=== PATIENT | male | born 1935 | race Caucasian/White ===

== ENCOUNTER → 2017-10-11 13:45 | Outpatient (CLI) | payer OTHER, SELFPAY ==
[2017-10-11 14:02] LABS: Add Manual Diff / Slide Review NO; Basophils Percent Auto 0.7 % (0-2); Eosinophils Percent Auto 0.8 % (2-4); Hematocrit 42.1 % (41-53); Hemoglobin 14.4 g/dL (13.5-17.5); Lymphocytes Percent Auto 29.6 % (25-40); Mean Corpuscular HGB Conc 34.3 % (30-36); Mean Corpuscular Hemoglobin 32.6 PG (26-34); Mean Corpuscular Volume 95.1 fL (80-100); Monocytes Percent Auto 9.2 % (3-14); Neutrophils Absolute Auto 4400 /uL (3000-5900); Neutrophils Percent Auto 59.7 % (50-75); Platelet Count 164 X10^3/uL (150-400); Red Blood Cell Count 4.42 X10^6/uL (4.5-5.9); White Blood Cell Count 7.3 X10^3/uL (4.5-11.0)
[2017-10-11 14:10] LABS: Alanine Aminotransferase 31 IU/L (21-72); Albumin 4.1 g/dL (3.5-5.0); Albumin Globulin Ratio 1.4 (1.0-2.8); Alkaline Phosphatase 78 U/L (38-126); Aspartate Aminotransferase 26 IU/L (17-59); BUN Creatinine Ratio 33.3 (6-22); Bilirubin Total 0.6 mg/dL (0.2-1.3); Blood Urea Nitrogen 40 mg/dL (9-20); Calcium 9.5 mg/dL (8.4-10.2); Carbon Dioxide 26 mmol/L (22-32); Chloride 101 mmol/L (98-107); Globulin 2.9 g/dL (1.7-4.1); Glucose 85 mg/dL (80-110); HEMOLYSIS 20 (0-50); Lactate Dehydrogenase 346 U/L (313-618); Potassium 4.9 mmol/L (3.4-5.1); Sodium 142 mmol/L (137-145)
== END ==
PROVIDERS: Family Provider Family Medicine; PCP Family Medicine; Visit Provider Nurse Practitioner Gerontology
DX: C83.30 Diffuse large B-cell lymphoma, unspecified site (principal)
CPT/HCPCS: 36415; 80053; 83615; 85025

== ENCOUNTER → 2018-02-07 10:18 | Outpatient (CLI) | payer OTHER, SELFPAY ==
[2018-02-07 10:50] LABS: Hemoglobin A1C% w Est Avg Glu 5.7 % (4.0-6.0)
[2018-02-07 11:12] LABS: Alanine Aminotransferase 48 IU/L (21-72); Albumin 4.1 g/dL (3.5-5.0); Albumin Globulin Ratio 1.6 (1.0-2.8); Alkaline Phosphatase 114 U/L (38-126); Aspartate Aminotransferase 31 IU/L (17-59); Bilirubin Total 0.9 mg/dL (0.2-1.3); Blood Urea Nitrogen 36 mg/dL (9-20); Calcium 9.7 mg/dL (8.4-10.2); Carbon Dioxide 31 mmol/L (22-32); Chloride 104 mmol/L (98-107); Cholesterol 88 mg/dL (140-199); Estimated Glomerular Filt Rate > 60.0 mL/min (>60); Globulin 2.6 g/dL (1.7-4.1); Glucose 80 mg/dL (80-110); HDL Cholesterol 39 mg/dL (40-60); HEMOLYSIS < 15 (0-50); LDL Cholesterol Calculated 31 mg/dL (<100); Sodium 144 mmol/L (137-145); Total Protein 6.7 g/dL (6.3-8.2); Triglycerides 90 mg/dL (35-150)
[2018-02-07 11:16] LABS: Potassium 5.4 mmol/L (3.4-5.1)
== END ==
PROVIDERS: PCP Family Medicine; Visit Provider Family Medicine
DX: E11.9 Type 2 diabetes mellitus without complications (principal); I10 Essential (primary) hypertension; Z51.81 Encounter for therapeutic drug level monitoring
CPT/HCPCS: 36415; 80053; 80061; 83036; 84443

== ENCOUNTER → 2018-05-02 14:21 | Outpatient (CLI) | payer OTHER, SELFPAY | PROVIDERS: Family Provider Family Medicine; PCP Family Medicine; Visit Provider Family Medicine | DX: I70.248 Atherosclerosis of native arteries of left leg with ulceration of other part of lower leg (principal); L97.822 Non-pressure chronic ulcer of other part of left lower leg with fat layer exposed; L03.116 Cellulitis of left lower limb; I83.10 Varicose veins of unspecified lower extremity with inflammation; E11.628 Type 2 diabetes mellitus with other skin complications; E11.40 Type 2 diabetes mellitus with diabetic neuropathy, unspecified | CPT/HCPCS: 87070; 87075; 87077; 87186; 87205; 99203; 99213 ==

== ENCOUNTER → 2018-05-09 15:21 | Outpatient (CLI) | payer OTHER, SELFPAY | PROVIDERS: Family Provider Family Medicine; PCP Family Medicine; Visit Provider Family Medicine | DX: I70.248 Atherosclerosis of native arteries of left leg with ulceration of other part of lower leg (principal); L97.822 Non-pressure chronic ulcer of other part of left lower leg with fat layer exposed; E11.622 Type 2 diabetes mellitus with other skin ulcer; E11.40 Type 2 diabetes mellitus with diabetic neuropathy, unspecified; L03.116 Cellulitis of left lower limb; R07.9 Chest pain, unspecified | CPT/HCPCS: 99213 ==

== ENCOUNTER 2018-05-12 13:24 | Emergency (ER) | payer OTHER, SELFPAY ==
[2018-05-12] VITALS (11 sets, daily range): BP systolic 101–176; BP diastolic 50–91; PULSE 70–85; RESP 14–26; TEMP 36.3–36.6; O2SAT 94–100
--- NOTE | 2018-05-12 13:36 | DI.RAD.S_ITS ---
PROCEDURE: XR CHEST 1V INDICATIONS: chest pain TECHNIQUE: One view of the chest was acquired. COMPARISON: Merged With [facility], , CHEST 1 VIEW, 02/03/2014, 16:30. FINDINGS: Surgical changes and devices: None. Lungs and pleura: No pleural effusions or pneumothorax. Ill-defined airspace opacity is again seen in right mid to lower lung field, likely representing previously noted calcified pleural plaque. No definite focal infiltrate. Mediastinum: Aortic arch calcifications are seen. Heart size is normal. Bones and chest wall: No suspicious bony lesions. Overlying soft tissues appear unremarkable. IMPRESSION: Calcified pleural plaques are seen in right lung field. No definite focal infiltrate. No pleural effusion or pneumothorax. Dictated by: Juarez Rascon M.D. on 05/12/2018 at 14:11 Approved by: Juarez Rascon M.D. on 05/12/2018 at 14:13
[2018-05-12 14:12] LABS: Add Manual Diff / Slide Review NO; Basophils Percent Auto 0.6 % (0-2); Eosinophils Percent Auto 1.9 % (2-4); Hematocrit 39.5 % (41-53); Hemoglobin 13.2 g/dL (13.5-17.5); Lymphocytes Percent Auto 31.8 % (25-40); Mean Corpuscular HGB Conc 33.4 % (30-36); Mean Corpuscular Hemoglobin 32.3 PG (26-34); Mean Corpuscular Volume 96.8 fL (80-100); Monocytes Percent Auto 11.9 % (3-14); Neutrophils Absolute Auto 3200 /uL (1500-7000); Neutrophils Percent Auto 53.8 % (50-75); Platelet Count 169 X10^3/uL (150-400); Red Blood Cell Count 4.08 X10^6/uL (4.5-5.9); Red Cell Distribution Width 12.7 % (11.6-14.8)
[2018-05-12 14:17] LABS: INR 1.3 (0.9-1.3)
[2018-05-12 14:20] LABS: PTT Partial Thromboplastin Tim 39 SECONDS (26.4-36.2)
[2018-05-12 14:22] LABS: Alanine Aminotransferase 32 IU/L (21-72); Albumin 3.8 g/dL (3.5-5.0); Albumin Globulin Ratio 1.4 (1.0-2.8); Alkaline Phosphatase 106 U/L (38-126); Aspartate Aminotransferase 24 IU/L (17-59); Bilirubin Total 0.5 mg/dL (0.2-1.3); Blood Urea Nitrogen 28 mg/dL (9-20); Calcium 9.2 mg/dL (8.4-10.2); Carbon Dioxide 25 mmol/L (22-32); Chloride 103 mmol/L (98-107); Creatine Kinase 40 U/L (55-170); Estimated Glomerular Filt Rate > 60.0 mL/min (>60); Globulin 2.7 g/dL (1.7-4.1); Glucose 117 mg/dL (80-110); HEMOLYSIS 22 (0-50); Lipase 34 U/L (23-300); Potassium 4.4 mmol/L (3.4-5.1); Sodium 139 mmol/L (137-145); Total Protein 6.5 g/dL (6.3-8.2)
--- NOTE | 2018-05-12 14:22 | ED.CHESTPAIN ---
HPI - Chest Pain General Chief Complaint: Chest Pain Stated Complaint: ANGINA, HEART PROBLEMS Time Seen by Provider: 05/12/18 13:44 Source: patient Mode of arrival: ambulatory Limitations: no limitations History of Present Illness HPI narrative: Patient is an 82-year-old male who presents with angina. He states he has been having angina attacks every night. He saw a nurse practitioner [employer] 5 days ago he was started on a new medication all long-acting nitroglycerin he is unsure what it is called. However last night he had worsening episodes. He has to stand up when he has the attacks to make it go away last night and this morning was much worse than it ever has been. He was not given fast acting nitroglycerin. He is instructed that if he have return of chest pain that he needs to go immediately to the emergency department. He currently has no chest pain or shortness of breath. He was instructed that he also needs an echocardiogram, stress test, heart monitor. MD complaint: chest pain Related Data Home Medications Medication Instructions Recorded Confirmed aspirin 81 mg PO DAILY #0 11/08/10 05/12/18 [id number]-lycopen-lutein 1 tab PO DAILY #0 11/09/10 05/12/18 [Centrum Silver] ascorbic acid (vitamin C) 500 mg PO DAILY #0 05/18/16 05/12/18 amlodipine [Norvasc] 5 mg PO DAILY 05/12/18 05/12/18 atorvastatin 40 mg PO DAILY 05/12/18 05/12/18 cephalexin 500 mg PO [id number] 05/12/18 05/12/18 hydrochlorothiazide 12.5 mg PO DAILY 05/12/18 05/12/18 isosorbide mononitrate 30 mg PO DAILY 05/12/18 05/12/18 levofloxacin 500 mg PO [id number] 05/12/18 05/12/18 lisinopril 20 mg PO DAILY 05/12/18 05/12/18 metoprolol tartrate 100 mg PO BID 05/12/18 05/12/18 oxycodone-acetaminophen 1 tab PO Q4-6H PRN 05/12/18 05/12/18 Previous Rx's Medication Instructions Recorded glipizide 5 mg tablet 2.5 mg PO BID #90 tab 11/25/17 metformin 500 mg tablet 500 mg PO BID #180 tab 01/31/18 Allergies Allergy/AdvReac Type Severity Reaction Status Date / Time codeine [CODEINE] Allergy Unknown EYES RED, Verified 05/12/18 13:33 PUFF UP Review of Systems Review of Systems GENERAL: Denies chills, fatigue, malaise, fever, sweats, travel HEENT: Denies sinus pain, ear pain, sore throat, difficulty swallowing, neck pain RESPIRATORY: Denies dyspnea, cough, wheezing, hemoptysis, sputum. CARDIOVASCULAR: See HPI GASTROINTESTINAL: Denies nausea, vomiting, abdominal pain, diarrhea, constipation, melena. : Denies dysuria, frequency, incontinence, hematuria, urinary retention, flank pain. MUSCULOSKELETAL: Denies weakness, joint pain, or bony pain SKIN: No rash, no erythema, no pruritus NEUROLOGIC: Denies weakness, dizziness, headache, numbness, change in speech, confusion PSYCHIATRIC: No concerning psychosocial issues. 12 point review of systems is negative except for those stated above and HPI [facility] Medical History Blind (Chronic Unknown) Coronary artery disease (Chronic Unknown) Diabetes (Chronic Unknown) Diabetic neuropathy (Chronic Unknown) Hearing loss (Chronic Unknown) Hyperlipemia (Chronic Unknown) Hypertension (Chronic Unknown) Hx of lymphoma (Resolved ~2014) Surgical History Status post eye surgery Social History Smoking Status: Former smoker Tobacco: How many years used: 35 alcohol intake: never Exam Initial Vital Signs Initial Vital Signs: Vital Signs Temperature 97.8 F 05/12/18 13:29 Pulse Rate 71 05/12/18 13:29 Respiratory Rate 14 05/12/18 13:29 Blood Pressure 176/91 H 05/12/18 13:29 Pulse Oximetry 99 05/12/18 13:29 GENERAL: Alert elderly male no acute distress HEENT: Head atraumatic,EOMI, pupils reactive CARDIOVASCULAR: Regular rate and rhythm without murmurs, rubs or gallops. RESPIRATORY: Breath sounds equal bilaterally, no wheezes rales or rhonchi. ABDOMEN: Soft, nontender. Normoactive bowel sounds all 4 quadrants. No guarding or rebound. EXTREMITIES: Normal range of motion, no clubbing or edema. Neurovascularly intact NEUROLOGICAL: Alert and oriented x4.Normal gait and speech. Cranial nerves II through XII grossly intact. SKIN: Warm, dry, no laceration, no petechiae, no rashes or lesions. Course Orders Ordered: ED Orders 05/12/18 13:36 XR chest 1V Stat EKG-12 Lead Stat 05/12/18 14:05 Complete Blood Count AUTO DIFF Stat Comprehensive Metabolic Panel Stat Lipase Stat Partial Thromboplastin Time Stat Prothrombin Time INR Stat Troponin & CK Cardiac Panel Stat 05/12/18 15:52 Troponin I Stat Vital Signs - 8 hr 05/12/18 13:29 05/12/18 14:03 05/12/18 15:04 Temperature 97.8 F Pulse Rate 71 76 72 Respiratory Rate 14 26 H 17 Blood Pressure 176/91 H Blood Pressure [Left Arm] 111/67 110/50 L Pulse Oximetry 99 94 98 05/12/18 15:30 05/12/18 16:00 05/12/18 16:29 Temperature Pulse Rate 73 76 76 Respiratory Rate 17 14 15 Blood Pressure Blood Pressure [Left Arm] 101/50 L 131/61 134/65 Pulse Oximetry 96 98 96 05/12/18 17:00 05/12/18 18:00 05/12/18 18:34 Temperature Pulse Rate 71 84 85 Respiratory Rate 19 17 14 Blood Pressure Blood Pressure [Left Arm] 124/58 L 144/72 H 144/72 H Pulse Oximetry 95 98 97 MDM - Chest Pain Medical Records Data Attestation: I reviewed the patient's medical records. Lab Data Attestation: I reviewed the patient's lab results. Result diagrams: 05/12/18 14:05 05/12/18 14:05 Lab Results 05/12/18 05/12/18 05/12/18 Range/Units 14:05 14:05 14:05 WBC 6.0 (4.5-11.0) X10^3/uL RBC 4.08 L (4.5-5.9) X10^6/uL Hgb 13.2 L (13.5-17.5) g/dL Hct 39.5 L (41-53) % MCV 96.8 (80-100) fL MCH 32.3 (26-34) PG MCHC 33.4 (30-36) % RDW 12.7 (11.6-14.8) % Plt Count 169 (150-400) X10^3/uL Neut % (Auto) 53.8 (50-75) % Lymph % (Auto) 31.8 (25-40) % [place] % (Auto) 11.9 (3-14) % Eos % (Auto) 1.9 L (2-4) % Baso % (Auto) 0.6 (0-2) % Neut # (Auto) 3200 (3592-6586) /uL PT 15.0 H (10.1-12.7) SECONDS INR 1.3 (0.9-1.3) APTT 39 H (26.4-36.2) SECONDS Sodium 139 (137-145) mmol/L Potassium 4.4 (3.4-5.1) mmol/L Chloride 103 (98-107) mmol/L Carbon Dioxide 25 (22-32) mmol/L BUN 28 H (9-20) mg/dL Creatinine 1.00 (0.66-1.25) mg/dL Estimated GFR > 60.0 (>60) mL/min BUN/Creatinine Ratio 28.0 H (6-22) Glucose 117 H (80-110) mg/dL Calcium 9.2 (8.4-10.2) mg/dL Total Bilirubin 0.5 (0.2-1.3) mg/dL AST 24 (17-59) IU/L ALT 32 (21-72) IU/L Alkaline Phosphatase 106 (38-126) U/L Total Creatine Kinase 40 L (55-170) U/L CK-MB (CK-2) TNP CK-MB (CK-2) Rel Index TNP Troponin I 0.035 H (0.01-0.034) ng/mL Total Protein 6.5 (6.3-8.2) g/dL Albumin 3.8 (3.5-5.0) g/dL Globulin 2.7 (1.7-4.1) g/dL Albumin/Globulin Ratio 1.4 (1.0-2.8) Lipase 34 (23-300) U/L 05/12/18 Range/Units 15:52 WBC (4.5-11.0) X10^3/uL RBC (4.5-5.9) X10^6/uL Hgb (13.5-17.5) g/dL Hct (41-53) % MCV (80-100) fL MCH (26-34) PG MCHC (30-36) % RDW (11.6-14.8) % Plt Count (150-400) X10^3/uL Neut % (Auto) (50-75) % Lymph % (Auto) (25-40) % [place] % (Auto) (3-14) % Eos % (Auto) (2-4) % Baso % (Auto) (0-2) % Neut # (Auto) (1355-6150) /uL PT (10.1-12.7) SECONDS INR (0.9-1.3) APTT (26.4-36.2) SECONDS Sodium (137-145) mmol/L Potassium (3.4-5.1) mmol/L Chloride (98-107) mmol/L Carbon Dioxide (22-32) mmol/L BUN (9-20) mg/dL Creatinine (0.66-1.25) mg/dL Estimated GFR (>60) mL/min BUN/Creatinine Ratio (6-22) Glucose (80-110) mg/dL Calcium (8.4-10.2) mg/dL Total Bilirubin (0.2-1.3) mg/dL AST (17-59) IU/L ALT (21-72) IU/L Alkaline Phosphatase (38-126) U/L Total Creatine Kinase (55-170) U/L CK-MB (CK-2) CK-MB (CK-2) Rel Index Troponin I 0.027 (0.01-0.034) ng/mL Total Protein (6.3-8.2) g/dL Albumin (3.5-5.0) g/dL Globulin (1.7-4.1) g/dL Albumin/Globulin Ratio (1.0-2.8) Lipase (23-300) U/L Imaging Data Chest x-ray: Radiologist's impression: PROCEDURE: XR CHEST 1V INDICATIONS: chest pain TECHNIQUE: One view of the chest was acquired. COMPARISON: [facility], , CHEST 1 VIEW, 02/03/2014, 16:30. FINDINGS: Surgical changes and devices: None. Lungs and pleura: No pleural effusions or pneumothorax. Ill-defined airspace opacity is again seen in right mid to lower lung field, likely representing previously noted calcified pleural plaque. No definite focal infiltrate. Mediastinum: Aortic arch calcifications are seen. Heart size is normal. Bones and chest wall: No suspicious bony lesions. Overlying soft tissues appear unremarkable. IMPRESSION: Calcified pleural plaques are seen in right lung field. No definite focal infiltrate. No pleural effusion or pneumothorax. Dictated by: Juarez Rascon M.D. on 05/12/2018 at 14:11 Approved by: Juarez Rascon M.D. on 05/12/2018 at 14:13 ECG Data Attestation: I personally reviewed and interpreted this ECG as follows: Prior ECG tracings: available for review Interpretation: Normal sinus rhythm with right bundle-branch block rate [address] changes similar to previous EKG MDM Narrative Medical decision making narrative: I have reviewed records from [facility]. 3:50 p.m. I spoke with Dr. Kaiser who was been updated patient's symptoms and test results. Recommend that patient at least have a stress test but thinks patient will likely need a cardiac catheterization. He would be happy to have patient transferred over to [facility] is closed The patient is a [facility] patient I have called and spoken with the [facility] physician. There will be a bed available at [facility] later this evening and patient will be placed into observation. Patient has remained chest pain-free while in the ED. Discharge Plan Departure Patient Disposition: [facility] Clinical Impression: Angina at rest Interventions: ED Discharge Assessment Last Done: 05/12/18 19:15 Prescriptions: No Action metformin [Glucophage] 500 mg tablet 500 mg PO BID Qty: 180 RF: 1 aspirin 81 mg Tablet,Delayed Release (Dr/Ec) 81 mg PO DAILY Qty: 0 RF: 0 [id number]-IH-lycopen-lutein [Centrum Silver] 0.4-300-250 mg-mcg-mcg Tablet 1 tab PO DAILY Qty: 0 RF: 0 ascorbic acid (vitamin C) 500 MG tablet 500 mg PO DAILY Qty: 0 RF: 0 glipizide 5 mg tablet 2.5 mg PO BID Qty: 90 RF: 3 atorvastatin 40 mg Tablet 40 mg PO DAILY RF: 0 metoprolol tartrate 100 mg Tablet 100 mg PO BID RF: 0 isosorbide mononitrate 30 mg Tablet Extended Release 24 Hr 30 mg PO DAILY RF: 0 oxycodone-acetaminophen 5-325 mg Tablet 1 tab PO Q4-6H PRN (Reason: pain) RF: 0 cephalexin 500 mg Capsule 500 mg PO [id number] RF: 0 levofloxacin 500 mg Tablet 500 mg PO [id number] RF: 0 lisinopril 20 mg tablet 20 mg PO DAILY RF: 0 amlodipine [Norvasc] 5 mg tablet 5 mg PO DAILY RF: 0 hydrochlorothiazide 12.5 mg capsule 12.5 mg PO DAILY RF: 0
--- NOTE | 2018-05-12 14:26 | ED_ITS ---
HPI - Chest Pain General Chief Complaint: Chest Pain Stated Complaint: ANGINA, HEART PROBLEMS Time Seen by Provider: 05/12/18 13:44 Source: patient Mode of arrival: ambulatory Limitations: no limitations History of Present Illness HPI narrative: Patient is an 82-year-old male who presents with angina. He states he has been having angina attacks every night. He saw a nurse practitioner cover creaser 5 days ago he was started on a new medication all long -acting nitroglycerin he is unsure what it is called. However last night he had worsening episodes. He has to stand up when he has the attacks to make it go away last night and this morning was much worse than it ever has been. He was not given fast acting nitroglycerin. He is instructed that if he have return of chest pain that he needs to go immediately to the emergency department. He currently has no chest pain or shortness of breath. He was instructed that he also needs an echocardiogram, stress test, heart monitor. MD complaint: chest pain Related Data Home Medications Medication Instructions Recorded Confirmed aspirin 81 mg PO DAILY #0 11/08/10 05/12/18 kfvuscka-nyk-HQ-lycopen-lutein 1 tab PO DAILY #0 11/09/10 05/12/18 [Centrum Silver] ascorbic acid (vitamin C) 500 mg PO DAILY #0 05/18/16 05/12/18 amlodipine [Norvasc] 5 mg PO DAILY 05/12/18 05/12/18 atorvastatin 40 mg PO DAILY 05/12/18 05/12/18 cephalexin 500 mg PO [id number] 05/12/18 05/12/18 hydrochlorothiazide 12.5 mg PO DAILY 05/12/18 05/12/18 isosorbide mononitrate 30 mg PO DAILY 05/12/18 05/12/18 levofloxacin 500 mg PO [id number] 05/12/18 05/12/18 lisinopril 20 mg PO DAILY 05/12/18 05/12/18 metoprolol tartrate 100 mg PO BID 05/12/18 05/12/18 oxycodone-acetaminophen 1 tab PO Q4-6H PRN 05/12/18 05/12/18 Previous Rx's Medication Instructions Recorded glipizide 5 mg tablet 2.5 mg PO BID #90 tab 11/25/17 metformin 500 mg tablet 500 mg PO BID #180 tab 01/31/18 Allergies Allergy/AdvReac Type Severity Reaction Status Date / Time codeine [CODEINE] Allergy Unknown EYES RED, Verified 05/12/18 13:33 PUFF UP Review of Systems Review of Systems GENERAL: Denies chills, fatigue, malaise, fever, sweats, travel HEENT: Denies sinus pain, ear pain, sore throat, difficulty swallowing, neck pain RESPIRATORY: Denies dyspnea, cough, wheezing, hemoptysis, sputum. CARDIOVASCULAR: See HPI GASTROINTESTINAL: Denies nausea, vomiting, abdominal pain, diarrhea, constipation, melena. : Denies dysuria, frequency, incontinence, hematuria, urinary retention, flank pain. MUSCULOSKELETAL: Denies weakness, joint pain, or bony pain SKIN: No rash, no erythema, no pruritus NEUROLOGIC: Denies weakness, dizziness, headache, numbness, change in speech, confusion PSYCHIATRIC: No concerning psychosocial issues. 12 point review of systems is negative except for those stated above and HPI [facility] Medical History Blind (Chronic Unknown) Coronary artery disease (Chronic Unknown) Diabetes (Chronic Unknown) Diabetic neuropathy (Chronic Unknown) Hearing loss (Chronic Unknown) Hyperlipemia (Chronic Unknown) Hypertension (Chronic Unknown) Hx of lymphoma (Resolved ~2014) Surgical History Status post eye surgery Social History Smoking Status: Former smoker Tobacco: How many years used: 35 alcohol intake: never Exam Initial Vital Signs Initial Vital Signs: Vital Signs Temperature 97.8 F 05/12/18 13:29 Pulse Rate 71 05/12/18 13:29 Respiratory Rate 14 05/12/18 13:29 Blood Pressure 176/91 H 05/12/18 13:29 Pulse Oximetry 99 05/12/18 13:29 GENERAL: Alert elderly male no acute distress HEENT: Head atraumatic,EOMI, pupils reactive CARDIOVASCULAR: Regular rate and rhythm without murmurs, rubs or gallops. RESPIRATORY: Breath sounds equal bilaterally, no wheezes rales or rhonchi. ABDOMEN: Soft, nontender. Normoactive bowel sounds all 4 quadrants. No guarding or rebound. EXTREMITIES: Normal range of motion, no clubbing or edema. Neurovascularly intact NEUROLOGICAL: Alert and oriented x4.Normal gait and speech. Cranial nerves II through XII grossly intact. SKIN: Warm, dry, no laceration, no petechiae, no rashes or lesions. Course Orders Ordered: ED Orders 05/12/18 13:36 XR chest 1V Stat EKG-12 Lead Stat 05/12/18 14:05 Complete Blood Count AUTO DIFF Stat Comprehensive Metabolic Panel Stat Lipase Stat Partial Thromboplastin Time Stat Prothrombin Time INR Stat Troponin & CK Cardiac Panel Stat 05/12/18 15:52 Troponin I Stat Vital Signs - 8 hr 05/12/18 13:29 05/12/18 14:03 05/12/18 15:04 Temperature 97.8 F Pulse Rate 71 76 72 Respiratory Rate 14 26 H 17 Blood Pressure 176/91 H Blood Pressure [Left Arm] 111/67 110/50 L Pulse Oximetry 99 94 98 05/12/18 15:30 05/12/18 16:00 05/12/18 16:29 Temperature Pulse Rate 73 76 76 Respiratory Rate 17 14 15 Blood Pressure Blood Pressure [Left Arm] 101/50 L 131/61 134/65 Pulse Oximetry 96 98 96 05/12/18 17:00 05/12/18 18:00 05/12/18 18:34 Temperature Pulse Rate 71 84 85 Respiratory Rate 19 17 14 Blood Pressure Blood Pressure [Left Arm] 124/58 L 144/72 H 144/72 H Pulse Oximetry 95 98 97 MDM - Chest Pain Medical Records Data Attestation: I reviewed the patient's medical records. Lab Data Attestation: I reviewed the patient's lab results. Result diagrams: 05/12/18 14:05 05/12/18 14:05 Lab Results 05/12/18 05/12/18 05/12/18 Range/Units 14:05 14:05 14:05 WBC 6.0 (4.5-11.0) X10^3/uL RBC 4.08 L (4.5-5.9) X10^6/uL Hgb 13.2 L (13.5-17.5) g/dL Hct 39.5 L (41-53) % MCV 96.8 (80-100) fL MCH 32.3 (26-34) PG MCHC 33.4 (30-36) % RDW 12.7 (11.6-14.8) % Plt Count 169 (150-400) X10^3/uL Neut % (Auto) 53.8 (50-75) % Lymph % (Auto) 31.8 (25-40) % [place] % (Auto) 11.9 (3-14) % Eos % (Auto) 1.9 L (2-4) % Baso % (Auto) 0.6 (0-2) % Neut # (Auto) 3200 (9535-6872) /uL PT 15.0 H (10.1-12.7) SECONDS INR 1.3 (0.9-1.3) APTT 39 H (26.4-36.2) SECONDS Sodium 139 (137-145) mmol/L Potassium 4.4 (3.4-5.1) mmol/L Chloride 103 (98-107) mmol/L Carbon Dioxide 25 (22-32) mmol/L BUN 28 H (9-20) mg/dL Creatinine 1.00 (0.66-1.25) mg/dL Estimated GFR > 60.0 (>60) mL/min BUN/Creatinine Ratio 28.0 H (6-22) Glucose 117 H (80-110) mg/dL Calcium 9.2 (8.4-10.2) mg/dL Total Bilirubin 0.5 (0.2-1.3) mg/dL AST 24 (17-59) IU/L ALT 32 (21-72) IU/L Alkaline Phosphatase 106 (38-126) U/L Total Creatine Kinase 40 L (55-170) U/L CK-MB (CK-2) TNP CK-MB (CK-2) Rel Index TNP Troponin I 0.035 H (0.01-0.034) ng/mL Total Protein 6.5 (6.3-8.2) g/dL Albumin 3.8 (3.5-5.0) g/dL Globulin 2.7 (1.7-4.1) g/dL Albumin/Globulin Ratio 1.4 (1.0-2.8) Lipase 34 (23-300) U/L 05/12/18 Range/Units 15:52 WBC (4.5-11.0) X10^3/uL RBC (4.5-5.9) X10^6/uL Hgb (13.5-17.5) g/dL Hct (41-53) % MCV (80-100) fL MCH (26-34) PG MCHC (30-36) % RDW (11.6-14.8) % Plt Count (150-400) X10^3/uL Neut % (Auto) (50-75) % Lymph % (Auto) (25-40) % [place] % (Auto) (3-14) % Eos % (Auto) (2-4) % Baso % (Auto) (0-2) % Neut # (Auto) (5861-1351) /uL PT (10.1-12.7) SECONDS INR (0.9-1.3) APTT (26.4-36.2) SECONDS Sodium (137-145) mmol/L Potassium (3.4-5.1) mmol/L Chloride (98-107) mmol/L Carbon Dioxide (22-32) mmol/L BUN (9-20) mg/dL Creatinine (0.66-1.25) mg/dL Estimated GFR (>60) mL/min BUN/Creatinine Ratio (6-22) Glucose (80-110) mg/dL Calcium (8.4-10.2) mg/dL Total Bilirubin (0.2-1.3) mg/dL AST (17-59) IU/L ALT (21-72) IU/L Alkaline Phosphatase (38-126) U/L Total Creatine Kinase (55-170) U/L CK-MB (CK-2) CK-MB (CK-2) Rel Index Troponin I 0.027 (0.01-0.034) ng/mL Total Protein (6.3-8.2) g/dL Albumin (3.5-5.0) g/dL Globulin (1.7-4.1) g/dL Albumin/Globulin Ratio (1.0-2.8) Lipase (23-300) U/L Imaging Data Chest x-ray: Radiologist's impression: PROCEDURE: XR CHEST 1V INDICATIONS: chest pain TECHNIQUE: One view of the chest was acquired. COMPARISON: [facility], , CHEST 1 VIEW, 02/03/2014, 16:30. FINDINGS: Surgical changes and devices: None. Lungs and pleura: No pleural effusions or pneumothorax. Ill-defined airspace opacity is again seen in right mid to lower lung field, likely representing previously noted calcified pleural plaque. No definite focal infiltrate. Mediastinum: Aortic arch calcifications are seen. Heart size is normal. Bones and chest wall: No suspicious bony lesions. Overlying soft tissues appear unremarkable. IMPRESSION: Calcified pleural plaques are seen in right lung field. No definite focal infiltrate. No pleural effusion or pneumothorax. Dictated by: Juarez Rascon M.D. on 05/12/2018 at 14:11 Approved by: Juarez Rascon M.D. on 05/12/2018 at 14:13 ECG Data Attestation: I personally reviewed and interpreted this ECG as follows: Prior ECG tracings: available for review Interpretation: Normal sinus rhythm with right bundle-branch block rate [address] changes similar to previous EKG MDM Narrative Medical decision making narrative: I have reviewed records from [facility]. 3:50 p.m. I spoke with Dr. Kaiser who was been updated patient's symptoms and test results. Recommend that patient at least have a stress test but thinks patient will likely need a cardiac catheterization. He would be happy to have patient transferred over to [facility] is closed The patient is a [place] patient I have called and spoken with the [place] physician. There will be a bed available at [place] later this evening and patient will be placed into observation. Patient has remained chest pain-free while in the ED. Discharge Plan Departure Patient Disposition: [facility] Clinical Impression: Angina at rest Interventions: ED Discharge Assessment Last Done: 05/12/18 19:15 Prescriptions: No Action metformin [Glucophage] 500 mg tablet 500 mg PO BID Qty: 180 RF: 1 aspirin 81 mg Tablet,Delayed Release (Dr/Ec) 81 mg PO DAILY Qty: 0 RF: 0 yimwnzsu-pny-SN-lycopen-lutein [Centrum Silver] 0.4-300-250 mg-mcg-mcg Tablet 1 tab PO DAILY Qty: 0 RF: 0 ascorbic acid (vitamin C) 500 MG tablet 500 mg PO DAILY Qty: 0 RF: 0 glipizide 5 mg tablet 2.5 mg PO BID Qty: 90 RF: 3 atorvastatin 40 mg Tablet 40 mg PO DAILY RF: 0 metoprolol tartrate 100 mg Tablet 100 mg PO BID RF: 0 isosorbide mononitrate 30 mg Tablet Extended Release 24 Hr 30 mg PO DAILY RF: 0 oxycodone-acetaminophen 5-325 mg Tablet 1 tab PO Q4-6H PRN (Reason: pain) RF: 0 cephalexin 500 mg Capsule 500 mg PO [id number] RF: 0 levofloxacin 500 mg Tablet 500 mg PO [id number] RF: 0 lisinopril 20 mg tablet 20 mg PO DAILY RF: 0 amlodipine [Norvasc] 5 mg tablet 5 mg PO DAILY RF: 0 hydrochlorothiazide 12.5 mg capsule 12.5 mg PO DAILY RF: 0
[2018-05-12 14:34] LABS: Troponin I 0.035 ng/mL (0.01-0.034)
--- NOTE | 2018-05-12 16:22 | PC.NURSE ---
Patient being seen by Wound Clinic for open wound on left ankle/heel area; Dressing dry and intact; Slight edema in ankle area;
[2018-05-12 16:23] LABS: Troponin I 0.027 ng/mL (0.01-0.034)
== END 2018-05-12 20:10 | disposition short-term general hospital (02) ==
PROVIDERS: Emergency Provider Emergency Medicine; PCP Family Medicine
DX: I20.8 Other forms of angina pectoris (principal)
CPT/HCPCS: 36415; 36591; 71045; 80053; 82550; 83690; 84484; 85025; 85610; 85730; 93005; 99285

== ENCOUNTER → 2018-05-23 16:26 | Outpatient (CLI) | payer OTHER, SELFPAY ==
[2018-05-23 17:55] LABS: Blood Urea Nitrogen 25 mg/dL (9-20); Calcium 9.6 mg/dL (8.4-10.2); Carbon Dioxide 22 mmol/L (22-32); Chloride 106 mmol/L (98-107); Estimated Glomerular Filt Rate > 60.0 mL/min (>60); Glucose 109 mg/dL (80-110); HEMOLYSIS < 15 (0-50); Sodium 140 mmol/L (137-145)
== END ==
PROVIDERS: PCP Family Medicine; Visit Provider Nurse Practitioner
DX: I73.9 Peripheral vascular disease, unspecified (principal); I10 Essential (primary) hypertension
CPT/HCPCS: 36415; 80048

== ENCOUNTER → 2018-06-26 11:45 | Outpatient (CLI) | payer OTHER, SELFPAY ==
--- NOTE | 2018-06-26 | DI.CT.S_ITS ---
PROCEDURE: CT ANGIO ABD AORTA RUNOFF INDICATIONS: PVD TECHNIQUE: After the administration of intravenous contrast, 2.5 mm sections acquired from T12 to the feet, with optional delayed image acquisition from the knees to the feet. 3-dimensional maximum intensity projection (MIP) coronal and sagittal reformats, and/or 3-dimensional volume rendering reformatting was then performed. For radiation dose reduction, the following was used: automated exposure control. COMPARISON: [place], [place], PET/CT WHOLE BODY EXTENDED, 01/08/2014, 10:37. FINDINGS: Image quality: Excellent. Extravascular tissues: Lung bases are clear. Heart size is normal. Liver is normal in size and enhancement. Gallbladder is partially visualized and is unremarkable. Biliary system is non dilated. Pancreas enhances normally. Spleen is normal in size and enhancement. There is a low density right 1.7 cm diameter adrenal gland nodule which likely represents an adrenal adenoma.No left-sided adrenal nodules. Kidneys are normal in size and enhancement, without hydronephrosis. Non opacified bowel loops demonstrate normal wall thickness and enhancement. The appendix is thin walled and gas filled. There are scattered sigmoid diverticula. No evidence for diverticulitis. No free fluid or air. No retroperitoneal or mesenteric adenopathy. No ventral hernias. Bladder wall thickness is normal. No inguinal hernias or adenopathy. No suspicious bony lesions. No vertebral body compression fractures. Abdominal aorta: Dense atheromatous calcifications are present throughout the abdominal aorta. A probable ulcerated plaque is present within the mid infrarenal abdominal aorta (series 11, image 137). There is fusiform ectasia of the abdominal aorta without kavita aneurysmal dilatation. The distal aspect of the aorta at the bifurcation is stenotic. A focal high-grade stenosis is present at the origin of the celiac axis. The SMA is patent. A high-grade stenosis is present at the origin of the left renal artery. A high-grade stenosis is present at the origin of the right renal artery. The NAY is patent. Right lower extremity: A severe stenosis or occlusion is present at the origin of the right common iliac artery. The more distal right common iliac artery appears less opacified than the left suggesting occlusion at the origin with reconstitution of the artery via collaterals. The right internal iliac artery is patent but heavily calcified. The right external iliac artery is patent and heavily calcified. The right common femoral artery is patent with dense atheromatous calcification and mural irregularity. The right profunda is patent. The right superficial femoral artery demonstrates diffuse mural irregularity throughout with multifocal moderate stenosis. The right popliteal artery demonstrates diffuse mural irregularity secondary to atheromatous calcification and is patent. The anterior tibial artery is patent to the level of the foot with diffuse atheromatous calcification. The peroneal artery i and the posterior tibial arteries are heavily calcified and are likely occluded at mid calf. Left lower extremity: A severe stenosis is present at the origin of the left common iliac artery. The iliac artery is heavily calcified. The left internal iliac artery is calcified and patent. The left external iliac artery is heavily calcified with a focal high-grade stenosis secondary to atheromatous calcification. Dense atheromatous calcification is present at the left common femoral artery with resultant severe stenosis. The left superficial femoral artery is calcified throughout but is patent with multifocal moderate to high-grade stenoses. The profunda is patent. The left popliteal artery is patent with diffuse mural irregularity secondary to atheromatous calcifications. The anterior tibial artery is patent to the level of the foot and is heavily calcified. The peroneal artery and the posterior tibial arteries are heavily calcified and likely occluded at mid calf. IMPRESSION: 1. Dense atheromatous calcification throughout the bilateral lower extremity arteries. 2. Probable occlusion of the origin of the right common iliac artery with reconstitution of the distal common femoral artery via collaterals. 3. Multifocal moderate to high-grade stenoses throughout the right superficial femoral artery. 4. Single vessel right lower extremity runoff. 5. Focal high-grade stenosis at the origin of the left common iliac artery. 6. Focal high-grade stenosis within the left external iliac artery. 7. Focal high-grade stenosis of the left common femoral artery. 8. Diffuse moderate to high-grade stenoses throughout the left superficial femoral artery. 9. Single vessel left lower extremity runoff. 10. Probable ulcerated plaque within the mid abdominal aorta as described above. Dictated by: Hannah Heredia M.D. on 06/26/2018 at 15:27 Approved by: Hannah Heredia M.D. on 06/26/2018 at 15:52
[2018-06-26 12:29] LABS: BUN Creatinine Ratio 32.2 (6-22); Blood Urea Nitrogen 29 mg/dL (9-20); Calcium 9.1 mg/dL (8.4-10.2); Carbon Dioxide 25 mmol/L (22-32); Chloride 104 mmol/L (98-107); Estimated Glomerular Filt Rate > 60.0 mL/min (>60); Glucose 105 mg/dL (80-110); HEMOLYSIS < 15 (0-50); Potassium 4.7 mmol/L (3.4-5.1); Sodium 139 mmol/L (137-145)
[2018-06-26 12:33] LABS: Hemoglobin A1C% w Est Avg Glu 5.9 % (4.0-6.0)
== END ==
PROVIDERS: Family Provider Registered Nurse; PCP Family Medicine; Visit Provider Internal Medicine Cardiovascular Disease
DX: I70.203 Unspecified atherosclerosis of native arteries of extremities, bilateral legs (principal); I70.0 Atherosclerosis of aorta; I25.10 Atherosclerotic heart disease of native coronary artery without angina pectoris; E11.9 Type 2 diabetes mellitus without complications; I10 Essential (primary) hypertension
CPT/HCPCS: 36415; 75635; 80048; 83036

== ENCOUNTER → 2018-08-07 10:29 | Outpatient (CLI) | payer OTHER, SELFPAY ==
[2018-08-07 12:00] LABS: BUN Creatinine Ratio 32.2 (6-22); Blood Urea Nitrogen 29 mg/dL (9-20); Calcium 9.3 mg/dL (8.4-10.2); Carbon Dioxide 27 mmol/L (22-32); Chloride 103 mmol/L (98-107); Estimated Glomerular Filt Rate > 60.0 mL/min (>60); Glucose 107 mg/dL (80-110); HEMOLYSIS < 15 (0-50); Magnesium 1.8 mg/dL (1.6-2.3); Potassium 4.5 mmol/L (3.4-5.1); Sodium 138 mmol/L (137-145)
== END ==
PROVIDERS: Family Provider Family Medicine; PCP Family Medicine; Visit Provider Registered Nurse
DX: I10 Essential (primary) hypertension (principal); I73.9 Peripheral vascular disease, unspecified; E11.9 Type 2 diabetes mellitus without complications; R07.9 Chest pain, unspecified
CPT/HCPCS: 36415; 80048; 83735

== ENCOUNTER 2018-11-11 22:09 | Emergency (ER) | payer OTHER, SELFPAY ==
[2018-11-11 22:10] VITALS: BP 116/52; PULSE 84; RESP 16; TEMP 36.7; O2SAT 95; BMI 21.4
--- NOTE | 2018-11-11 22:14 | DI.CT.S_ITS ---
PROCEDURE: CT HEAD/BRAIN WO CON INDICATIONS: Fall on blood thinners TECHNIQUE: Noncontrast 4.5 mm thick angled axial sections acquired from the foramen magnum to the vertex, with coronal and sagittal reformats. For radiation dose reduction, the following was used: automated exposure control, adjustment of mA and/or kV according to patient size. COMPARISON: None. FINDINGS: Image quality: Excellent. CSF spaces: Basal cisterns are patent. No extra-axial fluid collections. The ventricles are symmetric in size and shape. Brain: No intracranial bleeds or masses. There is cerebral volume loss for age, with resultant ventricular and sulcal prominence. There are periventricular and deep white matter chronic small vessel ischemic changes. There is intracranial internal carotid artery atherosclerosis. Skull and face: Calvarium and visualized facial bones appear intact, without suspicious lesions. Sinuses: Visualized sinuses and mastoids are clear. IMPRESSION: No acute intracranial abnormality. Concordant with preliminary interpretation. Dictated by: Kindra Zayas M.D. on 11/12/2018 at 8:06 Approved by: Kindra Zayas M.D. on 11/12/2018 at 8:09
--- NOTE | 2018-11-11 22:32 | ED_ITS ---
HPI - Fall General Chief Complaint: Fall Stated Complaint: GLF Time Seen by Provider: 11/11/18 22:14 Source: patient Mode of arrival: EMS Limitations: no limitations History of Present Illness HPI Narrative: Patient is an 83-year-old male. Is on anticoagulation. Stated that he was trying to sit down in his chair at home where he lost his balance and fell onto the floor. He stated he did hit his head. No loss of consciousness. No neck pain. Arrived by EMS for evaluation. He also describes right elbow pain however states that he can move without any problems. Modified trauma called Related Data Home Medications Medication Instructions Recorded Confirmed aspirin 81 mg PO DAILY #0 11/08/10 10/05/18 pzqunxvh-gha-IZ-lycopen-lutein 1 tab PO DAILY #0 11/09/10 10/05/18 [Centrum Silver] ascorbic acid (vitamin C) 500 mg PO DAILY #0 05/18/16 10/05/18 amlodipine [Norvasc] 5 mg PO DAILY 05/12/18 10/05/18 atorvastatin 40 mg PO DAILY 05/12/18 10/05/18 lisinopril 10 mg tablet 10 mg PO DAILY 05/23/18 10/05/18 metoprolol tartrate 75 mg tablet 75 mg PO BID 05/23/18 10/05/18 ticagrelor 90 mg tablet 90 mg PO BID 05/23/18 10/05/18 magnesium oxide 400 mg PO BID 09/03/18 10/05/18 Previous Rx's Medication Instructions Recorded metformin 500 mg tablet 500 mg PO BID #180 tab 08/12/18 gabapentin 300 mg capsule 300 mg PO BEDTIME #30 cap 09/26/18 isosorbide mononitrate ER 30 mg 30 mg PO DAILY #30 tab 09/26/18 tablet,extended release 24 hr glipizide 5 mg tablet 2.5 mg PO BID #90 tab 10/23/18 oxycodone-acetaminophen 1 tab PO Q4-6H PRN #40 tab 11/05/18 lidocaine 4 % topical gel 1 applictn TOP QD-BID PRN #30 gram 11/10/18 trazodone 50 mg tablet 50 mg PO BEDTIME #30 tab 11/10/18 Allergies Allergy/AdvReac Type Severity Reaction Status Date / Time codeine [CODEINE] Allergy Unknown EYES RED, Verified 11/11/18 22:19 PUFF UP Review of Systems Constitutional Denies frequent falls and Denies headache(s) ENT Ears, Nose, Mouth, and Throat: Denies headache(s) and Denies neck pain Cardiovascular Denies chest pain, Denies palpitations and Denies dyspnea Respiratory Denies dyspnea Gastrointestinal Gastrointestinal: Denies abdominal pain, Denies nausea and Denies vomiting Musculoskeletal Denies back pain, Denies myalgias and Denies neck pain Comments: Right elbow pain Integumentary/Breasts Denies new lesions and Denies rash Neurologic Denies behavioral changes, Denies frequent falls and Denies headache(s) Psychiatric Denies behavioral changes Endocrine Denies palpitations Hematologic/Lymphatic Comments: On anti-platelet agent Exam Initial Vital Signs Initial Vital Signs: Vital Signs Temperature 98.1 F 11/11/18 22:10 Pulse Rate 84 11/11/18 22:10 Respiratory Rate 16 11/11/18 22:10 Blood Pressure 116/52 L 11/11/18 22:10 Pulse Oximetry 95 11/11/18 22:10 Const General: cooperative, healthy appearing, comfortable, well developed and well groomed Orientation: alert, awake and oriented x3 HENMT Head: normal to inspection and normocephalic Resp Effort & Inspection: normal respiratory effort Auscultation: clear to auscultation bilaterally Back/Spine/Pelvis Cervical Spine: No collar present, No cervical spinal tenderness and No step off deformity Thoracic/Lumbar Spine: No thoracic spinal tenderness and No lumbar spinal tenderness Neuro General: alert, awake and oriented x3 Extrem General: normal to inspection and capillary refill normal [facility] Medical History Blind (Chronic Unknown) Coronary artery disease (Chronic Unknown) Diabetes (Chronic Unknown) Diabetic neuropathy (Chronic Unknown) Hearing loss (Chronic Unknown) Hyperlipemia (Chronic Unknown) Hypertension (Chronic Unknown) Hx of lymphoma (Resolved ~2014) Social History Smoking Status: Former smoker Tobacco: How many years used: 35 alcohol intake: never Scores GCS [place] coma scale eye opening: Spontaneous [place] coma scale verbal response: Orientated [place] coma scale motor response: Obey commands [place] coma scale total score: 15 Nexus Score for C-Spine Focal Neurologic deficit present: No Midline spinal tenderness present: No Altered level of conciousness present: No Intoxication present: No Distracting Injury Present: No Nexus Criteria for C-spine: 0 Course Orders Ordered: ED Orders 11/11/18 22:14 CT head/brain wo con Stat 11/11/18 22:38 Basic Metabolic Panel Stat Complete Blood Count AUTO DIFF Stat Partial Thromboplastin Time Stat Prothrombin Time INR Stat Vital Signs - 8 hr 11/11/18 22:10 11/12/18 00:04 Temperature 98.1 F Pulse Rate 84 69 Respiratory Rate 16 16 Blood Pressure 116/52 L 134/54 L Pulse Oximetry 95 98 MDM - Fall Lab Data Attestation: I reviewed the patient's lab results. Result diagrams: 11/11/18 22:38 11/11/18 22:38 Lab Results 11/11/18 11/11/18 11/11/18 Range/Units 22:38 22:38 22:38 WBC 5.8 (4.5-11.0) X10^3/uL RBC 3.35 L (4.5-5.9) X10^6/uL Hgb 11.0 L (13.5-17.5) g/dL Hct 31.7 L (41-53) % MCV 94.7 (80-100) fL MCH 32.7 (26-34) PG MCHC 34.6 (30-36) % RDW 14.6 (11.6-14.8) % Plt Count 150 (150-400) X10^3/uL Neut % (Auto) Not Reportable Lymph % (Auto) Not Reportable [place] % (Auto) Not Reportable Eos % (Auto) Not Reportable Baso % (Auto) Not Reportable Lymph # (Auto) Not Reportable [place] # (Auto) Not Reportable Baso # (Auto) Not Reportable Total Counted 100 Seg Neutrophils % 36.0 L (38-70) % Band Neutrophils % 6.0 (3-7) % Lymphocytes % (Manual) 37.0 (25-45) % Atypical Lymphs % 9.0 H ( - 0) % Monocytes % (Manual) 11.0 (2-11) % Basophils % (Manual) 1.0 (0-1) % Neutrophils # (Manual) 2436 L (7759-4927) /uL RBC Morphology See below Anisocytosis 1+ H PT 14.7 H (10.1-12.7) SECONDS INR 1.3 (0.9-1.3) APTT 38 H (26.4-36.2) SECONDS Sodium 137 (137-145) mmol/L Potassium 4.5 (3.4-5.1) mmol/L Chloride 105 (98-107) mmol/L Carbon Dioxide 24 (22-32) mmol/L BUN 25 H (9-20) mg/dL Creatinine 1.10 (0.66-1.25) mg/dL Estimated GFR > 60.0 (>60) mL/min BUN/Creatinine Ratio 22.7 H (6-22) Glucose 69 L (80-110) mg/dL Calcium 8.8 (8.4-10.2) mg/dL Imaging Data CT scan - head: Radiologist's impression: Read by real Radiology No acute intracranial injury or calvarial fracture. Specifically no evidence of intracranial hemorrhage MDM Narrative Medical decision making narrative: Patient is the neck pain. CT scan shows no signs of intracranial hemorrhage. Patient does have full range of motion of his elbow despite some tenderness to palpation. Will hold on x-rays for now. Patient is at baseline neurologic status. Hold on further workup for now. He was given return precautions and follow-up instructions. He expressed understanding and agreement with plan. Discharge Plan Departure Patient Disposition: Home Clinical Impression: Fall Qualifiers: Encounter type: initial encounter Qualified Code(s): W19.XXXA - Unspecified fall, initial encounter Discharge Date/Time: 11/12/18 00:04 Interventions: ED Discharge Assessment Last Done: 11/12/18 00:04 Instructions: How to Prevent Falls Activity Restrictions/Additional Instructions: No injuries were found on your examination today. Contact your primary provider for follow-up. Continue all of your medications as directed. Return to the emergency department for any new or worsening symptoms Prescriptions: No Action lisinopril 10 mg tablet 10 mg PO DAILY RF: 0 metoprolol tartrate 75 mg tablet 75 mg PO BID RF: 0 ticagrelor 90 mg tablet 90 mg PO BID RF: 0 aspirin 81 mg Tablet,Delayed Release (Dr/Ec) 81 mg PO DAILY Qty: 0 RF: 0 Centrum Silver 0.4-300-250 mg-mcg-mcg Tablet 1 tab PO DAILY Qty: 0 RF: 0 ascorbic acid (vitamin C) 500 MG tablet 500 mg PO DAILY Qty: 0 RF: 0 metformin [Glucophage] 500 mg tablet 500 mg PO BID Qty: 180 RF: 1 glipizide 5 mg tablet 2.5 mg PO BID Qty: 90 RF: 0 lidocaine 4 % gel 1 applictn TOP QD-BID PRN (Reason: pain) Qty: 30 RF: 0 trazodone 50 mg tablet 50 mg PO BEDTIME Qty: 30 RF: 2 isosorbide mononitrate 30 mg tablet extended release 24 hr 30 mg PO DAILY Qty: 30 RF: 2 gabapentin 300 mg capsule 300 mg PO BEDTIME Qty: 30 RF: 5 atorvastatin 40 mg Tablet 40 mg PO DAILY RF: 0 amlodipine [Norvasc] 5 mg tablet 5 mg PO DAILY RF: 0 magnesium oxide 400 mg Capsule 400 mg PO BID RF: 0 oxycodone-acetaminophen 5-325 mg Tablet 1 tab PO Q4-6H PRN (Reason: Pain (Scale Score 4-6)) Qty: 40 RF: 0 Referrals: Kristie Sage DO [Primary Care Provider] -
[2018-11-11 22:53] LABS: INR 1.3 (0.9-1.3); Prothrombin Time 14.7 SECONDS (10.1-12.7)
[2018-11-11 22:54] LABS: Hematocrit 31.7 % (41-53); Mean Corpuscular HGB Conc 34.6 % (30-36); Mean Corpuscular Hemoglobin 32.7 PG (26-34); Mean Corpuscular Volume 94.7 fL (80-100); Platelet Count 150 X10^3/uL (150-400); Red Blood Cell Count 3.35 X10^6/uL (4.5-5.9); Red Cell Distribution Width 14.6 % (11.6-14.8); White Blood Cell Count 5.8 X10^3/uL (4.5-11.0)
[2018-11-11 22:55] LABS: Add Manual Diff / Slide Review YES
[2018-11-11 22:56] LABS: PTT Partial Thromboplastin Tim 38 SECONDS (26.4-36.2)
[2018-11-11 22:57] LABS: BUN Creatinine Ratio 22.7 (6-22); Blood Urea Nitrogen 25 mg/dL (9-20); Calcium 8.8 mg/dL (8.4-10.2); Carbon Dioxide 24 mmol/L (22-32); Chloride 105 mmol/L (98-107); Estimated Glomerular Filt Rate > 60.0 mL/min (>60); Glucose 69 mg/dL (80-110); HEMOLYSIS < 15 (0-50); Potassium 4.5 mmol/L (3.4-5.1); Sodium 137 mmol/L (137-145)
[2018-11-11 23:32] LABS: Neutrophils Absolute Manual 2436 /uL (3000-5900); Total Cells Counted 100
[2018-11-11 23:33] LABS: Anisocytosis 1+
[2018-11-12 00:04] VITALS: BP 134/54; PULSE 69; RESP 16; O2SAT 98
== END 2018-11-12 00:04 | disposition home or self-care (01) ==
PROVIDERS: Emergency Provider Emergency Medicine; Family Provider Family Medicine; PCP Family Medicine
DX: S09.90XA Unspecified injury of head, initial encounter (principal); W19.XXXA Unspecified fall, initial encounter; Z79.01 Long term (current) use of anticoagulants
CPT/HCPCS: 36415; 70450; 80048; 85025; 85610; 85730; 99282; 99284

== ENCOUNTER 2018-12-15 15:44 | Observation (INO) | payer OTHER, SELFPAY ==
[2018-12-15] VITALS (12 sets, daily range): BP systolic 97–131; BP diastolic 51–90; PULSE 75–102; RESP 14–21; TEMP 36.4–36.7; O2SAT 92–100; BMI 19.9
--- NOTE | 2018-12-15 15:58 | DI.RAD.S_ITS ---
PROCEDURE: XR CHEST 1V INDICATIONS: suspected sepsis TECHNIQUE: One view of the chest was acquired. COMPARISON: [facility], [place], PET/CT WHOLE BODY EXTENDED, 01/08/2014, 10:37. [facility], CR, CHEST 2 VIEW, 05/02/2009, 14:42. [facility], CT, CT ANGIO ABD AORTA RUNOFF, 06/26/2018, 12:35. [facility], , XR CHEST 1V, 05/12/2018, 13:58. [facility], , CHEST 1 VIEW, 02/03/2014, 16:30. FINDINGS: Surgical changes and devices: Central line from right sided approach extends into the atrial caval junction area were slightly into the right atrium. Lungs and pleura: Lungs are difficult to accurately assess due to reduced inspiration and asymmetric pleural plaquing and calcification are on the right than the left. No pleural effusions or pneumothorax. Mediastinum: Mediastinal contours appear normal. Heart size is normal. Bones and chest wall: No suspicious bony lesions. Overlying soft tissues appear unremarkable. IMPRESSION: 1. 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 No definite pneumonia. 2. Port-A-Cath from right sided approach in the distal SVC or superior margin of the right atrium, no pneumothorax. Dictated by: Greg Orta M.D. on 12/15/2018 at 16:30 Approved by: Greg Orta M.D. on 12/15/2018 at 16:34
[2018-12-15 16:37] LABS: Add Manual Diff / Slide Review NO; Basophils Absolute Auto 0 /uL (0-100); Basophils Percent Auto 0.5 % (0-2); Eosinophils Absolute Auto 200 /uL (0-450); Eosinophils Percent Auto 3.1 % (2-4); Hematocrit 29.2 % (41-53); Hemoglobin 9.8 g/dL (13.5-17.5); Lymphocytes Absolute Auto 1800 /uL (1100-4500); Lymphocytes Percent Auto 27.2 % (25-40); Mean Corpuscular HGB Conc 33.5 % (30-36); Mean Corpuscular Hemoglobin 32.5 PG (26-34); Mean Corpuscular Volume 96.8 fL (80-100); Monocytes Absolute Auto 1000 /uL (0-900); Monocytes Percent Auto 14.8 % (3-14); Neutrophils Absolute Auto 3600 /uL (1500-7000); Neutrophils Percent Auto 54.4 % (50-75); Platelet Count 129 X10^3/uL (150-400); Red Blood Cell Count 3.02 X10^6/uL (4.5-5.9); White Blood Cell Count 6.5 X10^3/uL (4.5-11.0)
[2018-12-15] MEDS: LIDOCAINE 2% INJ MDV 20 ML (16:37)
[2018-12-15 16:40] LABS: INR 1.3 (0.9-1.3); Prothrombin Time 14.4 SECONDS (10.1-12.7)
[2018-12-15 16:42] LABS: PTT Partial Thromboplastin Tim 40 SECONDS (26.4-36.2)
[2018-12-15 16:50] LABS: B Type Natriuretic Peptide 757 (<100)
[2018-12-15 16:52] LABS: Alanine Aminotransferase 34 IU/L (21-72); Albumin 2.7 g/dL (3.5-5.0); Alkaline Phosphatase 200 U/L (38-126); Aspartate Aminotransferase 34 IU/L (17-59); BUN Creatinine Ratio 22.7 (6-22); Bilirubin Total 0.6 mg/dL (0.2-1.3); Blood Urea Nitrogen 25 mg/dL (9-20); Calcium 8.6 mg/dL (8.4-10.2); Carbon Dioxide 25 mmol/L (22-32); Chloride 105 mmol/L (98-107); Creatine Kinase 26 U/L (55-170); Estimated Glomerular Filt Rate > 60.0 mL/min (>60); Globulin 2.7 g/dL (1.7-4.1); Glucose 94 mg/dL (80-110); HEMOLYSIS < 15 (0-50); Lipase 42 U/L (23-300); Potassium 4.3 mmol/L (3.4-5.1); Sodium 138 mmol/L (137-145); Total Protein 5.4 g/dL (6.3-8.2)
[2018-12-15 17:03] LABS: Procalcitonin 0.21 ng/mL (<0.5); Troponin I 0.017 ng/mL (0.01-0.034)
[2018-12-15] MEDS: SODIUM CHLORIDE 0.9% 1,000 ML 1000 ML IV (17:43)
[2018-12-15] MEDS: HYDROMORPHONE 1 MG INJ IV (17:43)
--- NOTE | 2018-12-15 17:56 | ED_ITS ---
HPI - Weakness General Chief complaint: Weakness Stated complaint: low bp/ pain both feet can't stand Time Seen by Provider: 12/15/18 15:55 Source: patient and family Mode of arrival: ambulatory Limitations: no limitations History of Present Illness HPI Narrative: Patient comes emergency department complaining of generalized weakness and being unable to stand for the last couple of days. Patient states that he seems to been becoming progressively weaker for the last couple of weeks. Patient is currently being treated for B-cell lymphoma, and sees Dr. Levin. He has a chronic wound on his left lower leg, which is evaluated daily by a home health nurse. Patient states that he was sent in by the nurse because of possible infection in the leg. Patient denies any nausea or vomiting. No fevers or chills. No chest pain or shortness of breath. He states that he does not feel that he has been drinking enough water and may be dehydrated. No other complaints at this time. Related Data Home Medications Medication Instructions Recorded Confirmed aspirin 81 mg PO DAILY #0 11/08/10 10/05/18 [id number]-lutein 1 tab PO DAILY #0 11/09/10 10/05/18 [Centrum Silver] ascorbic acid (vitamin C) 500 mg PO DAILY #0 05/18/16 10/05/18 amlodipine [Norvasc] 5 mg PO DAILY 05/12/18 12/15/18 atorvastatin 40 mg PO DAILY 05/12/18 12/15/18 lisinopril 10 mg tablet 10 mg PO DAILY 05/23/18 12/15/18 magnesium oxide 400 mg PO BID 09/03/18 10/05/18 metoprolol tartrate 75 mg PO BID 12/15/18 12/15/18 ticagrelor [Brilinta] 90 mg PO BID 12/15/18 12/15/18 Previous Rx's Medication Instructions Recorded metformin 500 mg tablet 500 mg PO BID #180 tab 08/12/18 gabapentin 300 mg capsule 300 mg PO BEDTIME #30 cap 09/26/18 isosorbide mononitrate ER 30 mg 30 mg PO DAILY #30 tab 09/26/18 tablet,extended release 24 hr glipizide 5 mg tablet 2.5 mg PO BID #90 tab 10/23/18 lidocaine 4 % topical gel 1 applictn TOP QD-BID PRN #30 gram 11/10/18 trazodone 50 mg tablet 50 mg PO BEDTIME #30 tab 11/10/18 morphine [MS Contin] 15 mg PO Q12H 30 Days #60 tab 11/19/18 oxycodone-acetaminophen [Percocet] 2 tab PO Q4-6H PRN #80 tab 11/26/18 Allergies Allergy/AdvReac Type Severity Reaction Status Date / Time codeine [CODEINE] Allergy Unknown EYES RED, Verified 12/15/18 15:57 PUFF UP Review of Systems Constitutional Denies chills, Denies fever(s), Denies lethargy and Denies weakness Eyes Denies change in vision, Denies eye discharge, Denies irritation and Denies loss of vision ENT Ears, Nose, Mouth, and Throat: Denies change in voice, Denies neck pain and Den ies sore throat Cardiovascular Denies chest pain, Denies irregular heart rhythm, Denies lightheadedness, Denies palpitations, Denies dyspnea, Denies dyspnea on exertion and Denies orthopnea Respiratory Denies cough, Denies dyspnea, Denies dyspnea on exertion and Denies wheezing Gastrointestinal Gastrointestinal: Denies abdominal pain, Denies change in bowel habits, Denies diarrhea, Denies nausea and Denies vomiting Genitourinary Denies hematuria, Denies flank pain, Denies urinary incontinence and Denies urinary urgency Musculoskeletal Denies neck pain Integumentary/Breasts Denies pruritus, Denies erythema, Denies rash and Denies wounds Neurologic Denies confusion, Denies loss of vision and Denies weakness Psychiatric Denies anxiety, Denies confusion, Denies depression, Denies homicidal ideation and Denies suicidal ideation Endocrine Denies palpitations Hematologic/Lymphatic Denies easy bruising Allergic/Immunologic Denies wheezing PFSH Social History Smoking Status: Former smoker Tobacco: How many years used: 35 alcohol intake: never Exam Initial Vital Signs Initial Vital Signs: Vital Signs Temperature 98.1 F 12/15/18 15:45 Pulse Rate 97 H 12/15/18 15:45 Respiratory Rate 18 12/15/18 15:45 Blood Pressure 108/58 L 12/15/18 15:45 Pulse Oximetry 94 12/15/18 15:45 Const General: cooperative, well developed and frail appearing (Appears chronically ill) Nutritional Appearance: thin Orientation: alert, awake, oriented x3 and not confused [facility] Head: normocephalic and atraumatic Ears: external ears normal Nose: external nose normal and No nasal discharge Face and sinus: face symmetric and No dry mucous membranes Mouth: oral mucosae normal and moist mucous membranes Teeth and gingiva: dentition normal Eyes General: appearance normal, both eyes and all related structures Eyelids: eyelids normal Conjunctivae: conjunctivae normal Sclera: sclerae normal Pupils: PERRL EOM: EOM intact bilaterally Neck Neck: normal visual inspection, trachea midline, No lymphadenopathy, No midline deformity and No JVD Lymphatic: No lymphedema Chest Chest: normal inspection of the chest Resp Effort & Inspection: normal respiratory effort, able to speak in complete sentences, no respiratory distress and no use of accessory muscles Auscultation: clear to auscultation bilaterally, no rales, no rhonchi and no wheezes Cardio Rate: regular rate Rhythm: regular rhythm Heart Sounds: no click, no gallops, no murmurs and no rubs Pulses: normal peripheral pulses GI Inspection: non-distended Palpation: soft, no hepatosplenomegaly, No guarding, No pulsatile mass and No tender Auscultation: normal bowel sounds Back/Spine/Pelvis Back: No CVA tenderness Cervical Spine: cervical ROM normal and No pain with cervical ROM Thoracic/Lumbar Spine: thoracic and lumbar spine normal to inspection Skin General: No jaundice and No petechiae Other: Chronic appearing stage 2 ulcers noted on the posterior medial aspect of the patient's distal left lower leg. No drainage. No associated fluctuance, induration, or erythema. Neuro General: alert, oriented x3, gait normal and no focal motor deficits Speech: speech normal Extrem General: full ROM, no clubbing, cyanosis or edema, no pedal edema and no calf tenderness Psych Appearance: well kempt Mental Status: mental status grossly normal Attitude: cooperative Thought Content: normal and suicidality Judgment: judgment good Course Course Narrative: Patient was worked up with laboratory studies and given a L of 0.9 normal saline emergency department. The patient was hemodynamically stable, and remains so in the emergency department. Additionally, he was afebrile. His ulcer appeared chronic, and I did not find obvious evidence of c ellulitis or associated abscess. As such, antibiotics were not initiated in the emergency department. I did review the patient's labs, which demonstrated a steady decline in the patient's hemoglobin since September, at which time his hemoglobin was 12.7. Every subsequent level was significantly lower and today, his hemoglobin was 9.8. I did discuss the case with Dr. Levin, as the rest of the patient's labs were unremarkable. Given the patient's underlying, debilitating condition, as well as the generalized weakness, Dr. Levin agreed that the patient should be transfused. He requested 2 units, and as such, the patient was admitted to the hospital under Dr. Callahan for observation. I did discuss the plan with the patient family, who were agreeable. Orders Ordered: ED Orders 12/15/18 15:58 XR chest 1V Stat 12/15/18 16:00 EKG-12 Lead Stat 12/15/18 16:23 BNP [B Type Natriuretic Peptide] Stat Complete Blood Count AUTO DIFF Stat Comprehensive Metabolic Panel Stat Lactate (Lactic Acid) Stat Lipase Stat Partial Thromboplastin Time Stat Procalcitonin Stat Prothrombin Time INR Stat Troponin & CK Cardiac Panel Stat 12/15/18 16:46 Blood Culture Stat 12/15/18 17:24 Type and Screen Stat Discontinued Medications Hydromorphone HCl (Dilaudid) 1 mg IV NOW ONE Stop: 12/15/18 17:18 Last Admin: 12/15/18 17:43 Dose: 1 mg Sodium Chloride (Normal Saline 0.9%) 1,000 mls @ 1,000 mls/hr IV BOLUS ONE Stop: 12/15/18 18:13 Last Admin: 12/15/18 17:43 Dose: 1,000 mls/hr Vital Signs - 8 hr 12/15/18 15:45 12/15/18 16:35 12/15/18 17:00 Temperature 98.1 F Pulse Rate 97 H 75 81 Respiratory Rate 18 16 16 Blood Pressure 108/58 L Blood Pressure [Right Arm] 110/53 L 108/58 L Pulse Oximetry 94 98 100 12/15/18 17:43 Temperature Pulse Rate 85 Respiratory Rate 16 Blood Pressure Blood Pressure [Right Arm] 97/56 L Pulse Oximetry 96 MDM - Weakness Medical Records Attestation: I reviewed the patient's medical records. Lab Data Attestation: I reviewed the patient's lab results. Result diagrams: 12/15/18 16:23 12/15/18 16:23 Lab Results 12/15/18 12/15/18 12/15/18 Range/Units 16:23 16:23 16:23 WBC 6.5 (4.5-11.0) X10^3/uL RBC 3.02 L (4.5-5.9) X10^6/uL Hgb 9.8 L (13.5-17.5) g/dL Hct 29.2 L (41-53) % MCV 96.8 (80-100) fL MCH 32.5 (26-34) PG MCHC 33.5 (30-36) % RDW 16.0 H (11.6-14.8) % Plt Count 129 L (150-400) X10^3/uL Neut % (Auto) 54.4 (50-75) % Lymph % (Auto) 27.2 (25-40) % [place] % (Auto) 14.8 H (3-14) % Eos % (Auto) 3.1 (2-4) % Baso % (Auto) 0.5 (0-2) % Neut # (Auto) 3600 (0470-2156) /uL Lymph # (Auto) 1800 (5715-9280) /uL [place] # (Auto) 1000 H (0-900) /uL Eos # (Auto) 200 (0-450) /uL Baso # (Auto) 0 (0-100) /uL PT 14.4 H (10.1-12.7) SECONDS INR 1.3 (0.9-1.3) APTT 40 H D (26.4-36.2) SECONDS Sodium (137-145) mmol/L Potassium (3.4-5.1) mmol/L Chloride (98-107) mmol/L Carbon Dioxide (22-32) mmol/L BUN (9-20) mg/dL Creatinine (0.66-1.25) mg/dL Estimated GFR (>60) mL/min BUN/Creatinine Ratio (6-22) Glucose (80-110) mg/dL Lactate (0.7-2.1) mmol/L Calcium (8.4-10.2) mg/dL Total Bilirubin (0.2-1.3) mg/dL AST (17-59) IU/L ALT (21-72) IU/L Alkaline Phosphatase (38-126) U/L Total Creatine Kinase (55-170) U/L CK-MB (CK-2) CK-MB (CK-2) Rel Index Troponin I (0.01-0.034) ng/mL B-Natriuretic Peptide (<100) Total Protein (6.3-8.2) g/dL Albumin (3.5-5.0) g/dL Globulin (1.7-4.1) g/dL Albumin/Globulin Ratio (1.0-2.8) Lipase (23-300) U/L Procalcitonin 0.21 (<0.5) ng/mL Blood Type Antibody Screen 12/15/18 12/15/18 12/15/18 Range/Units 16:23 16:23 16:23 WBC (4.5-11.0) X10^3/uL RBC (4.5-5.9) X10^6/uL Hgb (13.5-17.5) g/dL Hct (41-53) % MCV (80-100) fL MCH (26-34) PG MCHC (30-36) % RDW (11.6-14.8) % Plt Count (150-400) X10^3/uL Neut % (Auto) (50-75) % Lymph % (Auto) (25-40) % [place] % (Auto) (3-14) % Eos % (Auto) (2-4) % Baso % (Auto) (0-2) % Neut # (Auto) (0811-0499) /uL Lymph # (Auto) (0987-7129) /uL [place] # (Auto) (0-900) /uL Eos # (Auto) (0-450) /uL Baso # (Auto) (0-100) /uL PT (10.1-12.7) SECONDS INR (0.9-1.3) APTT (26.4-36.2) SECONDS Sodium 138 (137-145) mmol/L Potassium 4.3 (3.4-5.1) mmol/L Chloride 105 (98-107) mmol/L Carbon Dioxide 25 (22-32) mmol/L BUN 25 H (9-20) mg/dL Creatinine 1.10 (0.66-1.25) mg/dL Estimated GFR > 60.0 (>60) mL/min BUN/Creatinine Ratio 22.7 H (6-22) Glucose 94 (80-110) mg/dL Lactate 2.0 (0.7-2.1) mmol/L Calcium 8.6 (8.4-10.2) mg/dL Total Bilirubin 0.6 (0.2-1.3) mg/dL AST 34 (17-59) IU/L ALT 34 (21-72) IU/L Alkaline Phosphatase 200 H (38-126) U/L Total Creatine Kinase 26 L (55-170) U/L CK-MB (CK-2) TNP CK-MB (CK-2) Rel Index TNP Troponin I 0.017 (0.01-0.034) ng/mL B-Natriuretic Peptide (<100) Total Protein 5.4 L (6.3-8.2) g/dL Albumin 2.7 L (3.5-5.0) g/dL Globulin 2.7 (1.7-4.1) g/dL Albumin/Globulin Ratio 1.0 (1.0-2.8) Lipase 42 (23-300) U/L Procalcitonin (<0.5) ng/mL Blood Type Antibody Screen 12/15/18 12/15/18 Range/Units 16:23 17:24 WBC (4.5-11.0) X10^3/uL RBC (4.5-5.9) X10^6/uL Hgb (13.5-17.5) g/dL Hct (41-53) % MCV (80-100) fL MCH (26-34) PG MCHC (30-36) % RDW (11.6-14.8) % Plt Count (150-400) X10^3/uL Neut % (Auto) (50-75) % Lymph % (Auto) (25-40) % [place] % (Auto) (3-14) % Eos % (Auto) (2-4) % Baso % (Auto) (0-2) % Neut # (Auto) (1720-2435) /uL Lymph # (Auto) (7764-6464) /uL [place] # (Auto) (0-900) /uL Eos # (Auto) (0-450) /uL Baso # (Auto) (0-100) /uL PT (10.1-12.7) SECONDS INR (0.9-1.3) APTT (26.4-36.2) SECONDS Sodium (137-145) mmol/L Potassium (3.4-5.1) mmol/L Chloride (98-107) mmol/L Carbon Dioxide (22-32) mmol/L BUN (9-20) mg/dL Creatinine (0.66-1.25) mg/dL Estimated GFR (>60) mL/min BUN/Creatinine Ratio (6-22) Glucose (80-110) mg/dL Lactate (0.7-2.1) mmol/L Calcium (8.4-10.2) mg/dL Total Bilirubin (0.2-1.3) mg/dL AST (17-59) IU/L ALT (21-72) IU/L Alkaline Phosphatase (38-126) U/L Total Creatine Kinase (55-170) U/L CK-MB (CK-2) CK-MB (CK-2) Rel Index Troponin I (0.01-0.034) ng/mL B-Natriuretic Peptide 757 H (<100) Total Protein (6.3-8.2) g/dL Albumin (3.5-5.0) g/dL Globulin (1.7-4.1) g/dL Albumin/Globulin Ratio (1.0-2.8) Lipase (23-300) U/L Procalcitonin (<0.5) ng/mL Blood Type O Positive Antibody Screen Negative Imaging Data Chest x-ray: Radiologist's impression: PROCEDURE: XR CHEST 1V INDICATIONS: suspected sepsis TECHNIQUE: One view of the chest was acquired. COMPARISON: [place], [place], PET/CT WHOLE BODY EXTENDED, 01/08/2014, 10:37. [facility], CHEST 2 VIEW, 05/02/2009, 14:42. [facility], CT, CT ANGIO ABD AORTA RUNOFF, 06/26/2018, 12:35. [facility], XR CHEST 1V, 05/12/2018, 13:58. [facility], CHEST 1 VIEW, 02/03/2014, 16:30. FINDINGS: Surgical changes and devices: Central line from right sided approach extends into the atrial caval junction area were slightly into the right atrium. Lungs and pleura: Lungs are difficult to accurately assess due to reduced inspiration and asymmetric pleural plaquing and calcification are on the right than the left. No pleural effusions or pneumothorax. Mediastinum: Mediastinal contours appear normal. Heart size is normal. Bones and chest wall: No suspicious bony lesions. Overlying soft tissues appear unremarkable. IMPRESSION: 1. 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 No definite pneumonia. 2. Port-A-Cath from right sided approach in the distal SVC or superior margin of the right atrium, no pneumothorax. Dictated by: Greg Orta M.D. on 12/15/2018 at 16:30 Approved by: Greg Orta M.D. on 12/15/2018 at 16:34 ECG Data Attestation: I personally reviewed and interpreted this ECG as follows: (See below) Interpretation: Twelve lead EKG performed December 15, 2018 at 4:00 p.m., as follows: Regular ventricular rhythm with a rate of 72 beats per minute UT interval 184 millisecond QRS duration 133 millisecond QTC interval 455 millisecond Normal axis No significant ST T wave changes Interpretation: Normal sinus rhythm; right bundle-branch block; no signs of acute ischemia; abnormal EKG as interpreted by ED MD. Discharge Plan Departure Patient Disposition: Admitted as Observation Clinical Impression: Symptomatic anemia, Acute dehydration, Generalized weakness Diffuse large B-cell lymphoma Qualifiers: Lymphoma site: lower extremity Qualified Code(s): C83.35 - Diffuse large B-cell lymphoma, lymph nodes of inguinal region and lower limb Admit Date/Time: 12/15/18 18:48 Admit Provider: Rebekah Callahan
[2018-12-15] MEDS: SODIUM CHLORIDE 0.9% 1,000 ML 150 ML IV (19:12)
--- NOTE | 2018-12-15 20:12 | PM.HP.1 ---
History of Present Illness Date Patient Seen: 12/15/18 Time Patient Seen: 19:30 Chief complaint: low bp/ pain both feet can't stand Narrative: Carlos Ortega is an 83 y.o. 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 He was found to have a gradual decline in his H and H and was recommended to receive a blood transfusion by his oncologist, Dr. Deluna. He states he has had increased pain in the lower leg where he is currently being treated for the lymphoma. He is due to see Dr. Deluna on SaturdayDecember 17 to review his recent PET scan results and to discuss further treatment. The large B-cell lymphoma is a reoccurance and he had been in remission for approximately 4 years. He has been receiving cycles of Treanda and Rituxan since September 2018. Patient states he has had sensations of being cold, is legally blind, is needing hearing aids as his hearing is worsening, he denies chest pain, but has had shortness of breath for the past 5-6 months. He had an [place] in May of this year and underwent angiocath and had several stents placed. He denies nausea or vomiting but states he gets on the edge of nausea, he endorses mild constipation which is chronic. He states he has urinary urgency, but when he finally goes, he does not feel he is emptying his bladder completely. He previously was diagnosed with BPH and took Flomax for a period, but has been discontinued. 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 (Acute) Hearing loss (Chronic Unknown) Hyperlipemia (Chronic Unknown) Diabetic neuropathy (Chronic Unknown) Coronary artery disease (Chronic Unknown) Hypertension (Chronic Unknown) Surgical History (Updated 12/15/18 @ 20:20 by ADELA Raymundo) Hx of percutaneous transluminal coronary angioplasty (Chronic) Status post eye surgery Family History (Updated 12/15/18 @ 20:21 by ADELA Raymundo) Father CVA (cerebral vascular accident) Mother CVA (cerebral vascular accident) Social History household members: spouse Smoking Status: Former smoker Tobacco: How many years used: 35 alcohol intake: never Family & Social History Safety & Behavioral: Feels Safe in Current Yes Environment Been Physically Hurt or No Threatened By a Person Tobacco & Substance use: Smoking Status Former smoker, 44 year PH, quit 35 years ago alcohol intake rare alcohol intake frequency 0-2 drinks per day Substance Use Type does not use Meds Home Medications Medication Instructions Recorded Confirmed Type aspirin 81 mg PO DAILY #0 11/08/10 10/05/18 History [id number]-[id number]-WU-lycopen-lutein 1 tab PO DAILY #0 11/09/10 10/05/18 History [Centrum Silver] ascorbic acid (vitamin C) 500 mg PO DAILY #0 05/18/16 10/05/18 History amlodipine [Norvasc] 5 mg PO DAILY 05/12/18 12/15/18 History atorvastatin 40 mg PO DAILY 05/12/18 12/15/18 History lisinopril 10 mg tablet 10 mg PO DAILY 05/23/18 12/15/18 History metformin 500 mg tablet 500 mg PO BID #180 tab 08/12/18 12/15/18 Rx magnesium oxide 400 mg PO BID 09/03/18 10/05/18 History gabapentin 300 mg capsule 300 mg PO BEDTIME #30 cap 09/26/18 12/15/18 Rx isosorbide mononitrate ER 30 mg 30 mg PO DAILY #30 tab 09/26/18 12/15/18 Rx tablet,extended release 24 hr glipizide 5 mg tablet 2.5 mg PO BID #90 tab 10/23/18 12/15/18 Rx lidocaine 4 % topical gel 1 applictn TOP QD-BID PRN #30 gram 11/10/18 Rx trazodone 50 mg tablet 50 mg PO BEDTIME #30 tab 11/10/18 12/15/18 Rx morphine [MS Contin] 15 mg PO Q12H 30 Days #60 tab 11/19/18 12/15/18 Rx oxycodone-acetaminophen [Percocet] 2 tab PO Q4-6H PRN #80 tab 11/26/18 12/15/18 Rx metoprolol tartrate 75 mg PO BID 12/15/18 12/15/18 History ticagrelor [Brilinta] 90 mg PO BID 12/15/18 12/15/18 History Allergies Allergy/AdvReac Type Severity Reaction Status Date / Time codeine [CODEINE] Allergy Unknown EYES RED, Verified 12/15/18 15:57 PUFF UP Review of Systems Review of Systems All systems reviewed & are unremarkable except as noted in HPI and below Exam Vital Signs (past 8 hours): - 12/15/18 15:45 12/15/18 16:35 12/15/18 17:00 Temperature 98.1 F Pulse Rate 97 H 75 81 Respiratory Rate 18 16 16 Blood Pressure 108/58 L Blood Pressure [Right Arm] 110/53 L 108/58 L Pulse Oximetry 94 98 100 12/15/18 17:43 12/15/18 19:10 12/15/18 19:34 Temperature 97.9 F Pulse Rate 85 93 H 102 H Respiratory Rate 16 16 17 Blood Pressure 130/90 Blood Pressure [Right Arm] 97/56 L 124/65 Pulse Oximetry 96 95 92 12/15/18 19:58 Temperature 97.7 F Pulse Rate 95 H Respiratory Rate 20 Blood Pressure 111/74 Blood Pressure [Right Arm] Pulse Oximetry Oxygen Delivery Method Room Air Oxygen Flow Rate 0 Narrative Exam Narrative: Gen: Alert, oriented very cachectic 83 y.o. male, appears chronically ill and mildly disheveled HEENT: normocephalic, atraumatic, conjunctiva clear, sclera non-icteric, oral mucosa are dry Neck: supple, full ROM Resp: Lungs CTA, non-labored breathing CV: RRR, no murmur or rubs Abd: soft, non-tender, normoactive BTs Skin: Has venous stasis pigmentation on both lower extremities, has a non-healing ulcer on the left lower leg, fluctuant with no surrounding erythema. Left leg has +3 pitting edema, right leg normal. Toenails are yellowed, thickened and in need of trimming. Neuro: Alert and oriented X 4 w/no focal deficits Extremities: moves all 4 extremities, is a one person assist Psyche: normal mood and affect. Objective Labs Result Diagrams: 12/15/18 16:23 12/15/18 16:23 Labs: Laboratory Results - last 24 hr 12/15/18 12/15/18 12/15/18 16:23 16:23 16:23 WBC 6.5 RBC 3.02 L Hgb 9.8 L Hct 29.2 L MCV 96.8 MCH 32.5 MCHC 33.5 RDW 16.0 H Plt Count 129 L Neut % (Auto) 54.4 Lymph % (Auto) 27.2 [place] % (Auto) 14.8 H Eos % (Auto) 3.1 Baso % (Auto) 0.5 Neut # (Auto) 3600 Lymph # (Auto) 1800 [place] # (Auto) 1000 H Eos # (Auto) 200 Baso # (Auto) 0 PT 14.4 H INR 1.3 APTT 40 H D Sodium Potassium Chloride Carbon Dioxide BUN Creatinine Estimated GFR BUN/Creatinine Ratio Glucose Lactate Calcium Total Bilirubin AST ALT Alkaline Phosphatase Total Creatine Kinase CK-MB (CK-2) CK-MB (CK-2) Rel Index Troponin I B-Natriuretic Peptide Total Protein Albumin Globulin Albumin/Globulin Ratio Lipase Procalcitonin 0.21 Blood Type Antibody Screen Crossmatch 12/15/18 12/15/18 12/15/18 16:23 16:23 16:23 WBC RBC Hgb Hct MCV MCH MCHC RDW Plt Count Neut % (Auto) Lymph % (Auto) [place] % (Auto) Eos % (Auto) Baso % (Auto) Neut # (Auto) Lymph # (Auto) [place] # (Auto) Eos # (Auto) Baso # (Auto) PT INR APTT Sodium 138 Potassium 4.3 Chloride 105 Carbon Dioxide 25 BUN 25 H Creatinine 1.10 Estimated GFR > 60.0 BUN/Creatinine Ratio 22.7 H Glucose 94 Lactate 2.0 Calcium 8.6 Total Bilirubin 0.6 AST 34 ALT 34 Alkaline Phosphatase 200 H Total Creatine Kinase 26 L CK-MB (CK-2) TNP CK-MB (CK-2) Rel Index TNP Troponin I 0.017 B-Natriuretic Peptide Total Protein 5.4 L Albumin 2.7 L Globulin 2.7 Albumin/Globulin Ratio 1.0 Lipase 42 Procalcitonin Blood Type Antibody Screen Crossmatch 12/15/18 12/15/18 16:23 17:24 WBC RBC Hgb Hct MCV MCH MCHC RDW Plt Count Neut % (Auto) Lymph % (Auto) [place] % (Auto) Eos % (Auto) Baso % (Auto) Neut # (Auto) Lymph # (Auto) [place] # (Auto) Eos # (Auto) Baso # (Auto) PT INR APTT Sodium Potassium Chloride Carbon Dioxide BUN Creatinine Estimated GFR BUN/Creatinine Ratio Glucose Lactate Calcium Total Bilirubin AST ALT Alkaline Phosphatase Total Creatine Kinase CK-MB (CK-2) CK-MB (CK-2) Rel Index Troponin I B-Natriuretic Peptide 757 H Total Protein Albumin Globulin Albumin/Globulin Ratio Lipase Procalcitonin Blood Type O Positive Antibody Screen Negative Crossmatch See Detail Assessment & Plan Assessment & Plan narrative: Carlos Ortega will be placed into observation to receive his blood transfusion. It is hoped he can be discharged tomorrow after receiving fluids in time to make his appointment with Dr. Deluna on SaturdayDecember 17. 1. Symptomatic anemia, acute, present on admission ED consulted w/Dr. Deluna who requested transfusion of 2 units PRBC. This has been ordered in the ED and will be administered on the medical/surgical floor. CBC in the am 2. Acute dehydration, new, present on admission Today's BNP is 757. Patient will receive NS at 50 ml/hour or saline locked if he develops symptoms of volume overload. 3. Left lower extremity ulcer, chronic, present on admission This has been being monitored by Dr. Deluna. I have requested a nursing wound care consult and assessment. Ulcer does not appear to be infectious, will repeat CBC and monitor for fevers or other signs of infection to consider before ordering antibiotics. 4. CAD s/p coronary stent placement in May 2018, present on admission Continue home dose of ticagrelor 90 mg po bid Continue home dose isosorbide mononitrate ER 30 mg po daily 5. Hypotension, acute, present on admission Patient normally takes metoprolol tartrate 75 mg po bid, this will be administered with parameters for hypotension. His home dose of amlodipine 5 mg is not due until the am, reassess administration based on blood pressure in the am. 6. Diabetes type 2 Patients oral anti-diabetics will be held He will receive Lantus 10 units starting bedtime and low dose correctional insulin achs. If blood glucose is less than 150, will hold Lantus until the am. 7. HLD Continue home dose of atorvastatin 40 mg po at bedtime. Patient is admitted to observation as his stay is anticipated not to exceed 2 midnights. FEN: NS at 50 ml/hour or saline lock, carb control diet, chemistries in the am. VTE Prophylaxis: Bilateral EMMA hose, holding pharmacological anticoagulation due to patient's gradual anemia Disposition: Unknown at this time Code status: Full code Admission time: 75 minutes Meds reconciled: Partial based on current med list Time Spent With Patient Time with patient: 25 - 35 minutes Scores CHADS-VASc Congestive heart failure: yes Hypertension: yes Age 75 years or older: yes Diabetes mellitus: yes Stroke, TIA, or TE: no Vascular disease: yes Age 65 to 74 years: no Sex category (female): Male CHADS-VASc Score: 6 Quality VTE Deep Vein Thrombosis/Pulmonary Embolism Present on Admission: No
[2018-12-15 20:14] LABS: Hemoglobin A1C% w Est Avg Glu 5.3 % (4.0-6.0)
--- NOTE | 2018-12-15 20:24 | P.HP_ITS ---
History of Present Illness Date Patient Seen: 12/15/18 Time Patient Seen: 19:30 Chief complaint: low bp/ pain both feet can't stand Narrative: Carlos Ortega is an 83 y.o. 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 He was found to have a gradual decline in his H and H and was recommended to receive a blood transfusion by his oncologist, Dr. Deluna. He states he has had increased pain in the lower leg where he is currently being treated for the lymphoma. He is due to see Dr. Deluna on SaturdayDecember 17 to review his recent PET scan results and to discuss further treatment. The large B-cell lymphoma is a reoccurance and he had been in remission for approximately 4 years. He has been receiving cycles of Treanda and Rituxan since September 2018. Patient states he has had sensations of being cold, is legally blind, is needing hearing aids as his hearing is worsening, he denies chest pain, but has had shortness of breath for the past 5-6 months. He had an [place] in May of this year and underwent angiocath and had several stents placed. He denies nausea or vomiting but states he gets on the edge of nausea, he endorses mild constipation which is chronic. He states he has urinary urgency, but when he finally goes, he does not feel he is emptying his bladder completely. He previously was diagnosed with BPH and took Flomax for a period, but has been discontinued. 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 (Acute) Hearing loss (Chronic Unknown) Hyperlipemia (Chronic Unknown) Diabetic neuropathy (Chronic Unknown) Coronary artery disease (Chronic Unknown) Hypertension (Chronic Unknown) Surgical History (Updated 12/15/18 @ 20:20 by ADELA Raymundo) Hx of percutaneous transluminal coronary angioplasty (Chronic) Status post eye surgery Family History (Updated 12/15/18 @ 20:21 by ADELA Raymundo) Father CVA (cerebral vascular accident) Mother CVA (cerebral vascular accident) Social History household members: spouse Smoking Status: Former smoker Tobacco: How many years used: 35 alcohol intake: never Family & Social History Safety & Behavioral: Feels Safe in Current Yes Environment Been Physically Hurt or No Threatened By a Person Tobacco & Substance use: Smoking Status Former smoker, 44 year PH, quit 35 years ago alcohol intake rare alcohol intake frequency 0-2 drinks per day Substance Use Type does not use Meds Home Medications Medication Instructions Recorded Confirmed Type aspirin 81 mg PO DAILY #0 11/08/10 10/05/18 History dghrkwek-wqg-MI-lycopen-lutein 1 tab PO DAILY #0 11/09/10 10/05/18 History [Centrum Silver] ascorbic acid (vitamin C) 500 mg PO DAILY #0 05/18/16 10/05/18 History amlodipine [Norvasc] 5 mg PO DAILY 05/12/18 12/15/18 History atorvastatin 40 mg PO DAILY 05/12/18 12/15/18 History lisinopril 10 mg tablet 10 mg PO DAILY 05/23/18 12/15/18 History metformin 500 mg tablet 500 mg PO BID #180 tab 08/12/18 12/15/18 Rx magnesium oxide 400 mg PO BID 09/03/18 10/05/18 History gabapentin 300 mg capsule 300 mg PO BEDTIME #30 cap 09/26/18 12/15/18 Rx isosorbide mononitrate ER 30 mg 30 mg PO DAILY #30 tab 09/26/18 12/15/18 Rx tablet,extended release 24 hr glipizide 5 mg tablet 2.5 mg PO BID #90 tab 10/23/18 12/15/18 Rx lidocaine 4 % topical gel 1 applictn TOP QD-BID PRN #30 gram 11/10/18 Rx trazodone 50 mg tablet 50 mg PO BEDTIME #30 tab 11/10/18 12/15/18 Rx morphine [MS Contin] 15 mg PO Q12H 30 Days #60 tab 11/19/18 12/15/18 Rx oxycodone-acetaminophen [Percocet] 2 tab PO Q4-6H PRN #80 tab 11/26/18 12/15/18 Rx metoprolol tartrate 75 mg PO BID 12/15/18 12/15/18 History ticagrelor [Brilinta] 90 mg PO BID 12/15/18 12/15/18 History Allergies Allergy/AdvReac Type Severity Reaction Status Date / Time codeine [CODEINE] Allergy Unknown EYES RED, Verified 12/15/18 15:57 PUFF UP Review of Systems Review of Systems All systems reviewed & are unremarkable except as noted in HPI and below Exam Vital Signs (past 8 hours): - 12/15/18 15:45 12/15/18 16:35 12/15/18 17:00 Temperature 98.1 F Pulse Rate 97 H 75 81 Respiratory Rate 18 16 16 Blood Pressure 108/58 L Blood Pressure [Right Arm] 110/53 L 108/58 L Pulse Oximetry 94 98 100 12/15/18 17:43 12/15/18 19:10 12/15/18 19:34 Temperature 97.9 F Pulse Rate 85 93 H 102 H Respiratory Rate 16 16 17 Blood Pressure 130/90 Blood Pressure [Right Arm] 97/56 L 124/65 Pulse Oximetry 96 95 92 12/15/18 19:58 Temperature 97.7 F Pulse Rate 95 H Respiratory Rate 20 Blood Pressure 111/74 Blood Pressure [Right Arm] Pulse Oximetry Oxygen Delivery Method Room Air Oxygen Flow Rate 0 Narrative Exam Narrative: Gen: Alert, oriented very cachectic 83 y.o. male, appears chronically ill and mildly disheveled HEENT: normocephalic, atraumatic, conjunctiva clear, sclera non-icteric, oral mucosa are dry Neck: supple, full ROM Resp: Lungs CTA, non-labored breathing CV: RRR, no murmur or rubs Abd: soft, non-tender, normoactive BTs Skin: Has venous stasis pigmentation on both lower extremities, has a non- healing ulcer on the left lower leg, fluctuant with no surrounding erythema. Left leg has +3 pitting edema, right leg normal. Toenails are yellowed, thickened and in need of trimming. Neuro: Alert and oriented X 4 w/no focal deficits Extremities: moves all 4 extremities, is a one person assist Psyche: normal mood and affect. Objective Labs Result Diagrams: 12/15/18 16:23 12/15/18 16:23 Labs: Laboratory Results - last 24 hr 12/15/18 12/15/18 12/15/18 16:23 16:23 16:23 WBC 6.5 RBC 3.02 L Hgb 9.8 L Hct 29.2 L MCV 96.8 MCH 32.5 MCHC 33.5 RDW 16.0 H Plt Count 129 L Neut % (Auto) 54.4 Lymph % (Auto) 27.2 [place] % (Auto) 14.8 H Eos % (Auto) 3.1 Baso % (Auto) 0.5 Neut # (Auto) 3600 Lymph # (Auto) 1800 [place] # (Auto) 1000 H Eos # (Auto) 200 Baso # (Auto) 0 PT 14.4 H INR 1.3 APTT 40 H D Sodium Potassium Chloride Carbon Dioxide BUN Creatinine Estimated GFR BUN/Creatinine Ratio Glucose Lactate Calcium Total Bilirubin AST ALT Alkaline Phosphatase Total Creatine Kinase CK-MB (CK-2) CK-MB (CK-2) Rel Index Troponin I B-Natriuretic Peptide Total Protein Albumin Globulin Albumin/Globulin Ratio Lipase Procalcitonin 0.21 Blood Type Antibody Screen Crossmatch 12/15/18 12/15/18 12/15/18 16:23 16:23 16:23 WBC RBC Hgb Hct MCV MCH MCHC RDW Plt Count Neut % (Auto) Lymph % (Auto) [place] % (Auto) Eos % (Auto) Baso % (Auto) Neut # (Auto) Lymph # (Auto) [place] # (Auto) Eos # (Auto) Baso # (Auto) PT INR APTT Sodium 138 Potassium 4.3 Chloride 105 Carbon Dioxide 25 BUN 25 H Creatinine 1.10 Estimated GFR > 60.0 BUN/Creatinine Ratio 22.7 H Glucose 94 Lactate 2.0 Calcium 8.6 Total Bilirubin 0.6 AST 34 ALT 34 Alkaline Phosphatase 200 H Total Creatine Kinase 26 L CK-MB (CK-2) TNP CK-MB (CK-2) Rel Index TNP Troponin I 0.017 B-Natriuretic Peptide Total Protein 5.4 L Albumin 2.7 L Globulin 2.7 Albumin/Globulin Ratio 1.0 Lipase 42 Procalcitonin Blood Type Antibody Screen Crossmatch 12/15/18 12/15/18 16:23 17:24 WBC RBC Hgb Hct MCV MCH MCHC RDW Plt Count Neut % (Auto) Lymph % (Auto) [place] % (Auto) Eos % (Auto) Baso % (Auto) Neut # (Auto) Lymph # (Auto) [place] # (Auto) Eos # (Auto) Baso # (Auto) PT INR APTT Sodium Potassium Chloride Carbon Dioxide BUN Creatinine Estimated GFR BUN/Creatinine Ratio Glucose Lactate Calcium Total Bilirubin AST ALT Alkaline Phosphatase Total Creatine Kinase CK-MB (CK-2) CK-MB (CK-2) Rel Index Troponin I B-Natriuretic Peptide 757 H Total Protein Albumin Globulin Albumin/Globulin Ratio Lipase Procalcitonin Blood Type O Positive Antibody Screen Negative Crossmatch See Detail Assessment & Plan Assessment & Plan narrative: Carlos Ortega will be placed into observation to receive his blood transfusion. It is hoped he can be discharged tomorrow after receiving fluids in time to make his appointment with Dr. Deluna on SaturdayDecember 17. 1. Symptomatic anemia, acute, present on admission * ED consulted w/Dr. Deluna who requested transfusion of 2 units PRBC. This has been ordered in the ED and will be administered on the medical/surgical floor. * CBC in the am 2. Acute dehydration, new, present on admission * Today's BNP is 757. Patient will receive NS at 50 ml/hour or saline locked if he develops symptoms of volume overload. 3. Left lower extremity ulcer, chronic, present on admission * This has been being monitored by Dr. Deluna. I have requested a nursing wound care consult and assessment. * Ulcer does not appear to be infectious, will repeat CBC and monitor for fevers or other signs of infection to consider before ordering antibiotics. 4. CAD s/p coronary stent placement in May 2018, present on admission * Continue home dose of ticagrelor 90 mg po bid * Continue home dose isosorbide mononitrate ER 30 mg po daily 5. Hypotension, acute, present on admission * Patient normally takes metoprolol tartrate 75 mg po bid, this will be administered with parameters for hypotension. * His home dose of amlodipine 5 mg is not due until the am, reassess administration based on blood pressure in the am. 6. Diabetes type 2 * Patients oral anti-diabetics will be held * He will receive Lantus 10 units starting bedtime and low dose correctional insulin achs. If blood glucose is less than 150, will hold Lantus until the am. 7. HLD * Continue home dose of atorvastatin 40 mg po at bedtime. Patient is admitted to observation as his stay is anticipated not to exceed 2 midnights. FEN: NS at 50 ml/hour or saline lock, carb control diet, chemistries in the am. VTE Prophylaxis: Bilateral EMMA hose, holding pharmacological anticoagulation due to patient's gradual anemia Disposition: Unknown at this time Code status: Full code Admission time: 75 minutes Meds reconciled: Partial based on current med list Time Spent With Patient Time with patient: 25 - 35 minutes Scores CHADS-VASc Congestive heart failure: yes Hypertension: yes Age 75 years or older: yes Diabetes mellitus: yes Stroke, TIA, or TE: no Vascular disease: yes Age 65 to 74 years: no Sex category (female): Male CHADS-VASc Score: 6 Quality VTE Deep Vein Thrombosis/Pulmonary Embolism Present on Admission: No
[2018-12-15] MEDS: ATORVASTATIN 20 MG TABLET 40 MG PO (21:25)
[2018-12-15] MEDS: GABAPENTIN 300 MG CAPSULE PO (21:25)
[2018-12-15] MEDS: MORPHINE ER 15 MG TABLET PO (21:25)
[2018-12-15] MEDS: METOPROLOL IR 25 MG TABLET 75 MG PO (21:26)
[2018-12-15] MEDS: TRAZODONE 50 MG TABLET PO (21:26)
[2018-12-15] MEDS: OXYCODONE/ACETAMINOPHEN 5/325 TABLET 1 TAB PO (21:37)
[2018-12-15] MEDS: Ticagrelor [Brilinta] 90 MG 90 EACH PO (21:38)
--- NOTE | 2018-12-15 22:38 | PC.ADMIT ---
[address] [place] [address] Admission Note: The patient,Carlos Ortega,83 y/o, was given written information regarding hospital policies, unit procedures and contact persons. Patient's smoking status: Former smoker. Vital Signs - 8 hr 12/15/18 15:45 12/15/18 16:35 12/15/18 17:00 Temperature 98.1 F Pulse Rate 97 H 75 81 Respiratory Rate 18 16 16 Blood Pressure 108/58 L Blood Pressure [Right Arm] 110/53 L 108/58 L Pulse Oximetry 94 98 100 12/15/18 17:43 12/15/18 19:10 12/15/18 19:30 Temperature 97.9 F Pulse Rate 85 93 H 102 H Respiratory Rate 16 16 17 Blood Pressure 130/90 Blood Pressure [Right Arm] 97/56 L 124/65 Pulse Oximetry 96 95 92 12/15/18 19:34 12/15/18 19:58 12/15/18 20:19 Temperature 97.9 F 97.7 F 97.5 F L Pulse Rate 102 H 95 H 100 H Respiratory Rate 17 20 20 Blood Pressure 130/90 111/74 131/51 L Blood Pressure [Right Arm] Pulse Oximetry 92 12/15/18 22:14 Temperature Pulse Rate Respiratory Rate Blood Pressure Blood Pressure [Right Arm] Pulse Oximetry 92 Patient admitted to room 212 from ED via gurney, transferred with slider board. Appears weak and fatigued. LLE edematous, tender, discolored and warm. Son (POA) at bedside providing supportive care and additional medical information. Patient is very [place] and partially blind. Consent obtained for blood transfusion. Required guidance with ADLs. Oriented to room, environment, and plan of care.
[2018-12-16] VITALS (9 sets, daily range): BP systolic 109–121; BP diastolic 44–64; PULSE 77–92; RESP 16–18; TEMP 36.6–36.8; O2SAT 92–96
[2018-12-16] MEDS: OXYCODONE/ACETAMINOPHEN 5/325 TABLET 1 TAB PO ×3 (01:47→05:41)
[2018-12-16 02:49] LABS: Bacteria Urine None Seen
[2018-12-16 02:54] LABS: Appearance Urine UA CLEAR; Bilirubin Urine UA NEGATIVE (NEGATIVE); Color Urine UA YELLOW; Glucose Urine UA NEGATIVE (Negative); Ketones Urine UA NEGATIVE (NEGATIVE); Leukocyte Esterase Urine UA NEGATIVE (NEGATIVE); Nitrite Urine UA NEGATIVE (Negative); Occult Blood Urine UA NEGATIVE (Negative); Protein Urine UA NEGATIVE (Negative); Urobilinogen Urine UA 0.2 E.U./dL (0.2)
[2018-12-16 02:55] LABS: RBC Urine 0-1/HPF (0-5/HPF); WBC Urine 0-1/HPF (0-5/HPF)
[2018-12-16 02:56] LABS: Granular Casts Urine 0-1/LPF; Hyaline Casts Urine 1-5/LPF; Mucus Urine 1+ (Negative)
[2018-12-16 02:59] LABS: Culture Indicated Urine Cult Not Indicated
[2018-12-16] MEDS: SODIUM CHLORIDE 0.45% 1,000 ML 50 ML IV (04:18)
[2018-12-16 06:10] LABS: BUN Creatinine Ratio 27.1 (6-22); Blood Urea Nitrogen 19 mg/dL (9-20); Calcium 8.1 mg/dL (8.4-10.2); Carbon Dioxide 27 mmol/L (22-32); Chloride 106 mmol/L (98-107); Estimated Glomerular Filt Rate > 60.0 mL/min (>60); Glucose 104 mg/dL (80-110); HEMOLYSIS < 15 (0-50); Sodium 138 mmol/L (137-145)
[2018-12-16 06:37] LABS: B Type Natriuretic Peptide 888 (<100)
[2018-12-16 06:49] LABS: Hematocrit 34.1 % (41-53); Hemoglobin 11.7 g/dL (13.5-17.5); Mean Corpuscular HGB Conc 34.3 % (30-36); Mean Corpuscular Hemoglobin 31.8 PG (26-34); Mean Corpuscular Volume 92.6 fL (80-100); Platelet Count 116 X10^3/uL (150-400); Red Blood Cell Count 3.69 X10^6/uL (4.5-5.9); Red Cell Distribution Width 16.7 % (11.6-14.8); White Blood Cell Count 5.3 X10^3/uL (4.5-11.0)
[2018-12-16 06:51] LABS: Add Manual Diff / Slide Review YES
[2018-12-16 06:54] LABS: Neutrophils Absolute Manual 2650 /uL (3000-5900); Total Cells Counted 100
[2018-12-16 06:55] LABS: Anisocytosis 1+; RBC Morphology S
--- NOTE | 2018-12-16 08:43 | P.DS_ITS ---
History of Present Illness Date Patient Seen: 12/15/18 Chief complaint: low bp/ pain both feet can't stand Narrative: Written by Alivia CHAPMAN: Carlos Ortega is an 83 y.o. 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 He was found to have a gradual decline in his H and H and was recommended to receive a blood transfusion by his oncologist, Dr. Deluna. He states he has had increased pain in the lower leg where he is currently being treated for the lymphoma. He is due to see Dr. Deluna on SaturdayDecember 17 to review his recent PET scan results and to discuss further treatment. The large B-cell lymphoma is a reoccurance and he had been in remission for approximately 4 years. He has been receiving cycles of Treanda and Rituxan since September 2018. Patient states he has had sensations of being cold, is legally blind, is needing hearing aids as his hearing is worsening, he denies chest pain, but has had shortness of breath for the past 5-6 months. He had an NV in May of this year and underwent angiocath and had several stents placed. He denies nausea or vomiting but states he gets on the edge of nausea, he endorses mild constipation which is chronic. He states he has urinary urgency, but when he finally goes, he does not feel he is emptying his bladder completely. He previously was diagnosed with BPH and took Flomax for a period, but has been discontinued. Discharge Providers Date of admission: 12/15/18 18:48 Discharge Date: 12/16/18 Primary care physician: Kristie Sage DO Consults: 12/15/18 19:55 Consult to Timekeeper Supervisor Routine Comment: Increase inhome care hours, currently has VNA 12/15/18 20:08 Consult to Wound Care Routine Comment: Consulting Provider: [facility] Discharge provider: Rebekah Callahan DO Summary Discharge Diagnosis: 1. Acute on chronic normocytic anemia, present on admission. Acute portion resolved. 2. Acute dehydration with mild hypotension, present on admission. Resolved. 3. 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 Stable. 4. Chronic left lower extremity ulcer, present on admission. Stable. 5. Peripheral arterial disease with claudication and hyperlipidemia, chronic, present on admission. Presumed stable. 6. CAD status post NV with coronary stent x3, present on admission. Stable. Coronary stent placement in May 2018, present on admission 7. Hypertension, chronic, present on admission. Stable. 8. History of diabetes mellitus type II. Now in remission. Hospital Course: Carlos Ortega is an 83-year-old male with a past medical history significant for CAD status post NV and coronary stenting x3, hypertension, hyperlipidemia, peripheral arterial disease with need for revascularization, and diffuse large B-cell lymphoma undergoing chemotherapy on Treanda and Rituxan who presented for generalized weakness and worsening pain in lower extremities. 1. Acute on chronic normocytic anemia, present on admission. Acute portion resolved. -Secondary to chemotherapy and possibly component of anemia of chronic disease. -The ED physician consulted the patient's oncologist Dr. Levin who requested transfusion of 2 units PRBC and IVF. -Initial hemoglobin 9.8 and hematocrit 29.2. Received 2 units PRBC with appropriate compensation with hemoglobin 11.7 and hematocrit 34.1. 2. Acute dehydration with mild hypotension, present on admission. Resolved. -Patient presented dry with low normal blood pressure. Of note, the patient is on several antihypertensives. -Received 1 L of NS in the ED. Continued gentle IV fluid hydration with normal saline at 75 mL/hr and received approximately 300 mL. Blood pressure stable. 3. 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 Stable. -Patient is followed and managed by Dr. Levin of Oncology. -Patient is previously went through four cycles of R-CHOP and involved field radiation finishing in June 2014. The patient then had relapse in September of 2018 and is undergoing chemotherapy with Treanda and Rituxan with 3 cycles thus far. Recent repeat PET scan is promising. -Received 2 units PRBC as above. -Patient will follow up with Dr. Levin tomorrow at his scheduled appointment to discuss PET scan and further treatment. 4. Chronic left lower extremity ulcer, present on admission. Stable. -Patient previously followed by wound care and was lost to follow-up due to multiple medical issues including: NV with stent placement, recurrence of large B-cell lymphoma, and need for revascularization of lower extremities which has not yet been pursued. -Chronic ulcer on left posterior leg does not appear infected. -Consulted wound care and we appreciate their time and recommendations. Plan to have patient follow up at [facility] for continued advanced wound care management with debridement and improved pain control. 5. Peripheral arterial disease with claudication and hyperlipidemia, chronic, present on admission. Presumed stable. -Continued aspirin 81 mg daily, atorvastatin 40 mg daily at bedtime, Brilinta 90 mg twice daily, and Imdur 30 mg daily. -Continued pain management due to claudication with gabapentin 300 mg daily at bedtime, MS Contin 15 mg every 12 hours, and oxycodone 2 tabs every 4-6 hours as needed for breakthrough pain. -The patient reports he needs revascularization of lower extremities which has been deferred during his cancer treatment. His lower extremity PAD will need to be addressed in the near future as his claudication is worsening bilaterally and likely due to diminished circulation and not the diffuse large B-cell lymphoma of only the left leg. 6. CAD status post NV with coronary stent x3, present on admission. Stable. Coronary stent placement in May 2018, present on admission -Continue aspirin 81 mg daily, atorvastatin 40 mg daily, and Brilinta 90 mg daily. 7. Hypertension, chronic, present on admission. Stable. -Patient initially presented dehydrated with low normal blood pressures. Continue to monitor blood pressures closely. -Continued metoprolol tartrate 75 mg twice daily and Imdur 30 mg daily. -Discontinued amlodipine as this medication causes lower extremity edema and his blood pressures have been low normal. Decreased lisinopril from 10 mg to 5 mg daily due to low normal blood pressures. 8. History of diabetes mellitus type II. Now in remission. -Hemoglobin A1c normal at 5.3%. -Discontinued glipizide and metformin due to risks of hypoglycemia as patient's blood glucose levels were low 80-100's. -Continue diet control and outpatient monitoring per PCP. Status at Discharge Functional status at discharge: uses cane/walker Overall status at discharge: patient is back to baseline Exam Vital Signs (past 8 hours): - 12/16/18 04:10 12/16/18 04:11 12/16/18 08:00 Temperature 98.0 F 98.0 F 98.1 F Pulse Rate 90 90 92 H Respiratory Rate 17 17 18 Blood Pressure 114/64 114/64 109/44 L Pulse Oximetry 92 92 Oxygen Delivery Method Room Air Oxygen Flow Rate 0 Narrative Exam Narrative: General: Elderly gentleman sitting in bedside chair in no acute distress, well- developed, well-nourished, appropriately interactive. HEENT: Normocephalic, atraumatic. External ears without defect. Pupils equal, round, and reactive to light. Legally blind. Anicteric sclerae, moist conjunctivae, and no lid lag. Oropharynx free of erythema and cobble stoning with moist mucosa. Neck: Supple with full range of motion. No jugular venous distension. No lymphadenopathy or thyromegaly. Cardiovascular: Regular rhythm, mild tachycardia without murmurs, rubs, or gallops appreciated. Port on right side of anterior chest without surrounding erythema or edema. Pulmonary: Clear to auscultation bilaterally without crackles, wheezes, or rhonchi. Normal respiratory effort with no use of accessory muscles. Abdomen: Soft, bowel sounds present, nontender, nondistended. No hepatosplenomegaly or masses appreciated. Extremities: No clubbing. Mild bilateral lower extremity edema L>R with poor circulation and dependent erythema but without cyanosis or signs of infarction. Unable to palpate distal left lower extremity pulses. Delayed capillary refill o f bilateral lower extremities L>R. 2 small left lower extremity ulcers which are chronic and do not appear to be infected. Bilateral lower extremity stasis dermatitis. Skin: Normal temperature, turgor, and texture; no subcutaneous nodules appreciated. Neurological: Cranial nerves grossly intact. Psychiatric: Normal mood and affect. Alert and oriented to person, place, and time. Objective Labs Result Diagrams: 12/16/18 05:45 12/16/18 05:45 Labs: Laboratory Results - last 24 hr 12/15/18 12/15/18 12/15/18 16:23 16:23 16:23 WBC 6.5 RBC 3.02 L Hgb 9.8 L Hct 29.2 L MCV 96.8 MCH 32.5 MCHC 33.5 RDW 16.0 H Plt Count 129 L Neut % (Auto) 54.4 Lymph % (Auto) 27.2 [place] % (Auto) 14.8 H Eos % (Auto) 3.1 Baso % (Auto) 0.5 Neut # (Auto) 3600 Lymph # (Auto) 1800 [place] # (Auto) 1000 H Eos # (Auto) 200 Baso # (Auto) 0 Total Counted Seg Neutrophils % Band Neutrophils % Lymphocytes % (Manual) Atypical Lymphs % Monocytes % (Manual) Eosinophils % (Manual) Basophils % (Manual) Neutrophils # (Manual) RBC Morphology Anisocytosis PT 14.4 H INR 1.3 APTT 40 H D Sodium Potassium Chloride Carbon Dioxide BUN Creatinine Estimated GFR BUN/Creatinine Ratio Glucose Hemoglobin A1c Lactate Calcium Total Bilirubin AST ALT Alkaline Phosphatase Total Creatine Kinase CK-MB (CK-2) CK-MB (CK-2) Rel Index Troponin I B-Natriuretic Peptide Total Protein Albumin Globulin Albumin/Globulin Ratio Lipase Procalcitonin 0.21 Urine Color Urine Appearance Urine pH Ur Specific [place] Urine Protein Urine Glucose (UA) Urine Ketones Urine Occult Blood Urine Nitrate Urine Bilirubin Urine Urobilinogen Ur Leukocyte Esterase Urine RBC Urine WBC Urine Bacteria Hyaline Casts Granular Casts Urine Mucus Ur Culture Indicated? Blood Type Antibody Screen Crossmatch 12/15/18 12/15/18 12/15/18 16:23 16:23 16:23 WBC RBC Hgb Hct MCV MCH MCHC RDW Plt Count Neut % (Auto) Lymph % (Auto) [place] % (Auto) Eos % (Auto) Baso % (Auto) Neut # (Auto) Lymph # (Auto) [place] # (Auto) Eos # (Auto) Baso # (Auto) Total Counted Seg Neutrophils % Band Neutrophils % Lymphocytes % (Manual) Atypical Lymphs % Monocytes % (Manual) Eosinophils % (Manual) Basophils % (Manual) Neutrophils # (Manual) RBC Morphology Anisocytosis PT INR APTT Sodium 138 Potassium 4.3 Chloride 105 Carbon Dioxide 25 BUN 25 H Creatinine 1.10 Estimated GFR > 60.0 BUN/Creatinine Ratio 22.7 H Glucose 94 Hemoglobin A1c Lactate 2.0 Calcium 8.6 Total Bilirubin 0.6 AST 34 ALT 34 Alkaline Phosphatase 200 H Total Creatine Kinase 26 L CK-MB (CK-2) TNP CK-MB (CK-2) Rel Index TNP Troponin I 0.017 B-Natriuretic Peptide Total Protein 5.4 L Albumin 2.7 L Globulin 2.7 Albumin/Globulin Ratio 1.0 Lipase 42 Procalcitonin Urine Color Urine Appearance Urine pH Ur Specific [place] Urine Protein Urine Glucose (UA) Urine Ketones Urine Occult Blood Urine Nitrate Urine Bilirubin Urine Urobilinogen Ur Leukocyte Esterase Urine RBC Urine WBC Urine Bacteria Hyaline Casts Granular Casts Urine Mucus Ur Culture Indicated? Blood Type Antibody Screen Crossmatch 12/15/18 12/15/18 12/15/18 16:23 16:23 17:24 WBC RBC Hgb Hct MCV MCH MCHC RDW Plt Count Neut % (Auto) Lymph % (Auto) [place] % (Auto) Eos % (Auto) Baso % (Auto) Neut # (Auto) Lymph # (Auto) [place] # (Auto) Eos # (Auto) Baso # (Auto) Total Counted Seg Neutrophils % Band Neutrophils % Lymphocytes % (Manual) Atypical Lymphs % Monocytes % (Manual) Eosinophils % (Manual) Basophils % (Manual) Neutrophils # (Manual) RBC Morphology Anisocytosis PT INR APTT Sodium Potassium Chloride Carbon Dioxide BUN Creatinine Estimated GFR BUN/Creatinine Ratio Glucose Hemoglobin A1c 5.3 Lactate Calcium Total Bilirubin AST ALT Alkaline Phosphatase Total Creatine Kinase CK-MB (CK-2) CK-MB (CK-2) Rel Index Troponin I B-Natriuretic Peptide 757 H Total Protein Albumin Globulin Albumin/Globulin Ratio Lipase Procalcitonin Urine Color Urine Appearance Urine pH Ur Specific [place] Urine Protein Urine Glucose (UA) Urine Ketones Urine Occult Blood Urine Nitrate Urine Bilirubin Urine Urobilinogen Ur Leukocyte Esterase Urine RBC Urine WBC Urine Bacteria Hyaline Casts Granular Casts Urine Mucus Ur Culture Indicated? Blood Type O Positive Antibody Screen Negative Crossmatch See Detail 12/16/18 12/16/18 12/16/18 02:15 05:45 05:45 WBC RBC Hgb Hct MCV MCH MCHC RDW Plt Count Neut % (Auto) Lymph % (Auto) [place] % (Auto) Eos % (Auto) Baso % (Auto) Neut # (Auto) Lymph # (Auto) [place] # (Auto) Eos # (Auto) Baso # (Auto) Total Counted Seg Neutrophils % Band Neutrophils % Lymphocytes % (Manual) Atypical Lymphs % Monocytes % (Manual) Eosinophils % (Manual) Basophils % (Manual) Neutrophils # (Manual) RBC Morphology Anisocytosis PT INR APTT Sodium 138 Potassium 4.0 Chloride 106 Carbon Dioxide 27 BUN 19 Creatinine 0.70 Estimated GFR > 60.0 BUN/Creatinine Ratio 27.1 H Glucose 104 Hemoglobin A1c Lactate Calcium 8.1 L Total Bilirubin AST ALT Alkaline Phosphatase Total Creatine Kinase CK-MB (CK-2) CK-MB (CK-2) Rel Index Troponin I B-Natriuretic Peptide 888 H Total Protein Albumin Globulin Albumin/Globulin Ratio Lipase Procalcitonin Urine Color Yellow Urine Appearance Clear Urine pH 6.0 Ur Specific [place] 1.010 Urine Protein Negative Urine Glucose (UA) Negative Urine Ketones Negative Urine Occult Blood Negative Urine Nitrate Negative Urine Bilirubin Negative Urine Urobilinogen 0.2 Ur Leukocyte Esterase Negative Urine RBC 0-1/hpf Urine WBC 0-1/hpf Urine Bacteria None seen Hyaline Casts 1-5/lpf Granular Casts 0-1/lpf Urine Mucus 1+ H Ur Culture Indicated? Cult not indicated Blood Type Antibody Screen Crossmatch 12/16/18 05:45 WBC 5.3 RBC 3.69 L Hgb 11.7 L Hct 34.1 L MCV 92.6 D MCH 31.8 MCHC 34.3 RDW 16.7 H Plt Count 116 L Neut % (Auto) Not Reportable Lymph % (Auto) Not Reportable [place] % (Auto) Not Reportable Eos % (Auto) Not Reportable Baso % (Auto) Not Reportable Neut # (Auto) Lymph # (Auto) Not Reportable [place] # (Auto) Not Reportable Eos # (Auto) Baso # (Auto) Not Reportable Total Counted 100 Seg Neutrophils % 49.0 Band Neutrophils % 1.0 L Lymphocytes % (Manual) 31.0 Atypical Lymphs % 2.0 H Monocytes % (Manual) 14.0 H Eosinophils % (Manual) 2.0 Basophils % (Manual) 1.0 Neutrophils # (Manual) 2650 L RBC Morphology S Anisocytosis 1+ H PT INR APTT Sodium Potassium Chloride Carbon Dioxide BUN Creatinine Estimated GFR BUN/Creatinine Ratio Glucose Hemoglobin A1c Lactate Calcium Total Bilirubin AST ALT Alkaline Phosphatase Total Creatine Kinase CK-MB (CK-2) CK-MB (CK-2) Rel Index Troponin I B-Natriuretic Peptide Total Protein Albumin Globulin Albumin/Globulin Ratio Lipase Procalcitonin Urine Color Urine Appearance Urine pH Ur Specific [place] Urine Protein Urine Glucose (UA) Urine Ketones Urine Occult Blood Urine Nitrate Urine Bilirubin Urine Urobilinogen Ur Leukocyte Esterase Urine RBC Urine WBC Urine Bacteria Hyaline Casts Granular Casts Urine Mucus Ur Culture Indicated? Blood Type Antibody Screen Crossmatch Discharge Plan Discharge Plan Patient Disposition: Home Health Service Other facility: [facility] Discharge comment: You're being discharged home and are to continue home health for physical therapy/occupational therapy/nursing for BP monitoring and medic ations/medical office coordinator. You were mildly dehydrated and anemic and received IV fluids and 2 units of blood at the recommendation of your oncologist, Dr. Levin. Please keep your scheduled appointment with Dr. Levin tomorrow morning at 9:20 AM (check in 9 AM). We have also scheduled a hospital follow-up with your PCP, Dr. Sage, on 12/24 at 9:15 AM to discuss your diabetes mellitus type 2 which is now in remission and continued monitoring of blood pressure (please have your home health nurse keep a blood pressure log and take this log to your appointment with Dr. Sage). Your diabetic medications including glipizide and metformin have been stopped and discontinued since you are in remission and these medications can cause low blood sugar which is a medical emergency and can be life-threatening. You may continue to keep your diabetes in remission with diet alone and a handout on Mediterranean diet has been provided. Please have your PCP monitor your BP closely going forward. Your amlodipine has been stopped and discontinued and your lisinopril dose has been lowered to 5 mg daily due to your low normal blood pressures. You may discuss the timing of your needed vascular operation with your PCP and/or your vascular surgeon at [facility]. Discharge Med Rec/Prescriptions Prescriptions: New lisinopril 5 mg tablet 5 mg PO DAILY Qty: 30 RF: 0 Continued aspirin 81 mg Tablet,Delayed Release (Dr/Ec) 81 mg PO DAILY Qty: 0 RF: 0 Centrum Silver 0.4-300-250 mg-mcg-mcg Tablet 1 tab PO DAILY Qty: 0 RF: 0 trazodone 50 mg tablet 50 mg PO BEDTIME Qty: 30 RF: 2 isosorbide mononitrate 30 mg tablet extended release 24 hr 30 mg PO DAILY Qty: 30 RF: 2 gabapentin 300 mg capsule 300 mg PO BEDTIME Qty: 30 RF: 5 atorvastatin 40 mg Tablet 40 mg PO DAILY RF: 0 metoprolol tartrate 50 mg Tablet 75 mg PO BID RF: 0 Brilinta 90 mg Tablet 90 mg PO BID RF: 0 magnesium oxide 400 mg Capsule 400 mg PO BID RF: 0 morphine [MS Contin] 15 mg Tablet Extended Release 15 mg PO Q12H 30 Days Qty: 60 RF: 0 oxycodone-acetaminophen [Percocet] 5-325 mg Tablet 2 tab PO Q4-6H PRN (Reason: Pain (Scale Score 4-6)) Qty: 80 RF: 0 Discontinued lisinopril 10 mg tablet 10 mg PO DAILY RF: 0 metformin [Glucophage] 500 mg tablet 500 mg PO BID Qty: 180 RF: 1 glipizide 5 mg tablet 2.5 mg PO BID Qty: 90 RF: 0 amlodipine [Norvasc] 5 mg tablet 5 mg PO DAILY RF: 0 Follow up/Referrals: Franco Levin MD [Physician] - 12/17/18 9:20 am Kristie Sage DO [Primary Care Provider] - 12/24/18 9:15 am (appt: 12/24 @ 9:[address] landeros @ [address] [place] [address] (dr sage not available) please arrive 15minutes prior to your appointment) Provider Discharge Instructions Diet: Carb-consistent/Diabetic, Low-fat, Low-sodium and Low-cholesterol Activity: Activity as tolerated with forward wheel walker and physical and occupational therapy Visit Report/Discharge Packet Instructions: The Mediterranean Diet and Good Health Discharge Data Primary Care Provider: Kristie Sage Attending Provider: Rebekah Callahan Admit Date/Time: 12/15/18 18:48 Quality VTE Deep Vein Thrombosis/Pulmonary Embolism Present on Admission: No
[2018-12-16] MEDS: ISOSORBIDE MONONITRATE ER 30 MG TABLET PO (08:49)
[2018-12-16] MEDS: LISINOPRIL 10 MG TABLET PO (08:49)
[2018-12-16] MEDS: METOPROLOL IR 25 MG TABLET 75 MG PO (08:49)
[2018-12-16] MEDS: ASPIRIN EC 81 MG TABLET PO (08:49)
[2018-12-16] MEDS: MORPHINE ER 15 MG TABLET PO (08:49)
[2018-12-16] MEDS: Ticagrelor [Brilinta] 90 MG 90 EACH PO (08:50)
[2018-12-16] MEDS: AMLODIPINE 5 MG TABLET PO (08:51)
[2018-12-16] MEDS: SODIUM CHLORIDE 0.9% 300 ML 75 ML IV (09:07)
--- NOTE | 2018-12-16 09:14 | CM.DANOTE ---
Addendum entered by Oksana Vang R.N. 12/16/18 10:56: Faxed over wound consult note by Ayaka Spear, to [facility] Addendum entered by Oksana Vang R.N. 12/16/18 10:53: Faxed over med list, DC summary noting medications as well, and orders to add BEAD FILLER, in conjunction with current disciplines, which include nursing, O.T, and P.T. Addendum entered by Oksana Vang R.N. 12/16/18 10:04: Discussed patient at team rounds, will add BEAD FILLER. Dr. Venegas wants to ensure that medications and BP is being monitored, for patient is legally blind. Original Note: DCP: Case received, EMR reviewed and met with patient. Introduced self and role. Was able to get some baseline information regarding living situation from patient. DCP assessment completed with information currently available. Patient is an 83 year old male who admitted yesterday afternoon to the care of the hospitalist team. PCP: Dr. Sage. Payer: confirmed: [employer]. Patient came to the hospital via family vehicle secondary to weakness. He is currently under the care of Dr. Levin. Patient has history of B-Cell Lymphoma, and has been going through Chemo. He was given 2 units of blood yesterday, and is under observation. He resides at home with his , Ping, who he stated, she is pretty incapacated. He stated that she uses a walker like he does for mobility. Confirmed that patient is currently under [facility] for nursing, dressing to lower extremity wound twice a week. He will also be getting P.T. and O.T. Confirmed this with Sasha at [facility]. Asked her is BEAD FILLER was on board, and is not. May see about adding this to home health. Will discuss at team rounds. A wound clinic consult has also been put in. Patient is discharging today, and will send [facility] discharge summary and order for BEAD FILLER to add regarding caregiving resources. Patient stated that he has two sons in the area. One lives in [facility], who patient stated is his POA. P: DCP to fax over DC summary to [facility], and orders. Patient is to be discharged home today. Oksana Vang RN/Gravity Prospecting Operator Helper
--- NOTE | 2018-12-16 10:17 | PC.NURSE ---
Wound Nurse Consult Note Mr Ortega is know to me as we have seen him twice at the [facility] late April 2018 and early May 2018. At that time Dr. Goodwin spoke with Dr. Rice, vascular surgeon and Dr. Restrepo, vice president supply chain. Mr. Ortega was admitted to [place] for cardiac stents and was not able to follow up here at the [facility]. Today I am consulted to assess his B-cell lymphoma wounds. He has two, one located on the left posterior ankle measuring 2.2 x 3.0 x 0.4 cm. The wound is covered in slough. The wound edges are unattached and have epiboly. The second wound is located on the left ankle, medial measuring 1.5x 1.4x 0.3 and covered in slough. This wound also has unattached edges with epioboly. His left foot and leg are edematous. He has dependant rubor. I am unable to palpate a pulse in his left foot due to edema. His leg measures: Left Foot: up by 10 =26 Left Ankle: up by 10 = 23 Left Calf: up by 30 =35 Right Foot: 22.5 Right Ankle: 19 Right Calf: 30 He is wearing full length EMMA hose bi-lat. I removed the coversite from the wounds, which had a moderate amount of serous drainage. I cleaned the wounds with Normal Saline, pat dry and placed an [place] Border Foam. He has been followed by home health for wound care. He is willing to return to the wound care center for advanced wound care, as I feel we will be able to help with wound debridement, and exudate management and possible wound pain management.
--- NOTE | 2018-12-16 13:08 | PC.NURSE ---
Pt now visiting with Son Shahid at the bedside. Pt will finish his lunch, get dressed, and his port will be heplocked. Spoke with Oncology Dr. Levin's office and they said to leave Pt's Portacath accessed since he has an appointment-labs and tx tomorrow morning. Reviewed d/c info with Pt and Son-discussed d/c meds, med dose changes and discontinued meds, time of last dose, reviewed stroke education, and follow up appointments. Pt and Son deny further questions and Pt is ready to be taken out to POV with Son and all belongings via W/C when dressed.
--- NOTE | 2018-12-16 13:10 | CM.DPC ---
DCP Cont: Met with patient, who stated, his son Shahid will be picking him up. Son just showed up in room, confirmed with him that he is DPOA. Gave him a copy of his med list, and he is aware of some changes. He helps set up his medisets at home. ILIR Maloney will also be going over meds as well. Let son know that [facility] was updated, and information was sent to them. Confirmed that patient will see Dr. Levin tomorrow. P: Patient is being discharged home today. Oksana Vang RN/Snow Technician
--- NOTE | 2018-12-16 13:57 | PC.NURSE ---
Pt out via w/c by CAP PARTS CUTTER to POV with son and all belongings
== END 2018-12-16 13:58 | disposition home health service (06) ==
LOC: ED 18:45 → AC 18:48
PROVIDERS: Nurse Practitioner Family; Admitting Provider Internal Medicine; Emergency Provider Emergency Medicine; Family Provider Family Medicine; PCP Family Medicine; Visit Provider Internal Medicine
DX: D64.81 Anemia due to antineoplastic chemotherapy (principal); T45.1X5A Adverse effect of antineoplastic and immunosuppressive drugs, initial encounter; E86.0 Dehydration; C85.15 Unspecified B-cell lymphoma, lymph nodes of inguinal region and lower limb; L98.499 Non-pressure chronic ulcer of skin of other sites with unspecified severity; E11.51 Type 2 diabetes mellitus with diabetic peripheral angiopathy without gangrene; Z79.84 Long term (current) use of oral hypoglycemic drugs; I10 Essential (primary) hypertension
CPT/HCPCS: 36415; 36430; 36591; 71045; 80048; 80053; 81001; 82550; 82962; 83036; 83605; 83690; 83880; 84145; 84484; 85025; 85610; 85730; 86850; 86900; 86901; 87040; 93005; 93010; 96361; 96374; 99283; 99285; G0378; P9016; P9040; J1170; J7050

== ENCOUNTER → 2018-12-24 13:45 | Oncology outpatient (ONC) | payer OTHER, SELFPAY ==
[2018-04-02 14:45] LABS: Add Manual Diff / Slide Review NO; Basophils Percent Auto 0.7 % (0-2); Eosinophils Percent Auto 2.2 % (2-4); Hematocrit 40.8 % (41-53); Hemoglobin 13.9 g/dL (13.5-17.5); Lymphocytes Percent Auto 33.3 % (25-40); Mean Corpuscular HGB Conc 34.1 % (30-36); Mean Corpuscular Hemoglobin 33.4 PG (26-34); Mean Corpuscular Volume 97.7 fL (80-100); Monocytes Percent Auto 10.1 % (3-14); Neutrophils Absolute Auto 3200 /uL (3000-5900); Neutrophils Percent Auto 53.7 % (50-75); Platelet Count 163 X10^3/uL (150-400); Red Blood Cell Count 4.18 X10^6/uL (4.5-5.9); Red Cell Distribution Width 12.8 % (11.6-14.8)
[2018-04-02 14:57] LABS: Alanine Aminotransferase 38 IU/L (21-72); Albumin 4.2 g/dL (3.5-5.0); Albumin Globulin Ratio 1.4 (1.0-2.8); Alkaline Phosphatase 107 U/L (38-126); Aspartate Aminotransferase 39 IU/L (17-59); Bilirubin Total 0.6 mg/dL (0.2-1.3); Blood Urea Nitrogen 27 mg/dL (9-20); Calcium 9.1 mg/dL (8.4-10.2); Carbon Dioxide 27 mmol/L (22-32); Chloride 103 mmol/L (98-107); Estimated Glomerular Filt Rate > 60.0 mL/min (>60); Globulin 2.9 g/dL (1.7-4.1); Glucose 90 mg/dL (80-110); Lactate Dehydrogenase 541 U/L (313-618); Sodium 141 mmol/L (137-145); Total Protein 7.1 g/dL (6.3-8.2)
[2018-04-02 15:00] LABS: HEMOLYSIS 68 (0-50)
--- NOTE | 2018-04-02 15:08 | ONC.PN ---
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 Four cycles of R-CHOP. 2. Involved field radiation finishing in June 2014. Interval history: The patient is an 82-year-old man with a history of diffuse large B-cell lymphoma involving his left leg. He completed his therapy nearly 4 years ago. Today he complains of an open ulcer on the back of his left heel. It has been present for about 1 week. He does not recall any prior tumor or mass. There was no trauma. He has not noted any other open areas in the leg. The area is somewhat tender if the bumps against something but it is otherwise not painful. His has been using Neosporin on the area. There been no new masses. He does have ongoing discoloration of the skin of the leg and edema that has been present for many years. He has not noted any adenopathy. His appetite has been good. He has not been losing any weight. No fevers or chills. He does have occasional night sweats. These are not new. He denies any other changes in his health. His medications include amlodipine vitamin C aspirin a glipizide hydrochlorothiazide lisinopril metformin metoprolol and simvastatin. His past medical history is notable for coronary artery disease. He has had a prior stent placement. He does have a history of diabetes hypertension and hyperlipidemia. Home Medications and Allergies Home Medications Medication Instructions Recorded Confirmed Type ASPIRIN (Aspir-Low) 81 mg PO #0 11/08/10 01/31/18 History MULTIVITAMIN (One Daily 1 tab PO #0 11/09/10 01/31/18 History Multivitamin) melatonin 5 mg PO HS #0 02/17/16 01/31/18 History ascorbic acid (vitamin C) 500 mg PO QDAY #0 05/18/16 01/31/18 History cetirizine 10 mg PO QDAY #30 tab 05/18/16 01/31/18 Rx simvastatin 20 mg tablet 20 mg PO HS #90 tab 11/13/17 01/31/18 Rx metoprolol tartrate 50 mg tablet 50 mg PO BID #180 tab 11/22/17 01/31/18 Rx glipizide 5 mg tablet 2.5 mg PO BID #90 tab 11/25/17 01/31/18 Rx lisinopril 20 mg tablet 20 mg PO QDAY #90 tab 12/23/17 01/31/18 Rx amlodipine 5 mg tablet 5 mg PO QDAY #90 tab 01/15/18 01/31/18 Rx hydrocodone 5 mg-acetaminophen 325 1 tab PO Q4-6H PRN #15 tab 01/31/18 Rx mg tablet hydroxyzine HCl 25 mg tablet 25 mg PO BID PRN #60 tab 01/31/18 Rx metformin 500 mg tablet 500 mg PO BID #180 tab 01/31/18 Rx hydrochlorothiazide 12.5 mg capsule 12.5 mg PO QDAY #90 cap 03/04/18 Rx Allergies Allergy/AdvReac Type Severity Reaction Status Date / Time codeine [CODEINE] Allergy Unknown EYES RED, Verified 01/31/18 13:42 PUFF UP Exam - Constitutional positive no acute distress, positive average body habitus - Routine HEENT Exam Head: Present: normocephalic, atraumatic Eye: Present: EOMI, PERRL. Absent: conjunctival icterus, scleral injection ENT: Present: mucous membranes moist, oropharynx clear - Routine Neck Exam Present: supple. Absent: lymphadenopathy, thyromegaly - Routine Chest/Breast/Axilla Exam Axillae: Absent: lymphadenopathy - Routine Respiratory Exam Present: Clear to auscultation bilaterally. Absent: rales, wheezes - Routine Cardiovascular Exam Present: RRR, S1, S2. Absent: murmur - Routine Abdominal Exam Present: soft, normoactive bowel sounds. Absent: tenderness, organomegaly - Routine Extremities Exam Present: edema Comments: He has 1+ lower extremity edema. On the left foot there is darkening of the skin up to just proximal to the ankle. On the posterior heel, there is an area that is about 1 to 1-1/2 cm in diameter that is ulcerated. There is no purulence. I do not feel any mass. He does have some thickening of the toenails. - Routine Skin Exam Present: wounds. Absent: petechiae - Routine Neurological Exam Present: alert, oriented X3 - Routine Psychiatric Exam Present: normal affect, normal thought process Results - Labs Laboratory Last Values WBC 6.0 X10^3/uL (4.5-11.0) 04/02/18 14:32 RBC 4.18 X10^6/uL (4.5-5.9) L 04/02/18 14:32 Hgb 13.9 g/dL (13.5-17.5) 04/02/18 14:32 Hct 40.8 % (41-53) L 04/02/18 14:32 MCV 97.7 fL (80-100) 04/02/18 14:32 MCH 33.4 PG (26-34) 04/02/18 14:32 MCHC 34.1 % (30-36) 04/02/18 14:32 RDW 12.8 % (11.6-14.8) 04/02/18 14:32 Plt Count 163 X10^3/uL (150-400) 04/02/18 14:32 Neut % (Auto) 53.7 % (50-75) 04/02/18 14:32 Lymph % (Auto) 33.3 % (25-40) 04/02/18 14:32 [place] % (Auto) 10.1 % (3-14) 04/02/18 14:32 Eos % (Auto) 2.2 % (2-4) 04/02/18 14:32 Baso % (Auto) 0.7 % (0-2) 04/02/18 14:32 Neut # (Auto) 3200 /uL (6618-9943) 04/02/18 14:32 Sodium 141 mmol/L (137-145) 04/02/18 14:32 Potassium 5.0 mmol/L (3.4-5.1) 04/02/18 14:32 Chloride 103 mmol/L (98-107) 04/02/18 14:32 Carbon Dioxide 27 mmol/L (22-32) 04/02/18 14:32 BUN 27 mg/dL (9-20) H 04/02/18 14:32 Creatinine 0.90 mg/dL (0.66-1.25) 04/02/18 14:32 Estimated GFR > 60.0 mL/min (>60) 04/02/18 14:32 BUN/Creatinine Ratio 30.0 (6-22) H 04/02/18 14:32 Glucose 90 mg/dL (80-110) 04/02/18 14:32 Calcium 9.1 mg/dL (8.4-10.2) 04/02/18 14:32 Total Bilirubin 0.6 mg/dL (0.2-1.3) 04/02/18 14:32 AST 39 IU/L (17-59) 04/02/18 14:32 ALT 38 IU/L (21-72) 04/02/18 14:32 Alkaline Phosphatase 107 U/L (38-126) 04/02/18 14:32 Lactate Dehydrogenase 541 U/L (313-618) 04/02/18 14:32 Total Protein 7.1 g/dL (6.3-8.2) 04/02/18 14:32 Albumin 4.2 g/dL (3.5-5.0) 04/02/18 14:32 Globulin 2.9 g/dL (1.7-4.1) 04/02/18 14:32 Albumin/Globulin Ratio 1.4 (1.0-2.8) 04/02/18 14:32 - Imaging Additional studies: Procedures Incision with removal of foreign body or device from skin and subcutaneous tissue (12/02/14) Insertion of totally implantable vascular access device [VAD] (02/03/14) Assessment and Plan (1) Diffuse large B-cell lymphoma Current visit: No Status: Acute This is an 82-year-old man with a history of diffuse large B-cell lymphoma involving the leg. He is nearly 4 years out from the end of his therapy. He has a new ulcerated area on the left heel. His believes that it is getting better and there is no masslike area. My suspicion that it represents recurrent disease is relatively low. However, if it does not heal or if it enlarges over time, a biopsy may be required to rule out recurrence. He will return to clinic in about 2-3 weeks for follow-up but sooner should his lesion progress.
[2018-04-03 14:24] VITALS: BP 141/73; PULSE 67; RESP 18; TEMP 36.6; O2SAT 97
[2018-04-23 15:18] VITALS: BP 133/62; PULSE 73; RESP 18; TEMP 36.5; O2SAT 98
--- NOTE | 2018-04-23 15:37 | ONC.PN ---
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 Four cycles of R-CHOP. 2. Involved field radiation finishing in June 2014. Interval history: The patient is an 82-year-old man with a history of diffuse large B-cell lymphoma involving his left leg. He completed his therapy nearly 4 years ago. He was seen here last about 3 weeks ago with a open ulcer on the back of his left ankle. I did been there for about a week. He thought that perhaps it was getting better. However, in the ensuing 3 weeks the lesion has actually enlarged. He is getting serous drainage from it. He notes some increasing tenderness. It sometimes radiates up into the calf. He has not noted any nodularity or masslike areas. No fevers chills or sweats. He denies any worsening shortness of breath or cough. No adenopathy. His appetite has been stable. He denies any other changes in his health. His medications include amlodipine vitamin C aspirin a glipizide hydrochlorothiazide lisinopril metformin metoprolol and simvastatin. His past medical history is notable for coronary artery disease. He has had a prior stent placement. He does have a history of diabetes hypertension and hyperlipidemia. - Patient Self-Reported Symptoms SR eye issues: Vision changes SR Musculoskeletal issues: Difficulty walking SR Neuro issues: Numbness or tingling, Difficulty balancing Home Medications and Allergies Home Medications Medication Instructions Recorded Confirmed Type ASPIRIN (Aspir-Low) 81 mg PO DAILY #0 11/08/10 04/02/18 History MULTIVITAMIN (One Daily 1 tab PO DAILY #0 11/09/10 04/02/18 History Multivitamin) melatonin 5 mg PO HS #0 02/17/16 04/02/18 History ascorbic acid (vitamin C) 500 mg PO QDAY #0 05/18/16 04/02/18 History simvastatin 20 mg tablet 20 mg PO HS #90 tab 11/13/17 04/02/18 Rx metoprolol tartrate 50 mg tablet 50 mg PO BID #180 tab 11/22/17 04/02/18 Rx glipizide 5 mg tablet 2.5 mg PO BID #90 tab 11/25/17 04/02/18 Rx lisinopril 20 mg tablet 20 mg PO QDAY #90 tab 12/23/17 04/02/18 Rx amlodipine 5 mg tablet 5 mg PO QDAY #90 tab 01/15/18 04/02/18 Rx hydrocodone 5 mg-acetaminophen 325 1 tab PO Q4-6H PRN #15 tab 01/31/18 04/02/18 Rx mg tablet hydroxyzine HCl 25 mg tablet 25 mg PO BID PRN #60 tab 01/31/18 04/02/18 Rx metformin 500 mg tablet 500 mg PO BID #180 tab 01/31/18 04/02/18 Rx hydrochlorothiazide 12.5 mg capsule 12.5 mg PO QDAY #90 cap 03/04/18 04/02/18 Rx Allergies Allergy/AdvReac Type Severity Reaction Status Date / Time codeine [CODEINE] Allergy Unknown EYES RED, Verified 01/31/18 13:42 PUFF UP Exam - Constitutional positive no acute distress, positive average body habitus - Routine HEENT Exam Head: Present: normocephalic, atraumatic Eye: Present: EOMI, PERRL. Absent: conjunctival icterus, scleral injection ENT: Present: mucous membranes moist, oropharynx clear - Routine Neck Exam Present: supple. Absent: lymphadenopathy, thyromegaly - Routine Respiratory Exam Present: Clear to auscultation bilaterally. Absent: rales, wheezes - Routine Cardiovascular Exam Present: RRR, S1, S2. Absent: murmur - Routine Abdominal Exam Present: soft, normoactive bowel sounds. Absent: tenderness - Routine Extremities Exam Absent: cyanosis, clubbing Comments: He does have 1 to 2+ lower extremity edema on the left. There is some darkening of the skin over the foot and lower calf. He has an ulcerated area in the posterior left ankle that is about 2-3 cm in diameter. The skin is dry with some peeling. - Routine Neurological Exam Present: alert, oriented X3 - Routine Psychiatric Exam Present: normal affect, normal thought process Results - Labs Laboratory Last Values WBC 6.0 X10^3/uL (4.5-11.0) 04/02/18 14:32 RBC 4.18 X10^6/uL (4.5-5.9) L 04/02/18 14:32 Hgb 13.9 g/dL (13.5-17.5) 04/02/18 14:32 Hct 40.8 % (41-53) L 04/02/18 14:32 MCV 97.7 fL (80-100) 04/02/18 14:32 MCH 33.4 PG (26-34) 04/02/18 14:32 MCHC 34.1 % (30-36) 04/02/18 14:32 RDW 12.8 % (11.6-14.8) 04/02/18 14:32 Plt Count 163 X10^3/uL (150-400) 04/02/18 14:32 Neut % (Auto) 53.7 % (50-75) 04/02/18 14:32 Lymph % (Auto) 33.3 % (25-40) 04/02/18 14:32 [place] % (Auto) 10.1 % (3-14) 04/02/18 14:32 Eos % (Auto) 2.2 % (2-4) 04/02/18 14:32 Baso % (Auto) 0.7 % (0-2) 04/02/18 14:32 Neut # (Auto) 3200 /uL (1150-1721) 04/02/18 14:32 Sodium 141 mmol/L (137-145) 04/02/18 14:32 Potassium 5.0 mmol/L (3.4-5.1) 04/02/18 14:32 Chloride 103 mmol/L (98-107) 04/02/18 14:32 Carbon Dioxide 27 mmol/L (22-32) 04/02/18 14:32 BUN 27 mg/dL (9-20) H 04/02/18 14:32 Creatinine 0.90 mg/dL (0.66-1.25) 04/02/18 14:32 Estimated GFR > 60.0 mL/min (>60) 04/02/18 14:32 BUN/Creatinine Ratio 30.0 (6-22) H 04/02/18 14:32 Glucose 90 mg/dL (80-110) 04/02/18 14:32 Calcium 9.1 mg/dL (8.4-10.2) 04/02/18 14:32 Total Bilirubin 0.6 mg/dL (0.2-1.3) 04/02/18 14:32 AST 39 IU/L (17-59) 04/02/18 14:32 ALT 38 IU/L (21-72) 11/28/18 14:32 Alkaline Phosphatase 107 U/L (38-126) 04/02/18 14:32 Lactate Dehydrogenase 541 U/L (313-618) 04/02/18 14:32 Total Protein 7.1 g/dL (6.3-8.2) 04/02/18 14:32 Albumin 4.2 g/dL (3.5-5.0) 04/02/18 14:32 Globulin 2.9 g/dL (1.7-4.1) 04/02/18 14:32 Albumin/Globulin Ratio 1.4 (1.0-2.8) 04/02/18 14:32 - Imaging Additional studies: Procedures Incision with removal of foreign body or device from skin and subcutaneous tissue (12/02/14) Insertion of totally implantable vascular access device [VAD] (02/03/14) Assessment and Plan (1) Diffuse large B-cell lymphoma Current visit: No Status: Acute This is an 82-year-old man with a history of diffuse large B-cell lymphoma involving the leg. He is nearly 4 years out from the end of his therapy. He has no obvious recurrence. He does have a worsening ulcerated area on his left ankle. There is no obvious infection or purulence. It seems to be getting worse. Will make referral to the wound clinic. If it does not heal or if there any masslike areas, he may need a biopsy. He will return to clinic in about 2 months or so for follow-up but sooner should the need arise.
[2018-09-03 10:10] VITALS: BP 141/72; PULSE 75; RESP 18; TEMP 36.4; O2SAT 98
--- NOTE | 2018-09-03 15:26 | ONC.PN ---
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 Four cycles of R-CHOP. 2. Involved field radiation finishing in June 2014. Interval history: The patient is an 82-year-old man with a history of diffuse large B-cell lymphoma involving his left leg. At his last visit here, he had a ulcerated area on his right ankle it was not getting better. We made a referral to the wound clinic. He was treated there with dressing changes for awhile but was not making any progress. He then underwent an evaluation for peripheral vascular disease and was found to have it. He then developed an episode of chest pain was found have had a heart attack. He had several stents placed. He has not had any further episodes of chest pain. he was evaluated by a surgeon for possible revascularization procedure in his leg. He then had a biopsy of the ulcerated area. Unfortunately, that did show recurrent diffuse large B-cell lymphoma. The patient notes ongoing pain in the ankle and calf that has been getting worse. He has not noted any other new aches or pains. No fevers chills or sweats. He has not noted any adenopathy. He has not had any further chest pain or pressure. He does have occasional dyspnea. No GI complaints. His medications include amlodipine vitamin C aspirin a glipizide hydrochlorothiazide lisinopril metformin metoprolol and simvastatin. His past medical history is notable for coronary artery disease. He has had a prior stent placement. He does have a history of diabetes hypertension and hyperlipidemia. - Patient Self-Reported Symptoms SR Constitution: Fatigue/Malaise SR eye issues: Vision changes SR respiratory issues: Shortness of breath SR Skin issues: Skin rash or itching SR Musculoskeletal issues: Joint pain or swelling SR Neuro issues: Numbness or tingling, Difficulty balancing Home Medications and Allergies Home Medications Medication Instructions Recorded Confirmed Type aspirin 81 mg PO DAILY #0 11/08/10 09/03/18 History frqisxtd-emv-WE-lycopen-lutein 1 tab PO DAILY #0 11/09/10 09/03/18 History [Centrum Silver] ascorbic acid (vitamin C) 500 mg PO DAILY #0 05/18/16 09/03/18 History amlodipine [Norvasc] 5 mg PO DAILY 05/12/18 09/03/18 History atorvastatin 40 mg PO DAILY 05/12/18 09/03/18 History isosorbide mononitrate 30 mg PO DAILY 05/12/18 09/03/18 History glipizide 5 mg tablet 5 mg PO BID tab 05/23/18 09/03/18 History lisinopril 10 mg tablet 10 mg PO DAILY 05/23/18 09/03/18 History metoprolol tartrate 75 mg tablet 75 mg PO BID 05/23/18 09/03/18 History ticagrelor 90 mg tablet 90 mg PO BID 05/23/18 09/03/18 History metformin 500 mg tablet 500 mg PO BID #180 tab 08/12/18 09/03/18 Rx acyclovir 400 mg PO BID #60 tab 09/03/18 Rx magnesium oxide 400 mg PO BID 09/03/18 09/03/18 History ondansetron HCl 8 mg PO Q8H PRN #30 tab 09/03/18 Rx Allergies Allergy/AdvReac Type Severity Reaction Status Date / Time codeine [CODEINE] Allergy Unknown EYES RED, Verified 06/20/18 16:38 PUFF UP Exam Vital signs: Vital Signs Temp Pulse Resp BP Pulse Ox 09/03/18 10:10 97.6 F 75 18 141/72 H 98 Intake and Output 09/02/18 09/03/18 09/03/18 23:59 07:59 15:59 Other: Weight 69.7 kg Patient Weight 09/03/18 23:59 Weight 69.7 kg - Constitutional positive no acute distress, positive average body habitus - Routine HEENT Exam Head: Present: normocephalic, atraumatic Eye: Present: EOMI, PERRL. Absent: conjunctival icterus, scleral injection ENT: Present: mucous membranes moist, oropharynx clear - Routine Neck Exam Present: supple. Absent: lymphadenopathy, thyromegaly - Routine Chest/Breast/Axilla Exam Axillae: Absent: lymphadenopathy - Routine Respiratory Exam Present: Clear to auscultation bilaterally. Absent: rales, wheezes - Routine Cardiovascular Exam Present: RRR, S1, S2. Absent: murmur - Routine Abdominal Exam Present: soft, normoactive bowel sounds. Absent: tenderness, organomegaly, mass - Routine Extremities Exam Present: edema Comments: He has 1 to 2+ bilateral lower extremity edema. He has a dressing on his left ankle that is clean dry and intact. I do not clearly feel any pulses. Skin is dry. - Routine Neurological Exam Present: alert, oriented X3 - Routine Psychiatric Exam Present: normal affect, normal thought process Results - Labs Laboratory Last Values WBC 6.0 X10^3/uL (4.5-11.0) 04/02/18 14:32 RBC 4.18 X10^6/uL (4.5-5.9) L 04/02/18 14:32 Hgb 13.9 g/dL (13.5-17.5) 04/02/18 14:32 Hct 40.8 % (41-53) L 04/02/18 14:32 MCV 97.7 fL (80-100) 04/02/18 14:32 MCH 33.4 PG (26-34) 04/02/18 14:32 MCHC 34.1 % (30-36) 04/02/18 14:32 RDW 12.8 % (11.6-14.8) 04/02/18 14:32 Plt Count 163 X10^3/uL (150-400) 04/02/18 14:32 Neut % (Auto) 53.7 % (50-75) 04/02/18 14:32 Lymph % (Auto) 33.3 % (25-40) 04/02/18 14:32 [place] % (Auto) 10.1 % (3-14) 04/02/18 14:32 Eos % (Auto) 2.2 % (2-4) 04/02/18 14:32 Baso % (Auto) 0.7 % (0-2) 04/02/18 14:32 Neut # (Auto) 3200 /uL (8490-9055) 04/02/18 14:32 Sodium 141 mmol/L (137-145) 04/02/18 14:32 Potassium 5.0 mmol/L (3.4-5.1) 04/02/18 14:32 Chloride 103 mmol/L (98-107) 04/02/18 14:32 Carbon Dioxide 27 mmol/L (22-32) 04/02/18 14:32 BUN 27 mg/dL (9-20) H 04/02/18 14:32 Creatinine 0.90 mg/dL (0.66-1.25) 04/02/18 14:32 Estimated GFR > 60.0 mL/min (>60) 04/02/18 14:32 BUN/Creatinine Ratio 30.0 (6-22) H 04/02/18 14:32 Glucose 90 mg/dL (80-110) 04/02/18 14:32 Calcium 9.1 mg/dL (8.4-10.2) 04/02/18 14:32 Total Bilirubin 0.6 mg/dL (0.2-1.3) 04/02/18 14:32 AST 39 IU/L (17-59) 04/02/18 14:32 ALT 38 IU/L (21-72) 04/02/18 14:32 Alkaline Phosphatase 107 U/L (38-126) 04/02/18 14:32 Lactate Dehydrogenase 541 U/L (313-618) 04/02/18 14:32 Total Protein 7.1 g/dL (6.3-8.2) 04/02/18 14:32 Albumin 4.2 g/dL (3.5-5.0) 04/02/18 14:32 Globulin 2.9 g/dL (1.7-4.1) 04/02/18 14:32 Albumin/Globulin Ratio 1.4 (1.0-2.8) 04/02/18 14:32 - Imaging Additional studies: Procedures Incision with removal of foreign body or device from skin and subcutaneous tissue (12/02/14) Insertion of totally implantable vascular access device [VAD] (02/03/14) Assessment and Plan (1) Diffuse large B-cell lymphoma Current visit: No Status: Acute This is an 82-year-old man with a history of diffuse large B-cell lymphoma involving the leg. He is about 4 years out from the end of his therapy. He now has biopsy-proven recurrence in the left ankle. Will get him scheduled for a PET-CT to evaluate if there is any other evidence of disease. I think given his recent cardiac history, further answer psych leads would be contraindicated in his case. I think he would potentially tolerate Treanda and Rituxan better. This has a reasonably good response rate in relapse diffuse large B-cell lymphoma but is unlikely to be curative. Side effects including alopecia nausea vomiting myelosuppression risk for infection fatigue reviewed with the patient and he is willing to proceed. We will plan on having a Port-A-Cath placed. If he has extensive disease, we will plan on treating for 6 cycles. If on the other hand, he has localized disease, we could potentially treat for shorter course of chemotherapy and then can consider radiation. Given the extent of his vascular disease and prior radiation however this may not be an option. 40 minutes was spent with the patient and his , the majority in counseling.
--- NOTE | 2018-09-15 16:12 | PC.NURSE ---
Addendum entered by Sandra Odell R.N. 09/24/18 09:13: Spoke with CASING BLOWER, [place] at cloth baler office. Per NO pt was referred to [facility] for a consultation for a CFEA left to right or fem-fem procedure. Notified pt of procedure name and verbalized this technical publications writer's unfamiliarity with vascular procedure's but encouraged pt to speak to Dr. Levin about it at next appointment. Pr verbalized understanding states , thank you, I will. Will also place note in Dr. Levin's box. Addendum entered by Sandra Odell R.N. 09/22/18 15:39: This technical publications writer again contacted [facility] office and left message for CASING BLOWER to contact this clinic, awaiting response. Called pt and left message to return call to [facility]. Addendum entered by Sandra Odell R.N. 09/18/18 16:53: Per Dr. Levin anything to improve blood flow is good. Attempted to contact Dr. Restrepo's office again to gain a more clear idea of pt's recommended procedure at [facility], was given cell number to contact Dr. Restrepo directly; message left . Spoke with pt to update them on status, encouraged pt to call cloth baler office and request to speak with provider and get a clear understanding of [facility]'s recommendation, pt verbalized understanding and states Okay, thank you, I will. Pt's called this clinic again after contacting cloth baler's office and left message with front clerk for this technical publications writer to contact [facility] [facility]OWER on Saturday and she will know the plan. Original Note: Pt explained that he recently had appt with his cloth baler. Per pt, his cloth baler wants me to have a procedure in my left leg, down at [facility]. Pt expresses concern that's where my cancer is. Pt would like direction from Dr. Levin to clarify if the procedure would be okay or if he should begin his scheduled chemo first. This technical publications writer called Dr. Restrepo's office (pt's cloth baler) attempting to gather more information on specific procedure that was being ordered, pt unable to remember Oh I don't know what it was called, they just told me I needed it. Spoke with Dr. Restrepo's office and staff was unable to provided exact procedure name, only able to identify that a referral to [facility] has been placed. Obtained Dr. Restrepo's pager number in order to facilitate a provider to provider conversation. Will place note in Dr. Levin's box.
[2018-09-24 08:49] LABS: Add Manual Diff / Slide Review NO; Basophils Absolute Auto 0 /uL (0-100); Basophils Percent Auto 0.7 % (0-2); Eosinophils Absolute Auto 200 /uL (0-450); Eosinophils Percent Auto 4.1 % (2-4); Hematocrit 38.3 % (41-53); Hemoglobin 12.7 g/dL (13.5-17.5); Lymphocytes Absolute Auto 1700 /uL (1100-4500); Lymphocytes Percent Auto 31.7 % (25-40); Mean Corpuscular HGB Conc 33.2 % (30-36); Mean Corpuscular Hemoglobin 32.7 PG (26-34); Mean Corpuscular Volume 98.3 fL (80-100); Monocytes Absolute Auto 500 /uL (0-900); Monocytes Percent Auto 9.4 % (3-14); Neutrophils Absolute Auto 2800 /uL (1500-7000); Neutrophils Percent Auto 54.1 % (50-75); Platelet Count 194 X10^3/uL (150-400); Red Cell Distribution Width 13.5 % (11.6-14.8); White Blood Cell Count 5.2 X10^3/uL (4.5-11.0)
[2018-09-24 08:59] LABS: Alanine Aminotransferase 38 IU/L (21-72); Albumin 3.8 g/dL (3.5-5.0); Albumin Globulin Ratio 1.3 (1.0-2.8); Alkaline Phosphatase 109 U/L (38-126); Aspartate Aminotransferase 29 IU/L (17-59); Bilirubin Total 0.5 mg/dL (0.2-1.3); Blood Urea Nitrogen 23 mg/dL (9-20); Calcium 9.3 mg/dL (8.4-10.2); Carbon Dioxide 25 mmol/L (22-32); Chloride 104 mmol/L (98-107); Estimated Glomerular Filt Rate > 60.0 mL/min (>60); Globulin 2.9 g/dL (1.7-4.1); Glucose 115 mg/dL (80-110); HEMOLYSIS < 15 (0-50); Potassium 4.3 mmol/L (3.4-5.1); Sodium 138 mmol/L (137-145); Total Protein 6.7 g/dL (6.3-8.2)
[2018-09-24 09:11] VITALS: BP 128/66; PULSE 66; RESP 18; TEMP 37; O2SAT 96
--- NOTE | 2018-09-24 09:34 | P.PNONC_ITS ---
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 Four cycles of R-CHOP. 2. Involved field radiation finishing in June 2014. Interval history: The patient is an 82-year-old man with a history of diffuse large B-cell lymphoma involving his left leg. He now has recurrence in the ankle. Since his last visit, he has noted worsening pain in the left ankle and calf. He has been using Tylenol and 1 Percocet a day. He finds that the Percocet is helpful but has been causing constipation. He denies any fevers chills or sweats. He has not noted any other aches or pains. He has not noted any adenopathy. He has been having home health put dressings on his legs. He has had some increasing edema. He also has had a recent cardiac monitoring with some abnormalities found. He has a follow-up appointment pending with a stamping operator. He also is being evaluated for possible revascularization with a endarterectomy on the left leg although there has not been any specific timing yet. His appetite has been fair. No nausea or vomiting. He has had some constipation but denies any other GI complaints. He is ready to begin his chemotherapy today. His medications include amlodipine vitamin C aspirin a glipizide hydrochlorothiazide lisinopril metformin metoprolol and simvastatin. His past medical history is notable for coronary artery disease. He has had a prior stent placement. He also has peripheral vascular disease. He does have a history of diabetes hypertension and hyperlipidemia. - Patient Self-Reported Symptoms SR Constitution: Fatigue/Malaise SR eye issues: Vision changes SR respiratory issues: Shortness of breath SR Skin issues: Skin rash or itching SR Musculoskeletal issues: Joint pain or swelling SR Neuro issues: Numbness or tingling, Difficulty balancing Home Medications and Allergies Home Medications Medication Instructions Recorded Confirmed Type aspirin 81 mg PO DAILY #0 11/08/10 09/24/18 History ioxumuwz-ecd-NH-lycopen-lutein 1 tab PO DAILY #0 11/09/10 09/24/18 History [Centrum Silver] ascorbic acid (vitamin C) 500 mg PO DAILY #0 05/18/16 09/24/18 History amlodipine [Norvasc] 5 mg PO DAILY 05/12/18 09/24/18 History atorvastatin 40 mg PO DAILY 05/12/18 09/24/18 History isosorbide mononitrate 30 mg PO DAILY 05/12/18 09/24/18 History glipizide 5 mg tablet 2.5 mg PO BID tab 05/23/18 09/24/18 History lisinopril 10 mg tablet 10 mg PO DAILY 05/23/18 09/24/18 History metoprolol tartrate 75 mg tablet 75 mg PO BID 05/23/18 09/24/18 History ticagrelor 90 mg tablet 90 mg PO BID 05/23/18 09/03/18 History metformin 500 mg tablet 500 mg PO BID #180 tab 08/12/18 09/24/18 Rx acyclovir 400 mg PO BID #60 tab 09/03/18 09/24/18 Rx magnesium oxide 400 mg PO BID 09/03/18 09/24/18 History ondansetron HCl 8 mg PO Q8H PRN #30 tab 09/03/18 Rx Allergies Allergy/AdvReac Type Severity Reaction Status Date / Time codeine [CODEINE] Allergy Unknown EYES RED, Verified 06/20/18 16:38 PUFF UP Exam Vital signs: Vital Signs Temp Pulse Resp BP Pulse Ox 09/24/18 09:11 98.6 F 66 18 128/66 96 Intake and Output 09/23/18 09/24/18 09/24/18 23:59 07:59 15:59 Other: Weight 70.8 kg Patient Weight 09/24/18 23:59 Weight 70.8 kg - Constitutional positive no acute distress, positive average body habitus Comments: He is in a wheelchair. - Routine HEENT Exam Head: Present: normocephalic, atraumatic Eye: Present: EOMI, PERRL. Absent: conjunctival icterus ENT: Present: mucous membranes moist, oropharynx clear - Routine Neck Exam Present: supple. Absent: lymphadenopathy - Routine Respiratory Exam Present: Clear to auscultation bilaterally. Absent: rales, wheezes - Routine Cardiovascular Exam Present: RRR, S1, S2 - Routine Abdominal Exam Present: soft, normoactive bowel sounds. Absent: tenderness - Routine Extremities Exam Present: edema Comments: He has 2+ lower extremity edema on the left and trace edema on the right. He has an ulcer on the medial left ankle with some nodular areas superior. It is somewhat tender to palpation. - Routine Neurological Exam Present: alert, oriented X3 - Routine Psychiatric Exam Present: normal affect, normal thought process Results - Labs Laboratory Last Values WBC 5.2 X10^3/uL (4.5-11.0) 09/24/18 08:35 RBC 3.90 X10^6/uL (4.5-5.9) L 09/24/18 08:35 Hgb 12.7 g/dL (13.5-17.5) L 09/24/18 08:35 Hct 38.3 % (41-53) L 09/24/18 08:35 MCV 98.3 fL (80-100) 09/24/18 08:35 MCH 32.7 PG (26-34) 09/24/18 08:35 MCHC 33.2 % (30-36) 09/24/18 08:35 RDW 13.5 % (11.6-14.8) 09/24/18 08:35 Plt Count 194 X10^3/uL (150-400) 09/24/18 08:35 Neut % (Auto) 54.1 % (50-75) 09/24/18 08:35 Lymph % (Auto) 31.7 % (25-40) 09/24/18 08:35 [place] % (Auto) 9.4 % (3-14) 09/24/18 08:35 Eos % (Auto) 4.1 % (2-4) H 09/24/18 08:35 Baso % (Auto) 0.7 % (0-2) 09/24/18 08:35 Neut # (Auto) 2800 /uL (3180-8999) 09/24/18 08:35 Lymph # (Auto) 1700 /uL (0203-5820) 09/24/18 08:35 [place] # (Auto) 500 /uL (0-900) 09/24/18 08:35 Eos # (Auto) 200 /uL (0-450) 09/24/18 08:35 Baso # (Auto) 0 /uL (0-100) 09/24/18 08:35 Sodium 138 mmol/L (137-145) 09/24/18 08:35 Potassium 4.3 mmol/L (3.4-5.1) 09/24/18 08:35 Chloride 104 mmol/L (98-107) 09/24/18 08:35 Carbon Dioxide 25 mmol/L (22-32) 09/24/18 08:35 BUN 23 mg/dL (9-20) H 09/24/18 08:35 Creatinine 1.00 mg/dL (0.66-1.25) 09/24/18 08:35 Estimated GFR > 60.0 mL/min (>60) 09/24/18 08:35 BUN/Creatinine Ratio 23.0 (6-22) H 09/24/18 08:35 Glucose 115 mg/dL (80-110) H 09/24/18 08:35 Calcium 9.3 mg/dL (8.4-10.2) 09/24/18 08:35 Total Bilirubin 0.5 mg/dL (0.2-1.3) 09/24/18 08:35 AST 29 IU/L (17-59) 09/24/18 08:35 ALT 38 IU/L (21-72) 09/24/18 08:35 Alkaline Phosphatase 109 U/L (38-126) 09/24/18 08:35 Lactate Dehydrogenase 541 U/L (313-618) 04/02/18 14:32 Total Protein 6.7 g/dL (6.3-8.2) 09/24/18 08:35 Albumin 3.8 g/dL (3.5-5.0) 09/24/18 08:35 Globulin 2.9 g/dL (1.7-4.1) 09/24/18 08:35 Albumin/Globulin Ratio 1.3 (1.0-2.8) 09/24/18 08:35 - Imaging Additional studies: Procedures Incision with removal of foreign body or device from skin and subcutaneous tissue (12/02/14) Insertion of totally implantable vascular access device [VAD] (02/03/14) Assessment and Plan (1) Diffuse large B-cell lymphoma Current visit: No Status: Acute This is an 82-year-old man with a history of diffuse large B-cell lymphoma involving the leg. He is about 4 years out from the end of his therapy. He now has biopsy-proven recurrence in the left ankle. His PET scan does not show any disease elsewhere. He will start on chemotherapy with Treanda and Rituxan today. Return to clinic in about 4 weeks for follow-up. Hopefully, he will have a good response to treatment. Given his prior history of radiation and vascular insufficiency I think additional radiation would be quite risky. He will continue with the Percocet as needed for pain. I did advise him to take some laxatives along with the to prevent constipation.
[2018-09-24] MEDS: SODIUM CHLORIDE 0.9% 100 ML 21 ML IV (10:11)
[2018-09-24] MEDS: ACETAMINOPHEN 325 MG TABLET 650 MG PO (10:11)
[2018-09-24] MEDS: HYDROCORTISONE 100 MG/2 ML VIAL IV (10:11)
[2018-09-24] MEDS: diphenhydrAMINE 25 MG TABLET PO (10:11)
[2018-09-24] MEDS: DEXAMETHASONE 12 MG in SODIUM CHLORIDE 0.9% 50 ML 212 ML IV (10:26)
[2018-09-24] MEDS: ONDANSETRON 16 MG in SODIUM CHLORIDE 0.9% 50 ML 232 ML IV (10:46)
[2018-09-24] MEDS: RITUXIMAB IV (11:12)
[2018-09-24] MEDS: NORMAL SALINE IV ×2 (11:12→15:32)
[2018-09-24] MEDS: LORazepam 0.5 MG TABLET PO (13:05)
--- NOTE | 2018-09-24 14:09 | PC.NURSE ---
Tolerating Rituxan well so far. Only c/o is itchiness at tumor site on his left lower leg. Will continue to monitor. Vitals remain stable. No distress observed.
[2018-09-24] MEDS: BENDAMUSTINE IV (15:32)
[2018-09-25 10:36] VITALS: BP 119/58; PULSE 91; RESP 18; TEMP 36.8; O2SAT 100
[2018-09-25] MEDS: LORazepam 0.5 MG TABLET PO (10:39)
[2018-09-25] MEDS: DEXAMETHASONE 12 MG in SODIUM CHLORIDE 0.9% 50 ML 212 ML IV (10:39)
[2018-09-25] MEDS: ONDANSETRON 16 MG in SODIUM CHLORIDE 0.9% 50 ML 232 ML IV (11:25)
[2018-09-25] MEDS: BENDAMUSTINE IV (12:16)
[2018-09-25] MEDS: NORMAL SALINE IV (12:16)
[2018-09-25] MEDS: SODIUM CHLORIDE 0.9% 100 ML 21 ML IV (12:32)
--- NOTE | 2018-10-16 17:10 | PC.NURSE ---
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 stated the her son gisella is deaf but can read lips will come by to picked edge sewing machine operator.
[2018-10-22 10:15] LABS: Add Manual Diff / Slide Review NO; Basophils Absolute Auto 0 /uL (0-100); Basophils Percent Auto 0.7 % (0-2); Eosinophils Absolute Auto 100 /uL (0-450); Eosinophils Percent Auto 2.2 % (2-4); Hematocrit 37.9 % (41-53); Hemoglobin 12.4 g/dL (13.5-17.5); Lymphocytes Absolute Auto 300 /uL (1100-4500); Lymphocytes Percent Auto 5.3 % (25-40); Mean Corpuscular HGB Conc 32.8 % (30-36); Mean Corpuscular Hemoglobin 31.8 PG (26-34); Mean Corpuscular Volume 97.2 fL (80-100); Monocytes Absolute Auto 700 /uL (0-900); Monocytes Percent Auto 12.3 % (3-14); Neutrophils Absolute Auto 4800 /uL (1500-7000); Neutrophils Percent Auto 79.5 % (50-75); Platelet Count 150 X10^3/uL (150-400)
[2018-10-22 10:16] VITALS: BP 103/60; PULSE 70; RESP 18; TEMP 36.6; O2SAT 99
[2018-10-22 10:21] LABS: Alanine Aminotransferase 34 IU/L (21-72); Albumin 3.6 g/dL (3.5-5.0); Albumin Globulin Ratio 1.3 (1.0-2.8); Alkaline Phosphatase 120 U/L (38-126); Aspartate Aminotransferase 23 IU/L (17-59); BUN Creatinine Ratio 27.8 (6-22); Bilirubin Total 0.6 mg/dL (0.2-1.3); Blood Urea Nitrogen 25 mg/dL (9-20); Calcium 8.9 mg/dL (8.4-10.2); Carbon Dioxide 24 mmol/L (22-32); Chloride 105 mmol/L (98-107); Estimated Glomerular Filt Rate > 60.0 mL/min (>60); Globulin 2.8 g/dL (1.7-4.1); Glucose 261 mg/dL (80-110); HEMOLYSIS < 15 (0-50); Potassium 4.4 mmol/L (3.4-5.1); Sodium 138 mmol/L (137-145); Total Protein 6.4 g/dL (6.3-8.2)
--- NOTE | 2018-10-22 10:36 | ONC.PN ---
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 Four cycles of R-CHOP. 2. Involved field radiation finishing in June 2014. 3. Relapse disease treated with 1 cycle of Treanda and Rituxan thus far, beginning September 2018 Interval history: The patient is an 82-year-old man with a history of diffuse large B-cell lymphoma involving his left leg. He now has recurrence in the ankle. Since his last visit, he started on his chemotherapy 4 weeks ago. He tolerated the 1st cycle without any significant difficulty. He did not have any infusion reaction. No fevers or chills. His appetite has been fair. Over the last few days, he has noted some increased fatigue. He notes that the pain in his left leg has diminished as has the edema. He still has some pain with walking any significant difficulty in both legs. No fevers chills or sweats. He has not noted any new adenopathy. No GI complaints. He denies any other changes in his health. He has been seen by vascular surgeons. He anticipate a follow-up at [facility] after his 2nd cycle of therapy to see what additional procedures may be available for his peripheral vascular disease. His medications include amlodipine vitamin C aspirin a glipizide hydrochlorothiazide lisinopril metformin metoprolol and simvastatin. His past medical history is notable for coronary artery disease. He has had a prior stent placement. He also has peripheral vascular disease. He does have a history of diabetes hypertension and hyperlipidemia. - Patient Self-Reported Symptoms SR Constitution: Weight loss/gain, Fatigue/Malaise SR eye issues: Vision changes SR respiratory issues: Shortness of breath SR Skin issues: Skin rash or itching SR Musculoskeletal issues: Muscle weakness, Difficulty walking SR Neuro issues: Numbness or tingling, Difficulty balancing Home Medications and Allergies Home Medications Medication Instructions Recorded Confirmed Type aspirin 81 mg PO DAILY #0 11/08/10 10/05/18 History rsyrtaxj-zss-JH-lycopen-lutein 1 tab PO DAILY #0 11/09/10 10/05/18 History [Centrum Silver] ascorbic acid (vitamin C) 500 mg PO DAILY #0 05/18/16 10/05/18 History amlodipine [Norvasc] 5 mg PO DAILY 05/12/18 10/05/18 History atorvastatin 40 mg PO DAILY 05/12/18 10/05/18 History glipizide 5 mg tablet 2.5 mg PO BID tab 05/23/18 10/05/18 History lisinopril 10 mg tablet 10 mg PO DAILY 05/23/18 10/05/18 History metoprolol tartrate 75 mg tablet 75 mg PO BID 05/23/18 10/05/18 History ticagrelor 90 mg tablet 90 mg PO BID 05/23/18 10/05/18 History metformin 500 mg tablet 500 mg PO BID #180 tab 08/12/18 10/05/18 Rx magnesium oxide 400 mg PO BID 09/03/18 10/05/18 History gabapentin 300 mg capsule 300 mg PO BEDTIME #30 cap 09/26/18 10/05/18 Rx isosorbide mononitrate ER 30 mg 30 mg PO DAILY #30 tab 09/26/18 10/05/18 Rx tablet,extended release 24 hr oxycodone-acetaminophen 1 tab PO Q4-6H PRN #40 tab 10/16/18 Rx Allergies Allergy/AdvReac Type Severity Reaction Status Date / Time codeine [CODEINE] Allergy Unknown EYES RED, Verified 10/05/18 12:47 PUFF UP Exam Vital signs: Vital Signs Temp Pulse Resp BP Pulse Ox 10/22/18 10:16 97.8 F 70 18 103/60 99 Intake and Output 10/21/18 10/22/18 10/22/18 23:59 07:59 15:59 Other: Weight 66 kg Patient Weight 10/22/18 23:59 Weight 66 kg - Constitutional positive no acute distress, positive average body habitus Comments: He is in a wheelchair. - Routine HEENT Exam Head: Present: normocephalic, atraumatic Eye: Present: EOMI, PERRL. Absent: conjunctival icterus, scleral injection ENT: Present: mucous membranes moist, oropharynx clear - Routine Neck Exam Present: supple. Absent: lymphadenopathy, thyromegaly - Routine Respiratory Exam Present: Clear to auscultation bilaterally. Absent: rales, wheezes - Routine Cardiovascular Exam Present: RRR, S1, S2. Absent: murmur - Routine Abdominal Exam Present: soft, normoactive bowel sounds. Absent: tenderness, organomegaly, mass - Routine Extremities Exam Comments: He has 1 to 2+ lower extremity edema. It has diminished compared to what he would was before. He still has not ulcerated area on the left medial ankle. The nodularity seems to have diminished somewhat. - Routine Neurological Exam Present: alert, oriented X3 - Routine Psychiatric Exam Present: normal affect, normal thought process Results - Labs Laboratory Last Values WBC 6.0 X10^3/uL (4.5-11.0) 10/22/18 10:00 RBC 3.90 X10^6/uL (4.5-5.9) L 10/22/18 10:00 Hgb 12.4 g/dL (13.5-17.5) L 10/22/18 10:00 Hct 37.9 % (41-53) L 10/22/18 10:00 MCV 97.2 fL (80-100) 10/22/18 10:00 MCH 31.8 PG (26-34) 10/22/18 10:00 MCHC 32.8 % (30-36) 10/22/18 10:00 RDW 13.0 % (11.6-14.8) 10/22/18 10:00 Plt Count 150 X10^3/uL (150-400) 10/22/18 10:00 Neut % (Auto) 79.5 % (50-75) H 10/22/18 10:00 Lymph % (Auto) 5.3 % (25-40) L 10/22/18 10:00 [place] % (Auto) 12.3 % (3-14) 10/22/18 10:00 Eos % (Auto) 2.2 % (2-4) 10/22/18 10:00 Baso % (Auto) 0.7 % (0-2) 10/22/18 10:00 Neut # (Auto) 4800 /uL (6194-0272) 10/22/18 10:00 Lymph # (Auto) 300 /uL (6680-1752) L 10/22/18 10:00 [place] # (Auto) 700 /uL (0-900) 10/22/18 10:00 Eos # (Auto) 100 /uL (0-450) 10/22/18 10:00 Baso # (Auto) 0 /uL (0-100) 10/22/18 10:00 Sodium 138 mmol/L (137-145) 10/22/18 10:00 Potassium 4.4 mmol/L (3.4-5.1) 10/22/18 10:00 Chloride 105 mmol/L (98-107) 10/22/18 10:00 Carbon Dioxide 24 mmol/L (22-32) 10/22/18 10:00 BUN 25 mg/dL (9-20) H 10/22/18 10:00 Creatinine 0.90 mg/dL (0.66-1.25) 10/22/18 10:00 Estimated GFR > 60.0 mL/min (>60) 10/22/18 10:00 BUN/Creatinine Ratio 27.8 (6-22) H 10/22/18 10:00 Glucose 261 mg/dL (80-110) H 10/22/18 10:00 Calcium 8.9 mg/dL (8.4-10.2) 10/22/18 10:00 Total Bilirubin 0.6 mg/dL (0.2-1.3) 10/22/18 10:00 AST 23 IU/L (17-59) 10/22/18 10:00 ALT 34 IU/L (21-72) 10/22/18 10:00 Alkaline Phosphatase 120 U/L (38-126) 10/22/18 10:00 Lactate Dehydrogenase 541 U/L (313-618) 04/02/18 14:32 Total Protein 6.4 g/dL (6.3-8.2) 10/22/18 10:00 Albumin 3.6 g/dL (3.5-5.0) 10/22/18 10:00 Globulin 2.8 g/dL (1.7-4.1) 10/22/18 10:00 Albumin/Globulin Ratio 1.3 (1.0-2.8) 10/22/18 10:00 - Imaging Additional studies: Procedures Incision with removal of foreign body or device from skin and subcutaneous tissue (12/02/14) Insertion of totally implantable vascular access device [VAD] (02/03/14) Assessment and Plan (1) Diffuse large B-cell lymphoma Current visit: No Status: Acute This is an 82-year-old man with a history of diffuse large B-cell lymphoma involving the leg. He has a localized recurrence at the ankle. He has completed his 1st cycle of chemotherapy reasonably well. His blood counts are adequate. We will go ahead with his 2nd cycle today. He will return to clinic in about 4 weeks for follow-up. He will be due for a PET-CT around that time to assess response.
[2018-10-22] MEDS: SODIUM CHLORIDE 0.9% 100 ML 21 ML IV (11:03)
[2018-10-22] MEDS: ACETAMINOPHEN 325 MG TABLET 650 MG PO (11:04)
[2018-10-22] MEDS: HYDROCORTISONE 100 MG/2 ML VIAL IV (11:04)
[2018-10-22] MEDS: diphenhydrAMINE 25 MG TABLET PO (11:05)
[2018-10-22] MEDS: LORazepam 0.5 MG TABLET PO (11:18)
[2018-10-22] MEDS: ONDANSETRON 16 MG in SODIUM CHLORIDE 0.9% 50 ML 232 ML IV (11:30)
[2018-10-22] MEDS: RITUXIMAB IV (12:31)
[2018-10-22] MEDS: NORMAL SALINE IV ×2 (12:31→15:47)
[2018-10-22] MEDS: BENDAMUSTINE IV (15:47)
[2018-10-23] MEDS: SODIUM CHLORIDE 0.9% 100 ML 21 ML IV (10:46)
[2018-10-23 10:48] VITALS: BP 117/53; PULSE 81; RESP 14; TEMP 36.7; O2SAT 96
[2018-10-23] MEDS: ONDANSETRON 16 MG in SODIUM CHLORIDE 0.9% 50 ML 232 ML IV (11:25)
--- NOTE | 2018-10-23 11:31 | PC.NURSE ---
Patient very sleepy. Arouses to light touch and voice. Ativan PO held at this time.
[2018-10-23] MEDS: BENDAMUSTINE IV (11:59)
[2018-10-23] MEDS: NORMAL SALINE IV (11:59)
[2018-10-29 14:51] VITALS: BP 97/51; PULSE 74; RESP 16; TEMP 36.4; O2SAT 97
[2018-10-29 15:09] LABS: Add Manual Diff / Slide Review NO; Basophils Absolute Auto 0 /uL (0-100); Basophils Percent Auto 0.2 % (0-2); Eosinophils Absolute Auto 100 /uL (0-450); Hematocrit 34.1 % (41-53); Hemoglobin 11.8 g/dL (13.5-17.5); Lymphocytes Absolute Auto 300 /uL (1100-4500); Lymphocytes Percent Auto 9.1 % (25-40); Mean Corpuscular HGB Conc 34.6 % (30-36); Mean Corpuscular Hemoglobin 32.9 PG (26-34); Monocytes Absolute Auto 500 /uL (0-900); Neutrophils Absolute Auto 2900 /uL (1500-7000); Neutrophils Percent Auto 75.7 % (50-75); Platelet Count 136 X10^3/uL (150-400); Red Blood Cell Count 3.58 X10^6/uL (4.5-5.9); Red Cell Distribution Width 13.3 % (11.6-14.8); White Blood Cell Count 3.8 X10^3/uL (4.5-11.0)
[2018-10-29 15:10] LABS: Alanine Aminotransferase 29 IU/L (21-72); Albumin 3.2 g/dL (3.5-5.0); Albumin Globulin Ratio 1.2 (1.0-2.8); Alkaline Phosphatase 109 U/L (38-126); Aspartate Aminotransferase 26 IU/L (17-59); BUN Creatinine Ratio 28.9 (6-22); Bilirubin Total 0.7 mg/dL (0.2-1.3); Blood Urea Nitrogen 26 mg/dL (9-20); Calcium 8.5 mg/dL (8.4-10.2); Carbon Dioxide 23 mmol/L (22-32); Chloride 106 mmol/L (98-107); Estimated Glomerular Filt Rate > 60.0 mL/min (>60); Globulin 2.6 g/dL (1.7-4.1); Glucose 131 mg/dL (80-110); HEMOLYSIS < 15 (0-50); Potassium 3.8 mmol/L (3.4-5.1); Sodium 140 mmol/L (137-145); Total Protein 5.8 g/dL (6.3-8.2)
[2018-10-29] MEDS: SODIUM CHLORIDE 0.9% 1,000 ML 1000 ML IV (15:27)
--- NOTE | 2018-10-29 15:28 | PC.NURSE ---
Pt came in for lab draw, c/o fatigue, intermittent diarrhea, pt also had low BP of 97/51. Triage nurse notified, physician ordered 1L fluids.
[2018-10-29 16:23] VITALS: BP 132/53; PULSE 80; RESP 16; TEMP 36.4; O2SAT 98
[2018-11-19 08:49] LABS: Add Manual Diff / Slide Review NO; Basophils Absolute Auto 0 /uL (0-100); Basophils Percent Auto 0.7 % (0-2); Eosinophils Absolute Auto 100 /uL (0-450); Eosinophils Percent Auto 2.1 % (2-4); Hematocrit 31.2 % (41-53); Hemoglobin 10.5 g/dL (13.5-17.5); Lymphocytes Absolute Auto 2900 /uL (1100-4500); Mean Corpuscular HGB Conc 33.7 % (30-36); Mean Corpuscular Hemoglobin 32.5 PG (26-34); Mean Corpuscular Volume 96.6 fL (80-100); Monocytes Absolute Auto 1100 /uL (0-900); Monocytes Percent Auto 16.4 % (3-14); Neutrophils Absolute Auto 2400 /uL (1500-7000); Neutrophils Percent Auto 36.8 % (50-75); Platelet Count 170 X10^3/uL (150-400); Red Blood Cell Count 3.23 X10^6/uL (4.5-5.9); Red Cell Distribution Width 14.9 % (11.6-14.8); White Blood Cell Count 6.6 X10^3/uL (4.5-11.0)
[2018-11-19 08:56] VITALS: BP 113/60; PULSE 75; RESP 20; TEMP 36.4; O2SAT 95
[2018-11-19 09:00] LABS: Alanine Aminotransferase 31 IU/L (21-72); Albumin 3.2 g/dL (3.5-5.0); Albumin Globulin Ratio 1.1 (1.0-2.8); Alkaline Phosphatase 143 U/L (38-126); Aspartate Aminotransferase 25 IU/L (17-59); Bilirubin Total 0.7 mg/dL (0.2-1.3); Blood Urea Nitrogen 21 mg/dL (9-20); Calcium 8.8 mg/dL (8.4-10.2); Carbon Dioxide 25 mmol/L (22-32); Chloride 104 mmol/L (98-107); Estimated Glomerular Filt Rate > 60.0 mL/min (>60); Globulin 2.9 g/dL (1.7-4.1); Glucose 135 mg/dL (80-110); HEMOLYSIS < 15 (0-50); Potassium 4.5 mmol/L (3.4-5.1); Sodium 137 mmol/L (137-145); Total Protein 6.1 g/dL (6.3-8.2)
--- NOTE | 2018-11-19 09:17 | P.PNONC_ITS ---
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 Four cycles of R-CHOP. 2. Involved field radiation finishing in June 2014. 3. Relapse disease treated with 2 cycles of Treanda and Rituxan thus far, beginning September 2018 Interval history: The patient is an 82-year-old man with a history of diffuse large B-cell lymphoma involving his left leg. He now has recurrence in the ankle. Since his last visit, he has had his 2nd cycle of chemotherapy. He has tolerated it f airly well. He has noted some fatigue and decreased appetite. He has not had any nausea or vomiting. No fevers or chills. No shortness of breath or cough. He has not noticed much middle ulcer. He says that the visiting nurse thinks it might be a little bit smaller. The swelling has increased though and it has been weeping. The pain has been getting worse as well. He has been using Percocet. He has been taking 1 pill about every 4 hours and is not getting adequate pain relief. The pain is keeping him up at night. He denies any new aches or pains. He denies any other changes in his health. His medications include amlodipine vitamin C aspirin a glipizide hydrochlorothiazide lisinopril metformin metoprolol and simvastatin. His past medical history is notable for coronary artery disease. He has had a prior stent placement. He also has peripheral vascular disease. He does have a history of diabetes hypertension and hyperlipidemia. - Patient Self-Reported Symptoms SR Constitution: Weight loss/gain, Fatigue/Malaise SR eye issues: Vision changes SR respiratory issues: Shortness of breath SR Skin issues: Skin rash or itching SR Musculoskeletal issues: Muscle weakness, Difficulty walking SR Neuro issues: Numbness or tingling, Difficulty balancing Home Medications and Allergies Home Medications Medication Instructions Recorded Confirmed Type aspirin 81 mg PO DAILY #0 11/08/10 10/05/18 History iqvwdsts-rkn-LO-lycopen-lutein 1 tab PO DAILY #0 11/09/10 10/05/18 History [Centrum Silver] ascorbic acid (vitamin C) 500 mg PO DAILY #0 05/18/16 10/05/18 History amlodipine [Norvasc] 5 mg PO DAILY 05/12/18 10/05/18 History atorvastatin 40 mg PO DAILY 05/12/18 10/05/18 History lisinopril 10 mg tablet 10 mg PO DAILY 05/23/18 10/05/18 History metoprolol tartrate 75 mg tablet 75 mg PO BID 05/23/18 10/05/18 History ticagrelor 90 mg tablet 90 mg PO BID 05/23/18 10/05/18 History metformin 500 mg tablet 500 mg PO BID #180 tab 08/12/18 10/05/18 Rx magnesium oxide 400 mg PO BID 09/03/18 10/05/18 History gabapentin 300 mg capsule 300 mg PO BEDTIME #30 cap 09/26/18 10/05/18 Rx isosorbide mononitrate ER 30 mg 30 mg PO DAILY #30 tab 09/26/18 10/05/18 Rx tablet,extended release 24 hr glipizide 5 mg tablet 2.5 mg PO BID #90 tab 10/23/18 Rx lidocaine 4 % topical gel 1 applictn TOP QD-BID PRN #30 gram 11/10/18 Rx trazodone 50 mg tablet 50 mg PO BEDTIME #30 tab 11/10/18 Rx oxycodone-acetaminophen 1 tab PO Q4-6H PRN #40 tab 11/17/18 Rx morphine [MS Contin] 15 mg PO Q12H 30 Days #60 tab 11/19/18 Rx Allergies Allergy/AdvReac Type Severity Reaction Status Date / Time codeine [CODEINE] Allergy Unknown EYES RED, Verified 11/11/18 22:19 PUFF UP Exam Vital signs: Vital Signs Temp Pulse Resp BP Pulse Ox 11/19/18 08:56 97.6 F 75 20 113/60 95 Intake and Output 11/18/18 11/19/18 11/19/18 23:59 07:59 15:59 Other: Weight 66.7 kg Patient Weight 11/19/18 23:59 Weight 66.7 kg - Constitutional positive no acute distress, positive average body habitus Comments: He is in a wheelchair and chronically ill-appearing but in no acute distress. - Routine HEENT Exam Head: Present: normocephalic, atraumatic - Routine Neck Exam Present: supple. Absent: lymphadenopathy, thyromegaly - Routine Respiratory Exam Present: Clear to auscultation bilaterally. Absent: rales, wheezes - Routine Cardiovascular Exam Present: RRR, S1, S2. Absent: murmur - Routine Abdominal Exam Present: soft, normoactive bowel sounds. Absent: tenderness - Routine Extremities Exam Present: edema. Absent: cyanosis, clubbing Comments: He has 2+ lower extremity edema on the left. There is ongoing ulcerated area on the ankle. The nodular areas appear somewhat better. There is lot of weeping. - Routine Skin Exam Present: wounds. Absent: petechiae - Routine Neurological Exam Present: alert, oriented X3 - Routine Psychiatric Exam Present: normal affect, normal thought process Results - Labs Laboratory Last Values WBC 6.6 X10^3/uL (4.5-11.0) 11/19/18 08:35 RBC 3.23 X10^6/uL (4.5-5.9) L 11/19/18 08:35 Hgb 10.5 g/dL (13.5-17.5) L 11/19/18 08:35 Hct 31.2 % (41-53) L 11/19/18 08:35 MCV 96.6 fL (80-100) 11/19/18 08:35 MCH 32.5 PG (26-34) 11/19/18 08:35 MCHC 33.7 % (30-36) 11/19/18 08:35 RDW 14.9 % (11.6-14.8) H 11/19/18 08:35 Plt Count 170 X10^3/uL (150-400) 11/19/18 08:35 Neut % (Auto) 36.8 % (50-75) L 11/19/18 08:35 Lymph % (Auto) 44.0 % (25-40) H 11/19/18 08:35 [place] % (Auto) 16.4 % (3-14) H 11/19/18 08:35 Eos % (Auto) 2.1 % (2-4) 11/19/18 08:35 Baso % (Auto) 0.7 % (0-2) 11/19/18 08:35 Neut # (Auto) 2400 /uL (7694-0136) 11/19/18 08:35 Lymph # (Auto) 2900 /uL (8950-5211) 11/19/18 08:35 [place] # (Auto) 1100 /uL (0-900) H 11/19/18 08:35 Eos # (Auto) 100 /uL (0-450) 11/19/18 08:35 Baso # (Auto) 0 /uL (0-100) 11/19/18 08:35 Sodium 137 mmol/L (137-145) 11/19/18 08:35 Potassium 4.5 mmol/L (3.4-5.1) 11/19/18 08:35 Chloride 104 mmol/L (98-107) 11/19/18 08:35 Carbon Dioxide 25 mmol/L (22-32) 11/19/18 08:35 BUN 21 mg/dL (9-20) H 11/19/18 08:35 Creatinine 1.00 mg/dL (0.66-1.25) 11/19/18 08:35 Estimated GFR > 60.0 mL/min (>60) 11/19/18 08:35 BUN/Creatinine Ratio 21.0 (6-22) 11/19/18 08:35 Glucose 135 mg/dL (80-110) H 11/19/18 08:35 Calcium 8.8 mg/dL (8.4-10.2) 11/19/18 08:35 Total Bilirubin 0.7 mg/dL (0.2-1.3) 11/19/18 08:35 AST 25 IU/L (17-59) 11/19/18 08:35 ALT 31 IU/L (21-72) 11/19/18 08:35 Alkaline Phosphatase 143 U/L (38-126) H 11/19/18 08:35 Lactate Dehydrogenase 541 U/L (313-618) 04/02/18 14:32 Total Protein 6.1 g/dL (6.3-8.2) L 11/19/18 08:35 Albumin 3.2 g/dL (3.5-5.0) L 11/19/18 08:35 Globulin 2.9 g/dL (1.7-4.1) 11/19/18 08:35 Albumin/Globulin Ratio 1.1 (1.0-2.8) 11/19/18 08:35 - Imaging Additional studies: Procedures Incision with removal of foreign body or device from skin and subcutaneous tissue (12/02/14) Insertion of totally implantable vascular access device [VAD] (02/03/14) Assessment and Plan (1) Diffuse large B-cell lymphoma Current visit: No Status: Acute This is an 82-year-old man with a history of diffuse large B-cell lymphoma involving the leg. He has a localized recurrence at the ankle. He has completed his 2nd cycle of chemotherapy reasonably well. His blood counts are adequate. We will go ahead with his 3rd cycle today. It is difficult to tell if his lymphoma is responding to the treatment or not. The nodular areas appear better but the ulceration does not. Will get him scheduled for PET-CT to further evaluate. He will return to clinic here in about 4 weeks for follow-up.
[2018-11-19] MEDS: ACETAMINOPHEN 325 MG TABLET 650 MG PO (09:53)
[2018-11-19] MEDS: diphenhydrAMINE 25 MG TABLET PO (09:53)
[2018-11-19] MEDS: HYDROCORTISONE 100 MG/2 ML VIAL IV (09:55)
[2018-11-19] MEDS: SODIUM CHLORIDE 0.9% 100 ML 21 ML IV (09:55)
[2018-11-19] MEDS: ONDANSETRON 16 MG in SODIUM CHLORIDE 0.9% 50 ML 232 ML IV (10:20)
[2018-11-19] MEDS: RITUXIMAB IV (10:53)
[2018-11-19] MEDS: NORMAL SALINE IV ×2 (10:53→13:43)
--- NOTE | 2018-11-19 12:07 | PC.NURSE ---
Patient reporting pain in left ankle during infusion of 12/13. He last took percocet 5-325 at 0730. which he states has not been helping enough. Request to Dr. Levin made for an increase in pain med at home AND for percocet to be added to MAR at the increased dosage for patient to receive during infusion today.
[2018-11-19 12:08] LABS: Appearance Urine UA CLEAR; Bilirubin Urine UA NEGATIVE (NEGATIVE); Color Urine UA YELLOW; Glucose Urine UA NEGATIVE (Negative); Ketones Urine UA NEGATIVE (NEGATIVE); Leukocyte Esterase Urine UA NEGATIVE (NEGATIVE); Nitrite Urine UA NEGATIVE (Negative); Occult Blood Urine UA NEGATIVE (Negative); Protein Urine UA NEGATIVE (Negative); Urobilinogen Urine UA 0.2 E.U./dL (0.2)
[2018-11-19] MEDS: OXYCODONE/ACETAMINOPHEN 5/325 TABLET 2 TAB PO (13:07)
[2018-11-19] MEDS: BENDAMUSTINE IV (13:43)
[2018-11-20] MEDS: SODIUM CHLORIDE 0.9% 100 ML 21 ML IV (11:32)
[2018-11-20 11:34] VITALS: BP 112/50; PULSE 87; RESP 16; TEMP 36.3; O2SAT 94
[2018-11-20] MEDS: ONDANSETRON 16 MG in SODIUM CHLORIDE 0.9% 50 ML 232 ML IV (12:00)
[2018-11-20] MEDS: BENDAMUSTINE IV (12:24)
[2018-11-20] MEDS: NORMAL SALINE IV (12:24)
--- NOTE | 2018-11-24 13:42 | ONC.SCHED ---
Spoke with [facility] today and they were able to get his PET/CT scan authorized under an auth that has not yet. All info on that is in scanning.
--- NOTE | 2018-11-24 13:48 | PC.NURSE ---
Addendum entered by Mckenna Bailon R.N. 11/24/18 14:58: Per faxed response from Dr. Levin patient should take Keflex 500 mg QID x 10 days, he should also be scheduled for PET scan. This nurse called prescription in to [facility] pharmacy and then informed patient's son. Son Shahid stated that patient is scheduled for PET scan on 12/03. Addendum entered by Mckenna Bailon R.N. 11/24/18 14:02: This nurse called and spoke with son stating patient could take to percocet at a time per Dr. Lara and that I thierry put a message in to Dr. Levin re action on the wound. Original note faxed to Dr. Levin at [facility]. Original Note: Patient's son called reporting he and visiting nurse have noticed increasing drainage and bad odor, which was not present before, to the left ankle wound although the wound has shrunk from about 5cm to 3.5 cm. In addition patient is running a low grade temp of 99 and is experiencing severe pain at night (9/10) which is preventing him from sleeping, as well as 7/10 during day despite taking pain meds as ordered. Dr. Lara ordered patient can take 1-2 Percocet q4-6 hours. Request put in to Dr. Levin regarding action on signs of wound infection.
--- NOTE | 2018-12-11 12:25 | PC.NURSE ---
Patient was called after he had requested to hear results of his PET scan last Sat. THis nurse reported to his that Dr. Levin said to tell him that the results were better than he had expected and he will tell him in more detail at patient's next visit on 12/17.
--- NOTE | 2018-12-11 16:51 | PC.NURSE ---
PAIN: home health nurse Manda of [facility] called saying patient having severe pain despite using pain med as prescribed. 9/10 when standing and walking, unable to sleep much, no sedation. Wound dressing changes are very painful. Family called to picker packer prescription for new percocet dose written by Dr. Lara.
--- NOTE | 2018-12-15 15:59 | PC.NURSE ---
Home health nurse ILIR Rudolph, called today after being there for wound care stating she sent patient to ER suspecting infection of leg wound which had increased and black drainage and increased foul odor. He also had a blood pressure of 80/46 measured 3x.
[2018-12-17 09:25] LABS: Hematocrit 36.4 % (41-53); Hemoglobin 12.2 g/dL (13.5-17.5); Mean Corpuscular HGB Conc 33.5 % (30-36); Mean Corpuscular Hemoglobin 31.2 PG (26-34); Mean Corpuscular Volume 93.1 fL (80-100); Platelet Count 114 X10^3/uL (150-400); Red Blood Cell Count 3.91 X10^6/uL (4.5-5.9); Red Cell Distribution Width 16.9 % (11.6-14.8)
[2018-12-17 09:31] VITALS: BP 103/62; PULSE 68; RESP 22; TEMP 36.8; O2SAT 96
[2018-12-17 09:35] LABS: Add Manual Diff / Slide Review YES
[2018-12-17 09:37] LABS: Alanine Aminotransferase 32 IU/L (21-72); Albumin 2.6 g/dL (3.5-5.0); Alkaline Phosphatase 183 U/L (38-126); Aspartate Aminotransferase 33 IU/L (17-59); BUN Creatinine Ratio 22.9 (6-22); Bilirubin Total 0.9 mg/dL (0.2-1.3); Blood Urea Nitrogen 16 mg/dL (9-20); Calcium 8.4 mg/dL (8.4-10.2); Carbon Dioxide 27 mmol/L (22-32); Chloride 104 mmol/L (98-107); Estimated Glomerular Filt Rate > 60.0 mL/min (>60); Globulin 2.6 g/dL (1.7-4.1); Glucose 130 mg/dL (80-110); HEMOLYSIS < 15 (0-50); Sodium 137 mmol/L (137-145); Total Protein 5.2 g/dL (6.3-8.2)
--- NOTE | 2018-12-17 09:56 | ONC.PN ---
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 Four cycles of R-CHOP. 2. Involved field radiation finishing in June 2014. 3. Relapse disease treated with 3 cycles of Treanda and Rituxan thus far, beginning September 2018 Interval history: The patient is an 82-year-old man with a history of diffuse large B-cell lymphoma involving his left leg. He now has recurrence in the ankle. Since his last visit, he has had his 3nd cycle of chemotherapy. Over the last month, he has been bothered by some increasing pain in his left foot and ankle. He has been using MS Contin 15 mg twice a day with oxycodone for breakthrough which she has been using about every 4 hours. His appetite has been poor. He has lost about 15-20 lb over the last several months. He is not having any nausea or vomiting. He denies any fevers or chills. He was having some increasing weakness. He was seen in the emergency room and given a transfusion. He thinks that this might have helped a little bit. He has not noticed any adenopathy. He is having some pain in his right leg intermittently. There has been some intermittent swelling as well but it is not bothering him today. Which the ulcer on his left ankle has been roughly the same. He denies any other changes in his health. His medications include amlodipine vitamin C aspirin a glipizide hydrochlorothiazide lisinopril metformin metoprolol and simvastatin. His past medical history is notable for coronary artery disease. He has had a prior stent placement. He also has peripheral vascular disease. He does have a history of diabetes hypertension and hyperlipidemia. - Patient Self-Reported Symptoms SR Constitution: Weight loss/gain, Fatigue/Malaise SR eye issues: Vision changes SR respiratory issues: Shortness of breath SR Skin issues: Skin rash or itching SR Musculoskeletal issues: Muscle weakness, Difficulty walking SR Neuro issues: Numbness or tingling, Difficulty balancing Home Medications and Allergies Home Medications Medication Instructions Recorded Confirmed Type aspirin 81 mg PO DAILY #0 11/08/10 12/17/18 History Centrum Silver 1 tab PO DAILY #0 11/09/10 12/17/18 History atorvastatin 40 mg PO DAILY 05/12/18 12/17/18 History magnesium oxide 400 mg PO BID 09/03/18 12/17/18 History gabapentin 300 mg capsule 300 mg PO BEDTIME #30 cap 09/26/18 12/17/18 Rx isosorbide mononitrate ER 30 mg 30 mg PO DAILY #30 tab 09/26/18 12/17/18 Rx tablet,extended release 24 hr trazodone 50 mg tablet 50 mg PO BEDTIME #30 tab 11/10/18 12/17/18 Rx morphine [MS Contin] 15 mg PO Q12H 30 Days #60 tab 11/19/18 12/17/18 Rx oxycodone-acetaminophen [Percocet] 2 tab PO Q4-6H PRN #80 tab 11/26/18 12/17/18 Rx Brilinta 90 mg PO BID 12/15/18 12/17/18 History metoprolol tartrate 75 mg PO BID 12/15/18 12/17/18 History lisinopril 5 mg PO DAILY #30 tab 12/16/18 12/17/18 Rx morphine [MS Contin] 15 mg PO Q8H 30 Days #90 tab 12/17/18 Rx Allergies Allergy/AdvReac Type Severity Reaction Status Date / Time codeine [CODEINE] Allergy Unknown EYES RED, Verified 12/15/18 15:57 PUFF UP Exam Vital signs: Vital Signs Temp Pulse Resp BP Pulse Ox 12/17/18 09:31 98.2 F 68 22 103/62 96 Intake and Output 12/16/18 12/17/18 12/17/18 23:59 07:59 15:59 Other: Weight 60.8 kg Patient Weight 12/17/18 23:59 Weight 60.8 kg - Constitutional positive average body habitus, positive chronically ill appearing - Routine HEENT Exam Head: Present: normocephalic, atraumatic Eye: Absent: conjunctival icterus, scleral injection ENT: Present: mucous membranes moist, oropharynx clear - Routine Neck Exam Present: supple. Absent: lymphadenopathy, thyromegaly - Routine Respiratory Exam Present: Clear to auscultation bilaterally. Absent: rales, wheezes - Routine Cardiovascular Exam Present: RRR, S1, S2. Absent: murmur - Routine Abdominal Exam Present: soft, normoactive bowel sounds. Absent: tenderness, organomegaly, mass - Routine Extremities Exam Comments: He has bilateral lower extremity edema more so on the left than on the right. The ulcer on the left ankle is covered by a bandage that I did not take down. Results - Labs Laboratory Last Values WBC 6.0 X10^3/uL (4.5-11.0) 12/17/18 09:15 RBC 3.91 X10^6/uL (4.5-5.9) L 12/17/18 09:15 Hgb 12.2 g/dL (13.5-17.5) L 12/17/18 09:15 Hct 36.4 % (41-53) L 12/17/18 09:15 MCV 93.1 fL (80-100) 12/17/18 09:15 MCH 31.2 PG (26-34) 12/17/18 09:15 MCHC 33.5 % (30-36) 12/17/18 09:15 RDW 16.9 % (11.6-14.8) H 12/17/18 09:15 Plt Count 114 X10^3/uL (150-400) L 12/17/18 09:15 Neut % (Auto) Not Reportable 12/17/18 09:15 Lymph % (Auto) Not Reportable 12/17/18 09:15 [place]ois % (Auto) Not Reportable 12/17/18 09:15 Eos % (Auto) Not Reportable 12/17/18 09:15 Baso % (Auto) Not Reportable 12/17/18 09:15 Neut # (Auto) 2400 /uL (9130-5130) 11/19/18 08:35 Lymph # (Auto) Not Reportable 12/17/18 09:15 [place] # (Auto) Not Reportable 12/17/18 09:15 Eos # (Auto) 100 /uL (0-450) 11/19/18 08:35 Baso # (Auto) Not Reportable 12/17/18 09:15 Sodium 137 mmol/L (137-145) 12/17/18 09:15 Potassium 4.0 mmol/L (3.4-5.1) 12/17/18 09:15 Chloride 104 mmol/L (98-107) 12/17/18 09:15 Carbon Dioxide 27 mmol/L (22-32) 12/17/18 09:15 BUN 16 mg/dL (9-20) 12/17/18 09:15 Creatinine 0.70 mg/dL (0.66-1.25) 12/17/18 09:15 Estimated GFR > 60.0 mL/min (>60) 12/17/18 09:15 BUN/Creatinine Ratio 22.9 (6-22) H 12/17/18 09:15 Glucose 130 mg/dL (80-110) H 12/17/18 09:15 Calcium 8.4 mg/dL (8.4-10.2) 12/17/18 09:15 Total Bilirubin 0.9 mg/dL (0.2-1.3) 12/17/18 09:15 AST 33 IU/L (17-59) 12/17/18 09:15 ALT 32 IU/L (21-72) 12/17/18 09:15 Alkaline Phosphatase 183 U/L (38-126) H 12/17/18 09:15 Lactate Dehydrogenase 541 U/L (313-618) 04/02/18 14:32 Total Protein 5.2 g/dL (6.3-8.2) L 12/17/18 09:15 Albumin 2.6 g/dL (3.5-5.0) L 12/17/18 09:15 Globulin 2.6 g/dL (1.7-4.1) 12/17/18 09:15 Albumin/Globulin Ratio 1.0 (1.0-2.8) 12/17/18 09:15 Urine Color Yellow 11/19/18 12:05 Urine Appearance Clear 11/19/18 12:05 Urine pH 6.0 (4.5-8.0) 11/19/18 12:05 Ur Specific [place] 1.010 (1.000-1.035) 11/19/18 12:05 Urine Protein Negative (Negative) 11/19/18 12:05 Urine Glucose (UA) Negative g/dL (Negative) 11/19/18 12:05 Urine Ketones Negative (NEGATIVE) 11/19/18 12:05 Urine Occult Blood Negative (Negative) 11/19/18 12:05 Urine Nitrate Negative (Negative) 11/19/18 12:05 Urine Bilirubin Negative (NEGATIVE) 11/19/18 12:05 Urine Urobilinogen 0.2 E.U./dL (0.2) 11/19/18 12:05 Ur Leukocyte Esterase Negative (NEGATIVE) 11/19/18 12:05 - Imaging Additional studies: PET-CT from December 03 was reviewed with the patient and his son. It showed marked decrease in the uptake in the left ankle. There still was an area with an SUV of about 2.5. There was some increased activity in the right leg that was nonspecific. Assessment and Plan (1) Diffuse large B-cell lymphoma Current visit: No Status: Acute This is an 82-year-old man with a history of diffuse large B-cell lymphoma involving the leg. He has a localized recurrence at the ankle. He has completed his 3nd cycle of chemotherapy in appears to be having a fairly good response. He has having increasing weakness fatigue weight loss and difficulty walking. I think the side effects may be at least in part related to his chemotherapy. His vascular disease may be contributing somewhat as well. He did not really have a big improvement after his transfusion. I think he will require a few more cycles of chemotherapy. I am afraid that if we stop his treatment now, he is likely to have a rapid relapse of his lymphoma. He is willing to continue. We will proceed with his 4th cycle today. He will return to clinic in about 4 weeks for follow-up. Will take additional cycles on a month by month basis. His pain control has been somewhat less than adequate. I did increase the dose of his MS Contin to 15 mg 3 times a day. (1) Diffuse large B-cell lymphoma Qualifiers: Lymphoma site: lower extremity Qualified Code(s): C83.35 - Diffuse large B-cell lymphoma, lymph nodes of inguinal region and lower limb
[2018-12-17 10:12] LABS: Anisocytosis 1+; Neutrophils Absolute Manual 4200 /uL (3000-5900); Total Cells Counted 100
[2018-12-17] MEDS: HYDROCORTISONE 100 MG/2 ML VIAL IV (10:51)
[2018-12-17] MEDS: diphenhydrAMINE 25 MG TABLET PO (10:52)
[2018-12-17] MEDS: ACETAMINOPHEN 325 MG TABLET 650 MG PO (10:52)
[2018-12-17] MEDS: SODIUM CHLORIDE 0.9% 100 ML 21 ML IV (10:52)
[2018-12-17] MEDS: ONDANSETRON 16 MG in SODIUM CHLORIDE 0.9% 50 ML 232 ML IV (11:38)
[2018-12-17] MEDS: NORMAL SALINE IV ×2 (12:15→15:29)
[2018-12-17] MEDS: RITUXIMAB IV (12:15)
[2018-12-17] MEDS: BENDAMUSTINE IV (15:29)
[2018-12-18 09:49] VITALS: BP 112/58; PULSE 84; RESP 16; TEMP 36.5; O2SAT 97
[2018-12-18] MEDS: SODIUM CHLORIDE 0.9% 100 ML 21 ML IV (10:15)
[2018-12-18] MEDS: ONDANSETRON 16 MG in SODIUM CHLORIDE 0.9% 50 ML 232 ML IV (10:36)
[2018-12-18] MEDS: BENDAMUSTINE IV (11:08)
[2018-12-18] MEDS: NORMAL SALINE IV (11:08)
--- NOTE | 2018-12-23 17:51 | PC.NURSE ---
HOME HEALTH PT: [facility] called requesting a verbal order for PT 1x/week for [address] Levin for order.
[2018-12-24 14:18] LABS: Hematocrit 34.9 % (41-53); Hemoglobin 12.1 g/dL (13.5-17.5); Mean Corpuscular HGB Conc 34.8 % (30-36); Mean Corpuscular Volume 92.1 fL (80-100); Platelet Count 96 X10^3/uL (150-400); Red Blood Cell Count 3.79 X10^6/uL (4.5-5.9); White Blood Cell Count 2.6 X10^3/uL (4.5-11.0)
[2018-12-24 14:19] LABS: Add Manual Diff / Slide Review YES
[2018-12-24 14:26] LABS: Alanine Aminotransferase 32 IU/L (21-72); Albumin 2.7 g/dL (3.5-5.0); Alkaline Phosphatase 163 U/L (38-126); Aspartate Aminotransferase 34 IU/L (17-59); Blood Urea Nitrogen 12 mg/dL (9-20); Carbon Dioxide 29 mmol/L (22-32); Chloride 101 mmol/L (98-107); Estimated Glomerular Filt Rate > 60.0 mL/min (>60); Globulin 2.6 g/dL (1.7-4.1); Glucose 114 mg/dL (80-110); HEMOLYSIS < 15 (0-50); Potassium 2.9 mmol/L (3.4-5.1); Sodium 138 mmol/L (137-145); Total Protein 5.3 g/dL (6.3-8.2)
[2018-12-24 14:37] LABS: Neutrophils Absolute Manual 1820 /uL (3000-5900); RBC Morphology Normal Morphology; Total Cells Counted 50
== END ==
PROVIDERS: Family Provider Family Medicine; PCP Family Medicine
DX: C83.35 Diffuse large B-cell lymphoma, lymph nodes of inguinal region and lower limb (principal)
CPT/HCPCS: 36591; 36592; 80053; 81003; 83615; 85025; 96360; 96375; 96413; 96415; 96417; 96523; 99214; 99215; J1100; J1720; J2405; J9034; J9036; J9312

== ENCOUNTER 2018-12-25 07:25 | Inpatient (IN) | payer OTHER, SELFPAY ==
[2018-12-15 19:18] VITALS: BMI 19.9
[2018-12-25] VITALS (15 sets, daily range): BP systolic 119–158; BP diastolic 43–76; PULSE 75–128; RESP 11–27; TEMP 36.7–37.3; O2SAT 91–98; BMI 20.9
--- NOTE | 2018-12-25 07:40 | DI.RAD.S_ITS ---
PROCEDURE: XR ABDOMEN 1V INDICATIONS: chest/abdominal pain TECHNIQUE: One view of the abdomen acquired. COMPARISON: None. FINDINGS: Surgical changes and devices: None. Bowel: Bowel gas pattern is normal. Soft tissues: No suspicious abdominal calcifications. Visualized solid organ contours appear normal in size. Bones: No suspicious bony lesions. IMPRESSION: Nonspecific bowel gas pattern, source of pain is not seen. Dictated by: Greg Orta M.D. on 12/25/2018 at 8:43 Approved by: Greg Orta M.D. on 12/25/2018 at 8:44
--- NOTE | 2018-12-25 07:40 | DI.RAD.S_ITS ---
PROCEDURE: XR CHEST 1V INDICATIONS: chest/abdominal pain TECHNIQUE: One view of the chest was acquired. COMPARISON: [facility], NM, NM PET CT FUSION WHOLE BODY, 12/03/2018, 13:38. [facility], CR, XR CHEST 1V, 12/15/2018, 16:04. [facility], CR, XR CHEST 1V, 05/12/2018, 13:58. FINDINGS: Surgical changes and devices: Central line from right sided approach extends into the atrial caval junction area. Lungs and pleura: Lungs are abnormal, with chronic asymmetric right greater than left apparent pleural plaquing and calcifications. This has been previously identified also by the CT scanning portion of PET/CT 12/03/18. No pleural effusions or pneumothorax. Mediastinum: Mediastinal contours appear normal. Heart size is normal. Bones and chest wall: No suspicious bony lesions. Overlying soft tissues appear unremarkable. IMPRESSION: Relatively large lung volumes, suspect prior smoking history. 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 No pleural mass or pleural effusion found. Port-A-Cath from right sided approach has its tip extending into the atriocaval junction. Source of pain not found. Dictated by: Greg Orta M.D. on 12/25/2018 at 8:38 Approved by: Greg Orta M.D. on 12/25/2018 at 8:43
--- NOTE | 2018-12-25 07:42 | ED.CHESTPAIN ---
HPI - Chest Pain General Chief Complaint: Chest Pain Stated Complaint: Chest pain Time Seen by Provider: 12/25/18 07:39 Source: patient, EMS and old records reviewed Mode of arrival: EMS Limitations: no limitations History of Present Illness HPI narrative: This is an 83-year-old male comes to the emergency department with complaint of abdominal pain radiating up into his chest and towards his neck. Patient states that it does not radiate to his back. He states that that has improved but still mildly present but his main complaint of pain is his left lower extremity. 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 Sure he takes morphine as well as Percocet orally for pain control. He states that his last dose was sometime overnight but likely many hours ago. Patient does take an aspirin 81 mg as well as Brilinta for vascular issues with his lower extremities. He states that Dr. khan there at did attempt to treat him is, this failed and he was referred to [facility] but they are treating his cancer 1st diagnosed in controlling his symptoms with pain medication at this time. The patient states that he does feel short of breath earlier and states that happens on and off. He has had cardiac stents x3. He states the pain started in his abdomen but then sort of moved into his chest. Patient has been nauseated. He has not vomited this morning but did yesterday 1 time. He has had normal bowel movements. He has some chronic issues with urinary urge incontinence. No painful urination. He has had some chills on and off but no clear-cut fevers. Related Data Home Medications Medication Instructions Recorded Confirmed Centrum Silver 1 tab PO DAILY #0 11/09/10 12/25/18 atorvastatin 40 mg PO BEDTIME 05/12/18 12/25/18 magnesium oxide 400 mg PO BID 09/03/18 12/25/18 Brilinta 90 mg PO BID 12/15/18 12/25/18 metoprolol tartrate 75 mg PO BID 12/15/18 12/25/18 nitroglycerin 0.4 mg sublingual 0.4 mg SL Q5-15M PRN 12/24/18 12/25/18 tablet acetaminophen 500 - 1,000 mg PO Q6H PRN 12/25/18 12/25/18 aspirin 325 mg PO DAILY 08/22/19 08/22/19 oxycodone-acetaminophen 2 tab PO Q4-6H PRN 12/25/18 12/25/18 Previous Rx's Medication Instructions Recorded gabapentin 300 mg capsule 300 mg PO BEDTIME #30 cap 09/26/18 isosorbide mononitrate ER 30 mg 30 mg PO DAILY #30 tab 09/26/18 tablet,extended release 24 hr lisinopril 5 mg PO DAILY #30 tab 12/16/18 morphine [MS Contin] 15 mg PO Q8H 30 Days #90 tab 12/17/18 metoclopramide 5 mg tablet 5 mg PO QACHS #30 tab 12/24/18 omeprazole 20 mg capsule,delayed 20 mg PO DAILY #30 cap 12/24/18 release Allergies Allergy/AdvReac Type Severity Reaction Status Date / Time codeine [CODEINE] Allergy Unknown EYES RED, Verified 12/24/18 14:23 PUFF UP Review of Systems Review of Systems ROS Unobtainable: All systems reviewed & are unremarkable except as noted in HPI and below Constitutional Reports chills, Denies fever(s), Denies lethargy and Denies weakness Cardiovascular Reports chest pain, Reports chest pain at rest, Denies diaphoresis, Denies syncope, Reports edema (Left leg), Denies irregular heart rhythm, Denies lightheadedness, Denies palpitations, Reports dyspnea (Intermittent) and Denies orthopnea Respiratory Denies change in phlegm color, Denies chest congestion, Denies cough, Reports dyspnea (Intermittent) and Denies wheezing Gastrointestinal Gastrointestinal: Reports abdominal pain, Denies change in bowel habits, Denies diarrhea, Reports nausea and Reports vomiting (x1 yesterday) Genitourinary Denies hematuria, Denies dysuria, Denies flank pain, Reports urinary frequency, Denies urinary hesitancy, Reports urinary incontinence and Denies urinary urgency Musculoskeletal Denies back pain Integumentary/Breasts Denies erythema and Reports sores Neurologic Denies syncope and Denies weakness Endocrine Denies palpitations Allergic/Immunologic Denies wheezing [facility] Medical History (Updated 12/25/18 @ 18:53 by Rebekah Callahan DO) Legally blind (Chronic) Diabetes type 2, controlled (Chronic) Acute dehydration (Acute) Symptomatic anemia (Acute) 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 (Acute) Hearing loss (Chronic Unknown) Hyperlipemia (Chronic Unknown) Diabetic neuropathy (Chronic Unknown) Coronary artery disease (Chronic Unknown) Hypertension (Chronic Unknown) Heart attack (Acute) Peripheral arterial disease (Acute) Surgical History (Updated 12/25/18 @ 18:53 by Rebekah Callahan DO) Hx of percutaneous transluminal coronary angioplasty (Chronic) S/P coronary artery stent placement (Acute) Status post eye surgery Family History (Updated 12/25/18 @ 18:54 by Rebekah Callahan DO) Father CVA (cerebral vascular accident) Mother CVA (cerebral vascular accident) Brother Congestive heart failure Social History household members: spouse Smoking Status: Former smoker Tobacco: How many years used: 35 alcohol intake: never Social History household members: spouse Smoking Status: Former smoker Tobacco: How many years used: 35 alcohol intake: never Exam Narrative Exam Narrative: GENERAL: Alert and oriented x three, thin elderly appearing male in moderate distress HEENT: Head normocephalic, atraumatic, EOMI, pupils reactive, face symmetric, moist mucous membranes NECK: Supple, full range of motion CARDIOVASCULAR: Regular rate and rhythm without murmurs, rubs or gallops. RESPIRATORY: Breath sounds equal bilaterally, no wheezes rales or rhonchi. ABDOMEN: Soft, nontender. Normoactive bowel sounds all 4 quadrants. No guarding or rebound, rigidity, no mass. Nondistended. : No CVA tenderness EXTREMITIES: Normal range of motion, no clubbing. Patient has edema of the left lower extremity with open wound on the medial malleoli. Leg is slightly erythematous in comparison to the right. The patient is tender to even light touch to the area. Patient has cap refill less than 2 seconds in all 10 toes. Sensation intact throughout. NEUROLOGICAL: Cranial nerves II through XII grossly intact. Moving all extremities SKIN: Warm, dry, no petechiae, no rashes or lesions. Initial Vital Signs Initial Vital Signs: Vital Signs Temperature 98.1 F 12/25/18 07:32 Pulse Rate 128 H 12/25/18 07:32 Respiratory Rate 21 12/25/18 07:32 Blood Pressure 158/65 H 12/25/18 07:32 Pulse Oximetry 98 12/25/18 07:32 Course Orders Ordered: ED Orders 12/25/18 10:12 CT angio chest abdomen pelvis Stat 12/25/18 10:20 EKG-12 Lead Routine 12/25/18 10:30 Troponin & CK Cardiac Panel Stat 12/25/18 15:41 Consult to Dietitian, Adult Routine 12/25/18 17:47 EKG-12 Lead Stat 12/25/18 18:00 Urinalysis and Microscopic Stat 12/25/18 18:35 Magnesium Stat Potassium Stat Troponin & CK Cardiac Panel Stat 12/25/18 18:37 Respiratory Panel (Film Array) Stat Aspirin (Aspirin) 325 mg PO DAILY [facility] Atorvastatin Calcium (Lipitor) 40 mg PO BEDTIME EDITA Gabapentin (Neurontin) 300 mg PO BEDTIME EDITA Potassium Chloride 60 meq/ (Sodium Chloride) 530 mls @ 88.333 mls/hr IV NOW ONE Stop: 12/26/18 00:40 Isosorbide Mononitrate (Imdur) 30 mg PO DAILY [facility] Lisinopril (Zestril) 5 mg PO DAILY [facility] Metoclopramide HCl (Reglan) 5 mg PO ACHS EDITA Metoprolol Tartrate (Lopressor) 75 mg PO BID [facility] Morphine Sulfate (Morphine) 4 mg IV Q15MIN PRN PRN Reason: Chest Pain Morphine Sulfate (Ms Contin) 15 mg PO Q8H [facility] Nitroglycerin (Nitrostat) 0.3 mg SL [id number] EDITA Ticagrelor [Brilinta (] 90 Mg) 90 mg PO BID [facility] Ondansetron HCl (Zofran) 4 mg IV Q4HR PRN PRN Reason: Nausea And Vomiting Last Admin: 12/25/18 18:06 Dose: 4 mg Oxycodone/Acetaminophen (Percocet 5/325) 2 tab PO Q4H PRN PRN Reason: pain Pantoprazole Sodium (Protonix) 20 mg PO DAILY EDITA Discontinued Medications Aspirin (Aspirin Chew) 324 mg PO NOW ONE Stop: 12/25/18 07:41 Last Admin: 12/25/18 07:57 Dose: 324 mg Sodium Chloride (Normal Saline 0.9%) 1,000 mls @ 150 mls/hr IV CONT EDITA Last Infusion: 12/25/18 09:30 Dose: 25 mls/hr Infusion: 12/25/18 08:22 Dose: 999 mls/hr Admin: 12/25/18 07:58 Dose: 150 mls/hr Sodium Chloride (Normal Saline 0.9%) 1,000 mls @ 1,000 mls/hr IV BOLUS ONE Stop: 12/25/18 09:16 Last Admin: 12/25/18 08:39 Dose: Not Given Potassium Chloride 40 meq/ (Sodium Chloride) 520 mls @ 130 mls/hr IV NOW ONE Stop: 12/25/18 16:20 Last Infusion: 12/25/18 14:18 Dose: 130 mls/hr Admin: 12/25/18 12:48 Dose: 130 mls/hr Sodium Chloride (Normal Saline 0.9%) 1,000 mls @ 125 mls/hr IV CONT EDITA Last Admin: 12/25/18 16:56 Dose: 125 mls/hr Metoprolol Succinate (Toprol Xl) 75 mg PO NOW ONE Stop: 12/25/18 08:20 Last Admin: 12/25/18 10:05 Dose: Not Given Metoprolol Tartrate (Lopressor) 75 mg PO NOW ONE Stop: 12/25/18 08:24 Last Admin: 12/25/18 09:14 Dose: 75 mg Morphine Sulfate (Morphine) 4 mg IV NOW ONE Stop: 12/25/18 07:41 Last Admin: 12/25/18 07:57 Dose: 4 mg Morphine Sulfate (Morphine) 4 mg IV NOW ONE Stop: 12/25/18 12:21 Last Admin: 12/25/18 12:47 Dose: 4 mg Morphine Sulfate (Morphine) 4 mg IV Q2HR EDITA Last Admin: 12/25/18 18:41 Dose: Not Given Admin: 12/25/18 16:43 Dose: Not Given Nitroglycerin (Nitrostat) 0.4 mg SL NOW ONE Stop: 12/25/18 17:50 Last Admin: 12/25/18 17:52 Dose: 0.4 mg Ondansetron HCl (Zofran) 4 mg IV NOW ONE Stop: 12/25/18 07:41 Last Admin: 12/25/18 07:57 Dose: 4 mg Potassium Chloride (Potassium Chloride) 40 meq PO NOW ONE Stop: 12/25/18 08:16 Last Admin: 12/25/18 09:14 Dose: 40 meq Vital Signs - 8 hr 12/25/18 11:40 12/25/18 12:21 12/25/18 13:43 Temperature Pulse Rate 94 H 87 81 Respiratory Rate 17 16 15 Blood Pressure Blood Pressure [Left Arm] 125/50 L 143/63 H 127/43 L Pulse Oximetry 93 98 96 12/25/18 14:25 12/25/18 16:12 12/25/18 17:52 Temperature 98.4 F 98.5 F Pulse Rate 81 83 79 Respiratory Rate 16 20 Blood Pressure 136/54 L 140/70 138/67 Blood Pressure [Left Arm] Pulse Oximetry 97 12/25/18 18:36 Temperature Pulse Rate Respiratory Rate Blood Pressure 119/63 Blood Pressure [Left Arm] Pulse Oximetry MDM - Chest Pain Lab Data Attestation: I reviewed the patient's lab results. Result diagrams: 12/25/18 07:10 12/25/18 18:35 Lab Results 12/25/18 12/25/18 12/25/18 Range/Units 07:10 07:10 07:10 WBC 3.5 L (4.5-11.0) X10^3/uL RBC 4.37 L (4.5-5.9) X10^6/uL Hgb 13.8 (13.5-17.5) g/dL Hct 40.4 L (41-53) % MCV 92.3 (80-100) fL MCH 31.5 (26-34) PG MCHC 34.1 (30-36) % RDW 16.7 H (11.6-14.8) % Plt Count 118 L (150-400) X10^3/uL Neut % (Auto) Not Reportable Lymph % (Auto) Not Reportable [place] % (Auto) Not Reportable Eos % (Auto) Not Reportable Baso % (Auto) Not Reportable Lymph # (Auto) Not Reportable [place] # (Auto) Not Reportable Baso # (Auto) Not Reportable Total Counted 100 Seg Neutrophils % 63.0 (38-70) % Band Neutrophils % 2.0 L (3-7) % Lymphocytes % (Manual) 7.0 L (25-45) % Atypical Lymphs % 3.0 H ( - 0) % Monocytes % (Manual) 23.0 H (2-11) % Eosinophils % (Manual) 1.0 L (2-4) % Metamyelocytes % 1.0 H (-0) % Neutrophils # (Manual) 2275 L (4722-1249) /uL RBC Morphology See below Anisocytosis 1+ H PT 13.5 H (10.1-12.7) SECONDS INR 1.2 (0.9-1.3) APTT 40 H (26.4-36.2) SECONDS Sodium 142 (137-145) mmol/L Potassium 2.9 L (3.4-5.1) mmol/L Chloride 100 (98-107) mmol/L Carbon Dioxide 28 (22-32) mmol/L BUN 12 (9-20) mg/dL Creatinine 0.70 (0.66-1.25) mg/dL Estimated GFR > 60.0 (>60) mL/min BUN/Creatinine Ratio 17.1 (6-22) Glucose 98 (80-110) mg/dL Calcium 8.5 (8.4-10.2) mg/dL Magnesium (1.6-2.3) mg/dL Total Bilirubin 1.1 (0.2-1.3) mg/dL AST 59 (17-59) IU/L ALT 38 (21-72) IU/L Alkaline Phosphatase 195 H (38-126) U/L Total Creatine Kinase 31 L (55-170) U/L CK-MB (CK-2) TNP CK-MB (CK-2) Rel Index TNP Troponin I 0.055 H (0.01-0.034) ng/mL B-Natriuretic Peptide 1480 H (<100) Total Protein 6.1 L (6.3-8.2) g/dL Albumin 3.3 L (3.5-5.0) g/dL Globulin 2.8 (1.7-4.1) g/dL Albumin/Globulin Ratio 1.2 (1.0-2.8) Lipase 58 (23-300) U/L Procalcitonin (<0.5) ng/mL Urine Color Urine Appearance Urine pH (4.5-8.0) Ur Specific Hermon (1.000-1.035) Urine Protein (Negative) Urine Glucose (UA) (Negative) g/dL Urine Ketones (NEGATIVE) Urine Occult Blood (Negative) Urine Nitrate (Negative) Urine Bilirubin (NEGATIVE) Urine Urobilinogen (0.2) E.U./dL Ur Leukocyte Esterase (NEGATIVE) Urine RBC (0-5/HPF) Urine WBC (0-5/HPF) Amorphous Sediment Urine Bacteria (None) Ur Culture Indicated? 12/25/18 12/25/18 12/25/18 Range/Units 07:10 09:46 10:30 WBC (4.5-11.0) X10^3/uL RBC (4.5-5.9) X10^6/uL Hgb (13.5-17.5) g/dL Hct (41-53) % MCV (80-100) fL MCH (26-34) PG MCHC (30-36) % RDW (11.6-14.8) % Plt Count (150-400) X10^3/uL Neut % (Auto) Lymph % (Auto) [place] % (Auto) Eos % (Auto) Baso % (Auto) Lymph # (Auto) [place] # (Auto) Baso # (Auto) Total Counted Seg Neutrophils % (38-70) % Band Neutrophils % (3-7) % Lymphocytes % (Manual) (25-45) % Atypical Lymphs % ( - 0) % Monocytes % (Manual) (2-11) % Eosinophils % (Manual) (2-4) % Metamyelocytes % (-0) % Neutrophils # (Manual) (4335-6901) /uL RBC Morphology Anisocytosis PT (10.1-12.7) SECONDS INR (0.9-1.3) APTT (26.4-36.2) SECONDS Sodium (137-145) mmol/L Potassium (3.4-5.1) mmol/L Chloride (98-107) mmol/L Carbon Dioxide (22-32) mmol/L BUN (9-20) mg/dL Creatinine (0.66-1.25) mg/dL Estimated GFR (>60) mL/min BUN/Creatinine Ratio (6-22) Glucose (80-110) mg/dL Calcium (8.4-10.2) mg/dL Magnesium (1.6-2.3) mg/dL Total Bilirubin (0.2-1.3) mg/dL AST (17-59) IU/L ALT (21-72) IU/L Alkaline Phosphatase (38-126) U/L Total Creatine Kinase 24 L (55-170) U/L CK-MB (CK-2) TNP CK-MB (CK-2) Rel Index TNP Troponin I 0.051 H (0.01-0.034) ng/mL B-Natriuretic Peptide (<100) Total Protein (6.3-8.2) g/dL Albumin (3.5-5.0) g/dL Globulin (1.7-4.1) g/dL Albumin/Globulin Ratio (1.0-2.8) Lipase (23-300) U/L Procalcitonin 0.12 (<0.5) ng/mL Urine Color Urine Appearance Urine pH (4.5-8.0) Ur Specific Hermon (1.000-1.035) Urine Protein (Negative) Urine Glucose (UA) (Negative) g/dL Urine Ketones (NEGATIVE) Urine Occult Blood (Negative) Urine Nitrate (Negative) Urine Bilirubin (NEGATIVE) Urine Urobilinogen (0.2) E.U./dL Ur Leukocyte Esterase (NEGATIVE) Urine RBC 1-5/hpf (0-5/HPF) Urine WBC 1-5/hpf (0-5/HPF) Amorphous Sediment 2+ Urine Bacteria Occasional (0-1) (None) Ur Culture Indicated? Specimen cultured 12/25/18 12/25/18 12/25/18 Range/Units 18:00 18:35 18:35 WBC (4.5-11.0) X10^3/uL RBC (4.5-5.9) X10^6/uL Hgb (13.5-17.5) g/dL Hct (41-53) % MCV (80-100) fL MCH (26-34) PG MCHC (30-36) % RDW (11.6-14.8) % Plt Count (150-400) X10^3/uL Neut % (Auto) Lymph % (Auto) [place] % (Auto) Eos % (Auto) Baso % (Auto) Lymph # (Auto) [place] # (Auto) Baso # (Auto) Total Counted Seg Neutrophils % (38-70) % Band Neutrophils % (3-7) % Lymphocytes % (Manual) (25-45) % Atypical Lymphs % ( - 0) % Monocytes % (Manual) (2-11) % Eosinophils % (Manual) (2-4) % Metamyelocytes % (-0) % Neutrophils # (Manual) (0494-0294) /uL RBC Morphology Anisocytosis PT (10.1-12.7) SECONDS INR (0.9-1.3) APTT (26.4-36.2) SECONDS Sodium (137-145) mmol/L Potassium 3.2 L (3.4-5.1) mmol/L Chloride (98-107) mmol/L Carbon Dioxide (22-32) mmol/L BUN (9-20) mg/dL Creatinine (0.66-1.25) mg/dL Estimated GFR (>60) mL/min BUN/Creatinine Ratio (6-22) Glucose (80-110) mg/dL Calcium (8.4-10.2) mg/dL Magnesium (1.6-2.3) mg/dL Total Bilirubin (0.2-1.3) mg/dL AST (17-59) IU/L ALT (21-72) IU/L Alkaline Phosphatase (38-126) U/L Total Creatine Kinase 27 L (55-170) U/L CK-MB (CK-2) TNP CK-MB (CK-2) Rel Index TNP Troponin I (0.01-0.034) ng/mL B-Natriuretic Peptide (<100) Total Protein (6.3-8.2) g/dL Albumin (3.5-5.0) g/dL Globulin (1.7-4.1) g/dL Albumin/Globulin Ratio (1.0-2.8) Lipase (23-300) U/L Procalcitonin (<0.5) ng/mL Urine Color Yellow Urine Appearance Clear Urine pH 7.0 (4.5-8.0) Ur Specific Hermon 1.010 (1.000-1.035) Urine Protein Negative (Negative) Urine Glucose (UA) Negative (Negative) g/dL Urine Ketones 1+ H (NEGATIVE) Urine Occult Blood Negative (Negative) Urine Nitrate Negative (Negative) Urine Bilirubin Negative (NEGATIVE) Urine Urobilinogen 0.2 (0.2) E.U./dL Ur Leukocyte Esterase Negative (NEGATIVE) Urine RBC (0-5/HPF) Urine WBC (0-5/HPF) Amorphous Sediment Urine Bacteria (None) Ur Culture Indicated? 12/25/18 Range/Units 18:35 WBC (4.5-11.0) X10^3/uL RBC (4.5-5.9) X10^6/uL Hgb (13.5-17.5) g/dL Hct (41-53) % MCV (80-100) fL MCH (26-34) PG MCHC (30-36) % RDW (11.6-14.8) % Plt Count (150-400) X10^3/uL Neut % (Auto) Lymph % (Auto) [place] % (Auto) Eos % (Auto) Baso % (Auto) Lymph # (Auto) [place] # (Auto) Baso # (Auto) Total Counted Seg Neutrophils % (38-70) % Band Neutrophils % (3-7) % Lymphocytes % (Manual) (25-45) % Atypical Lymphs % ( - 0) % Monocytes % (Manual) (2-11) % Eosinophils % (Manual) (2-4) % Metamyelocytes % (-0) % Neutrophils # (Manual) (3109-7033) /uL RBC Morphology Anisocytosis PT (10.1-12.7) SECONDS INR (0.9-1.3) APTT (26.4-36.2) SECONDS Sodium (137-145) mmol/L Potassium (3.4-5.1) mmol/L Chloride (98-107) mmol/L Carbon Dioxide (22-32) mmol/L BUN (9-20) mg/dL Creatinine (0.66-1.25) mg/dL Estimated GFR (>60) mL/min BUN/Creatinine Ratio (6-22) Glucose (80-110) mg/dL Calcium (8.4-10.2) mg/dL Magnesium 1.3 L (1.6-2.3) mg/dL Total Bilirubin (0.2-1.3) mg/dL AST (17-59) IU/L ALT (21-72) IU/L Alkaline Phosphatase (38-126) U/L Total Creatine Kinase (55-170) U/L CK-MB (CK-2) CK-MB (CK-2) Rel Index Troponin I (0.01-0.034) ng/mL B-Natriuretic Peptide (<100) Total Protein (6.3-8.2) g/dL Albumin (3.5-5.0) g/dL Globulin (1.7-4.1) g/dL Albumin/Globulin Ratio (1.0-2.8) Lipase (23-300) U/L Procalcitonin (<0.5) ng/mL Urine Color Urine Appearance Urine pH (4.5-8.0) Ur Specific Hermon (1.000-1.035) Urine Protein (Negative) Urine Glucose (UA) (Negative) g/dL Urine Ketones (NEGATIVE) Urine Occult Blood (Negative) Urine Nitrate (Negative) Urine Bilirubin (NEGATIVE) Urine Urobilinogen (0.2) E.U./dL Ur Leukocyte Esterase (NEGATIVE) Urine RBC (0-5/HPF) Urine WBC (0-5/HPF) Amorphous Sediment Urine Bacteria (None) Ur Culture Indicated? Urine Dip Bedside Urine Glucose Negative Bedside Urine Bilirubin - Negative Bedside Urine Ketone +++ 80 Urine Specific Hermon 1.020 Bedside Urine Occult Blood - Negative Bedside Urine pH 6.0 Bedside Urine Protein - Negative Bedside Urine Urobilinogen - Negative Bedside Urine Nitrite - Negative Bedside Urine Leukocytes - Negative Esterase Imaging Data Chest x-ray: Radiologist's impression: [address] [id number] XRay Report Signed Patient: Carlos Ortega EMR#: [id number] : 5Acct:[id number] Age/Sex: 83 / MDate of Service: 12/25/18 Loc: ED Accession Number: [id number] Procedure: XR chest 1V Ordering Provider: Aster Sharp D.O. PROCEDURE: XR CHEST 1V INDICATIONS: chest/abdominal pain TECHNIQUE: One view of the chest was acquired. COMPARISON: [facility], ID, ID PET CT FUSION WHOLE BODY, 12/03/2018, 13:38. [facility], , XR CHEST 1V, 12/15/2018, 16:04. [facility], , XR CHEST 1V, 05/12/2018, 13:58. FINDINGS: Surgical changes and devices: Central line from right sided approach extends into the atrial caval junction area. Lungs and pleura: Lungs are abnormal, with chronic asymmetric right greater than left apparent pleural plaquing and calcifications. This has been previously identified also by the CT scanning portion of PET/CT 12/03/18. No pleural effusions or pneumothorax. Mediastinum: Mediastinal contours appear normal. Heart size is normal. Bones and chest wall: No suspicious bony lesions. Overlying soft tissues appear unremarkable. IMPRESSION: Relatively large lung volumes, suspect prior smoking history. 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 No pleural mass or pleural effusion found. Port-A-Cath from right sided approach has its tip extending into the atriocaval junction. Source of pain not found. Dictated by: Greg Orta M.D. on 12/25/2018 at 8:38 Approved by: Greg Orta M.D. on 12/25/2018 at 8:43 Abdominal x-ray: Radiologist's impression: [address] [address] XRay Report Signed Patient: Carlos Ortega EMR#: [id number] : 5Acct:[id number] Age/Sex: 83 / MDate of Service: 12/25/18 Loc: ED Accession Number: [id number] Procedure: XR abdomen 1V Ordering Provider: Aster Sharp D.O. PROCEDURE: XR ABDOMEN 1V INDICATIONS: chest/abdominal pain TECHNIQUE: One view of the abdomen acquired. COMPARISON: None. FINDINGS: Surgical changes and devices: None. Bowel: Bowel gas pattern is normal. Soft tissues: No suspicious abdominal calcifications. Visualized solid organ contours appear normal in size. Bones: No suspicious bony lesions. IMPRESSION: Nonspecific bowel gas pattern, source of pain is not seen. Dictated by: Greg Orta M.D. on 12/25/2018 at 8:43 Approved by: Greg Orta M.D. on 12/25/2018 at 8:44 Venous US: Radiologist's impression: [address] [address] Ultrasound Report Signed Patient: Carlos Ortega EMR#: [id number] : 5Acct:[id number] Age/Sex: 83 / MDate of Service: 12/25/18 Loc: ED Accession Number: [id number] Procedure: US periph venous low extrem lt Ordering Provider: Aster Sharp D.O. PROCEDURE: US PERIPH VENOUS LOW EXTREM LT INDICATIONS: LEFT LEG SWELLING TECHNIQUE: Real-time imaging, as well as color and pulse Doppler interrogation, were performed of the lower extremity deep veins from the inguinal ligament to the popliteal fossa. COMPARISON: None. FINDINGS: The common femoral, femoral and popliteal veins are normally compressible, and free of intraluminal thrombus. Color and pulse Doppler demonstrate normal phasic intraluminal flow. There is normal augmentation response to distal compression maneuver. IMPRESSION: No DVT found. Dictated by: Greg Orta M.D. on 12/25/2018 at 9:19 Approved by: Greg Orta M.D. on 12/25/2018 at 9:19 ECG Data Attestation: I personally reviewed and interpreted this ECG as follows: Prior ECG tracings: available for review Interpretation: Sinus tachycardia with a rate of 101 RI 162 QRS of 133 and QTC of 401. Patient has slight ST depression in V2-V6. The right bundle branch block. Patient has prior EKG from 12/15/18 with similar changes. MDM Narrative Medical decision making narrative: 83-year-old male comes in patient's complaint of abdominal pain radiating to the chest and neck but patient has had some vomiting. He also is complaining quite a bit of lower extremity pain. He received aspirin 20 mg nitro with EMS upon arrival still had some chest pain but was feeling better. Lower extremity pain was still quite significant. He had not taken his morphine for several hours. White count is decreased at 3.5, hemoglobin appears stable 13.8, platelets are 118 although this appears consistent with priors over the last month. Patient has elevated monocytes and atypical lymphocytes. Coags show a PTT of 40. Is low at 2.9 with otherwise normal electrolytes and renal function. Alk-phos is elevated but appears pretty similar to his priors. His troponin is 0.055. He has had negatives as well as indeterminate in the past. CK-MB is TN P. BNP is 14 80 which is elevated from a 7 800 that he was earlier in December. Procalcitonin is 0.12. Patient's lower extremity pain is still present but he is otherwise able to rest. Discussed his case with his medical staff credentialing coordinator Dr. Ayon and they recommend repeat troponin at the 3 hour carmen and additional imaging for his risk factors. If elevated troponin transfer to [facility], if not elevating could observe here. Patient pain is better controlled, he could not keep down oral potassium and started on K-rider. Plan for admission for observation to Dr. Callahan for hypokalemia 2nd vomiting. Although patient BNP is elevated he looks clinically dry so continue to give some slow fluids. Discharge Plan Departure Patient Disposition: Admitted as Observation Clinical Impression: Hypokalemia, Vomiting Discharge Date/Time: 12/25/18 14:22 Interventions: ED Discharge Assessment Last Done: 12/25/18 14:21 Referrals: Kristie Sage DO [Primary Care Provider] - Admit Date/Time: 12/25/18 14:06 Admit Provider: Rebekah Callahan
--- NOTE | 2018-12-25 07:51 | ED_ITS ---
HPI - Chest Pain General Chief Complaint: Chest Pain Stated Complaint: Chest pain Time Seen by Provider: 12/25/18 07:39 Source: patient, EMS and old records reviewed Mode of arrival: EMS Limitations: no limitations History of Present Illness HPI narrative: This is an 83-year-old male comes to the emergency department with complaint of abdominal pain radiating up into his chest and towards his neck. Patient states that it does not radiate to his back. He states that that has improved but still mildly present but his main complaint of pain is his left lower extremity. 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 Sure he takes morphine as well as Percocet oral ly for pain control. He states that his last dose was sometime overnight but likely many hours ago. Patient does take an aspirin 81 mg as well as Brilinta for vascular issues with his lower extremities. He states that Dr. khan there at did attempt to treat him is, this failed and he was referred to [facility] but they are treating his cancer 1st diagnosed in controlling his symptoms with pain medication at this time. The patient states that he does feel short of breath earlier and states that happens on and off. He has had cardiac stents x3. He states the pain started in his abdomen but then sort of moved into his chest. Patient has been nauseated. He has not vomited this morning but did yesterday 1 time. He has had normal bowel movements. He has some chronic issues with urinary urge incontinence. No painful urination. He has had some chills on and off but no clear-cut fevers. Related Data Home Medications Medication Instructions Recorded Confirmed Centrum Silver 1 tab PO DAILY #0 11/09/10 12/25/18 atorvastatin 40 mg PO BEDTIME 05/12/18 12/25/18 magnesium oxide 400 mg PO BID 09/03/18 12/25/18 Brilinta 90 mg PO BID 12/15/18 12/25/18 metoprolol tartrate 75 mg PO BID 12/15/18 12/25/18 nitroglycerin 0.4 mg sublingual 0.4 mg SL Q5-15M PRN 12/24/18 12/25/18 tablet acetaminophen 500 - 1,000 mg PO Q6H PRN 12/25/18 12/25/18 aspirin 325 mg PO DAILY 12/25/18 12/25/18 oxycodone-acetaminophen 2 tab PO Q4-6H PRN 12/25/18 12/25/18 Previous Rx's Medication Instructions Recorded gabapentin 300 mg capsule 300 mg PO BEDTIME #30 cap 09/26/18 isosorbide mononitrate ER 30 mg 30 mg PO DAILY #30 tab 09/26/18 tablet,extended release 24 hr lisinopril 5 mg PO DAILY #30 tab 12/16/18 morphine [MS Contin] 15 mg PO Q8H 30 Days #90 tab 12/17/18 metoclopramide 5 mg tablet 5 mg PO QACHS #30 tab 12/24/18 omeprazole 20 mg capsule,delayed 20 mg PO DAILY #30 cap 12/24/18 release Allergies Allergy/AdvReac Type Severity Reaction Status Date / Time codeine [CODEINE] Allergy Unknown EYES RED, Verified 12/24/18 14:23 PUFF UP Review of Systems Review of Systems ROS Unobtainable: All systems reviewed & are unremarkable except as noted in HPI and below Constitutional Reports chills, Denies fever(s), Denies lethargy and Denies weakness Cardiovascular Reports chest pain, Reports chest pain at rest, Denies diaphoresis, Denies syncope, Reports edema (Left leg), Denies irregular heart rhythm, Denies lightheadedness, Denies palpitations, Reports dyspnea (Intermittent) and Denies orthopnea Respiratory Denies change in phlegm color, Denies chest congestion, Denies cough, Reports dyspnea (Intermittent) and Denies wheezing Gastrointestinal Gastrointestinal: Reports abdominal pain, Denies change in bowel habits, Denies diarrhea, Reports nausea and Reports vomiting (x1 yesterday) Genitourinary Denies hematuria, Denies dysuria, Denies flank pain, Reports urinary frequency, Denies urinary hesitancy, Reports urinary incontinence and Denies urinary urgency Musculoskeletal Denies back pain Integumentary/Breasts Denies erythema and Reports sores Neurologic Denies syncope and Denies weakness Endocrine Denies palpitations Allergic/Immunologic Denies wheezing [facility] Medical History (Updated 12/25/18 @ 18:53 by Rebekah Callahan DO) Legally blind (Chronic) Diabetes type 2, controlled (Chronic) Acute dehydration (Acute) Symptomatic anemia (Acute) 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 (Acute) Hearing loss (Chronic Unknown) Hyperlipemia (Chronic Unknown) Diabetic neuropathy (Chronic Unknown) Coronary artery disease (Chronic Unknown) Hypertension (Chronic Unknown) Heart attack (Acute) Peripheral arterial disease (Acute) Surgical History (Updated 12/25/18 @ 18:53 by Rebekah Callahan DO) Hx of percutaneous transluminal coronary angioplasty (Chronic) S/P coronary artery stent placement (Acute) Status post eye surgery Family History (Updated 12/25/18 @ 18:54 by Rebekah Callahan DO) Father CVA (cerebral vascular accident) Mother CVA (cerebral vascular accident) Brother Congestive heart failure Social History household members: spouse Smoking Status: Former smoker Tobacco: How many years used: 35 alcohol intake: never Social History household members: spouse Smoking Status: Former smoker Tobacco: How many years used: 35 alcohol intake: never Exam Narrative Exam Narrative: GENERAL: Alert and oriented x three, thin elderly appearing male in moderate distress HEENT: Head normocephalic, atraumatic, EOMI, pupils reactive, face symmetric, moist mucous membranes NECK: Supple, full range of motion CARDIOVASCULAR: Regular rate and rhythm without murmurs, rubs or gallops. RESPIRATORY: Breath sounds equal bilaterally, no wheezes rales or rhonchi. ABDOMEN: Soft, nontender. Normoactive bowel sounds all 4 quadrants. No guarding or rebound, rigidity, no mass. Nondistended. : No CVA tenderness EXTREMITIES: Normal range of motion, no clubbing. Patient has edema of the left lower extremity with open wound on the medial malleoli. Leg is slightly erythematous in comparison to the right. The patient is tender to even light touch to the area. Patient has cap refill less than 2 seconds in all 10 toes. Sensation intact throughout. NEUROLOGICAL: Cranial nerves II through XII grossly intact. Moving all extremit ies SKIN: Warm, dry, no petechiae, no rashes or lesions. Initial Vital Signs Initial Vital Signs: Vital Signs Temperature 98.1 F 12/25/18 07:32 Pulse Rate 128 H 12/25/18 07:32 Respiratory Rate 21 12/25/18 07:32 Blood Pressure 158/65 H 12/25/18 07:32 Pulse Oximetry 98 12/25/18 07:32 Course Orders Ordered: ED Orders 12/25/18 10:12 CT angio chest abdomen pelvis Stat 12/25/18 10:20 EKG-12 Lead Routine 12/25/18 10:30 Troponin & CK Cardiac Panel Stat 12/25/18 15:41 Consult to Dietitian, Adult Routine 12/25/18 17:47 EKG-12 Lead Stat 12/25/18 18:00 Urinalysis and Microscopic Stat 12/25/18 18:35 Magnesium Stat Potassium Stat Troponin & CK Cardiac Panel Stat 12/25/18 18:37 Respiratory Panel (Film Array) Stat Aspirin (Aspirin) 325 mg PO DAILY [facility] Atorvastatin Calcium (Lipitor) 40 mg PO BEDTIME EDITA Gabapentin (Neurontin) 300 mg PO BEDTIME [facility] Potassium Chloride 60 meq/ (Sodium Chloride) 530 mls @ 88.333 mls/hr IV NOW ONE Stop: 12/26/18 00:40 Isosorbide Mononitrate (Imdur) 30 mg PO DAILY [facility] Lisinopril (Zestril) 5 mg PO DAILY [facility] Metoclopramide HCl (Reglan) 5 mg PO ACHS [facility] Metoprolol Tartrate (Lopressor) 75 mg PO BID [facility] Morphine Sulfate (Morphine) 4 mg IV Q15MIN PRN PRN Reason: Chest Pain Morphine Sulfate (Ms Contin) 15 mg PO Q8H [facility] Nitroglycerin (Nitrostat) 0.3 mg SL [id number] EDITA Ticagrelor [Brilinta (] 90 Mg) 90 mg PO BID [facility] Ondansetron HCl (Zofran) 4 mg IV Q4HR PRN PRN Reason: Nausea And Vomiting Last Admin: 12/25/18 18:06 Dose: 4 mg Oxycodone/Acetaminophen (Percocet 5/325) 2 tab PO Q4H PRN PRN Reason: pain Pantoprazole Sodium (Protonix) 20 mg PO DAILY EDITA Discontinued Medications Aspirin (Aspirin Chew) 324 mg PO NOW ONE Stop: 12/25/18 07:41 Last Admin: 12/25/18 07:57 Dose: 324 mg Sodium Chloride (Normal Saline 0.9%) 1,000 mls @ 150 mls/hr IV CONT EDITA Last Infusion: 12/25/18 09:30 Dose: 25 mls/hr Infusion: 12/25/18 08:22 Dose: 999 mls/hr Admin: 12/25/18 07:58 Dose: 150 mls/hr Sodium Chloride (Normal Saline 0.9%) 1,000 mls @ 1,000 mls/hr IV BOLUS ONE Stop: 12/25/18 09:16 Last Admin: 12/25/18 08:39 Dose: Not Given Potassium Chloride 40 meq/ (Sodium Chloride) 520 mls @ 130 mls/hr IV NOW ONE Stop: 12/25/18 16:20 Last Infusion: 12/25/18 14:18 Dose: 130 mls/hr Admin: 12/25/18 12:48 Dose: 130 mls/hr Sodium Chloride (Normal Saline 0.9%) 1,000 mls @ 125 mls/hr IV CONT EDITA Last Admin: 12/25/18 16:56 Dose: 125 mls/hr Metoprolol Succinate (Toprol Xl) 75 mg PO NOW ONE Stop: 12/25/18 08:20 Last Admin: 12/25/18 10:05 Dose: Not Given Metoprolol Tartrate (Lopressor) 75 mg PO NOW ONE Stop: 12/25/18 08:24 Last Admin: 12/25/18 09:14 Dose: 75 mg Morphine Sulfate (Morphine) 4 mg IV NOW ONE Stop: 12/25/18 07:41 Last Admin: 12/25/18 07:57 Dose: 4 mg Morphine Sulfate (Morphine) 4 mg IV NOW ONE Stop: 12/25/18 12:21 Last Admin: 12/25/18 12:47 Dose: 4 mg Morphine Sulfate (Morphine) 4 mg IV Q2HR EDITA Last Admin: 12/25/18 18:41 Dose: Not Given Admin: 12/25/18 16:43 Dose: Not Given Nitroglycerin (Nitrostat) 0.4 mg SL NOW ONE Stop: 12/25/18 17:50 Last Admin: 12/25/18 17:52 Dose: 0.4 mg Ondansetron HCl (Zofran) 4 mg IV NOW ONE Stop: 12/25/18 07:41 Last Admin: 12/25/18 07:57 Dose: 4 mg Potassium Chloride (Potassium Chloride) 40 meq PO NOW ONE Stop: 12/25/18 08:16 Last Admin: 12/25/18 09:14 Dose: 40 meq Vital Signs - 8 hr 12/25/18 11:40 12/25/18 12:21 12/25/18 13:43 Temperature Pulse Rate 94 H 87 81 Respiratory Rate 17 16 15 Blood Pressure Blood Pressure [Left Arm] 125/50 L 143/63 H 127/43 L Pulse Oximetry 93 98 96 12/25/18 14:25 12/25/18 16:12 12/25/18 17:52 Temperature 98.4 F 98.5 F Pulse Rate 81 83 79 Respiratory Rate 16 20 Blood Pressure 136/54 L 140/70 138/67 Blood Pressure [Left Arm] Pulse Oximetry 97 12/25/18 18:36 Temperature Pulse Rate Respiratory Rate Blood Pressure 119/63 Blood Pressure [Left Arm] Pulse Oximetry MDM - Chest Pain Lab Data Attestation: I reviewed the patient's lab results. Result diagrams: 12/25/18 07:10 12/25/18 18:35 Lab Results 12/25/18 12/25/18 12/25/18 Range/Units 07:10 07:10 07:10 WBC 3.5 L (4.5-11.0) X10^3/uL RBC 4.37 L (4.5-5.9) X10^6/uL Hgb 13.8 (13.5-17.5) g/dL Hct 40.4 L (41-53) % MCV 92.3 (80-100) fL MCH 31.5 (26-34) PG MCHC 34.1 (30-36) % RDW 16.7 H (11.6-14.8) % Plt Count 118 L (150-400) X10^3/uL Neut % (Auto) Not Reportable Lymph % (Auto) Not Reportable Burt % (Auto) Not Reportable Eos % (Auto) Not Reportable Baso % (Auto) Not Reportable Lymph # (Auto) Not Reportable Burt # (Auto) Not Reportable Baso # (Auto) Not Reportable Total Counted 100 Seg Neutrophils % 63.0 (38-70) % Band Neutrophils % 2.0 L (3-7) % Lymphocytes % (Manual) 7.0 L (25-45) % Atypical Lymphs % 3.0 H ( - 0) % Monocytes % (Manual) 23.0 H (2-11) % Eosinophils % (Manual) 1.0 L (2-4) % Metamyelocytes % 1.0 H (-0) % Neutrophils # (Manual) 2275 L (8514-9990) /uL RBC Morphology See below Anisocytosis 1+ H PT 13.5 H (10.1-12.7) SECONDS INR 1.2 (0.9-1.3) APTT 40 H (26.4-36.2) SECONDS Sodium 142 (137-145) mmol/L Potassium 2.9 L (3.4-5.1) mmol/L Chloride 100 (98-107) mmol/L Carbon Dioxide 28 (22-32) mmol/L BUN 12 (9-20) mg/dL Creatinine 0.70 (0.66-1.25) mg/dL Estimated GFR > 60.0 (>60) mL/min BUN/Creatinine Ratio 17.1 (6-22) Glucose 98 (80-110) mg/dL Calcium 8.5 (8.4-10.2) mg/dL Magnesium (1.6-2.3) mg/dL Total Bilirubin 1.1 (0.2-1.3) mg/dL AST 59 (17-59) IU/L ALT 38 (21-72) IU/L Alkaline Phosphatase 195 H (38-126) U/L Total Creatine Kinase 31 L (55-170) U/L CK-MB (CK-2) TNP CK-MB (CK-2) Rel Index TNP Troponin I 0.055 H (0.01-0.034) ng/mL B-Natriuretic Peptide 1480 H (<100) Total Protein 6.1 L (6.3-8.2) g/dL Albumin 3.3 L (3.5-5.0) g/dL Globulin 2.8 (1.7-4.1) g/dL Albumin/Globulin Ratio 1.2 (1.0-2.8) Lipase 58 (23-300) U/L Procalcitonin (<0.5) ng/mL Urine Color Urine Appearance Urine pH (4.5-8.0) Ur Specific [place] (1.000-1.035) Urine Protein (Negative) Urine Glucose (UA) (Negative) g/dL Urine Ketones (NEGATIVE) Urine Occult Blood (Negative) Urine Nitrate (Negative) Urine Bilirubin (NEGATIVE) Urine Urobilinogen (0.2) E.U./dL Ur Leukocyte Esterase (NEGATIVE) Urine RBC (0-5/HPF) Urine WBC (0-5/HPF) Amorphous Sediment Urine Bacteria (None) Ur Culture Indicated? 12/25/18 12/25/18 12/25/18 Range/Units 07:10 09:46 10:30 WBC (4.5-11.0) X10^3/uL RBC (4.5-5.9) X10^6/uL Hgb (13.5-17.5) g/dL Hct (41-53) % MCV (80-100) fL MCH (26-34) PG MCHC (30-36) % RDW (11.6-14.8) % Plt Count (150-400) X10^3/uL Neut % (Auto) Lymph % (Auto) Burt % (Auto) Eos % (Auto) Baso % (Auto) Lymph # (Auto) Burt # (Auto) Baso # (Auto) Total Counted Seg Neutrophils % (38-70) % Band Neutrophils % (3-7) % Lymphocytes % (Manual) (25-45) % Atypical Lymphs % ( - 0) % Monocytes % (Manual) (2-11) % Eosinophils % (Manual) (2-4) % Metamyelocytes % (-0) % Neutrophils # (Manual) (8979-7865) /uL RBC Morphology Anisocytosis PT (10.1-12.7) SECONDS INR (0.9-1.3) APTT (26.4-36.2) SECONDS Sodium (137-145) mmol/L Potassium (3.4-5.1) mmol/L Chloride (98-107) mmol/L Carbon Dioxide (22-32) mmol/L BUN (9-20) mg/dL Creatinine (0.66-1.25) mg/dL Estimated GFR (>60) mL/min BUN/Creatinine Ratio (6-22) Glucose (80-110) mg/dL Calcium (8.4-10.2) mg/dL Magnesium (1.6-2.3) mg/dL Total Bilirubin (0.2-1.3) mg/dL AST (17-59) IU/L ALT (21-72) IU/L Alkaline Phosphatase (38-126) U/L Total Creatine Kinase 24 L (55-170) U/L CK-MB (CK-2) TNP CK-MB (CK-2) Rel Index TNP Troponin I 0.051 H (0.01-0.034) ng/mL B-Natriuretic Peptide (<100) Total Protein (6.3-8.2) g/dL Albumin (3.5-5.0) g/dL Globulin (1.7-4.1) g/dL Albumin/Globulin Ratio (1.0-2.8) Lipase (23-300) U/L Procalcitonin 0.12 (<0.5) ng/mL Urine Color Urine Appearance Urine pH (4.5-8.0) Ur Specific [place] (1.000-1.035) Urine Protein (Negative) Urine Glucose (UA) (Negative) g/dL Urine Ketones (NEGATIVE) Urine Occult Blood (Negative) Urine Nitrate (Negative) Urine Bilirubin (NEGATIVE) Urine Urobilinogen (0.2) E.U./dL Ur Leukocyte Esterase (NEGATIVE) Urine RBC 1-5/hpf (0-5/HPF) Urine WBC 1-5/hpf (0-5/HPF) Amorphous Sediment 2+ Urine Bacteria Occasional (0-1) (None) Ur Culture Indicated? Specimen cultured 12/25/18 12/25/18 12/25/18 Range/Units 18:00 18:35 18:35 WBC (4.5-11.0) X10^3/uL RBC (4.5-5.9) X10^6/uL Hgb (13.5-17.5) g/dL Hct (41-53) % MCV (80-100) fL MCH (26-34) PG MCHC (30-36) % RDW (11.6-14.8) % Plt Count (150-400) X10^3/uL Neut % (Auto) Lymph % (Auto) Burt % (Auto) Eos % (Auto) Baso % (Auto) Lymph # (Auto) Burt # (Auto) Baso # (Auto) Total Counted Seg Neutrophils % (38-70) % Band Neutrophils % (3-7) % Lymphocytes % (Manual) (25-45) % Atypical Lymphs % ( - 0) % Monocytes % (Manual) (2-11) % Eosinophils % (Manual) (2-4) % Metamyelocytes % (-0) % Neutrophils # (Manual) (1056-1287) /uL RBC Morphology Anisocytosis PT (10.1-12.7) SECONDS INR (0.9-1.3) APTT (26.4-36.2) SECONDS Sodium (137-145) mmol/L Potassium 3.2 L (3.4-5.1) mmol/L Chloride (98-107) mmol/L Carbon Dioxide (22-32) mmol/L BUN (9-20) mg/dL Creatinine (0.66-1.25) mg/dL Estimated GFR (>60) mL/min BUN/Creatinine Ratio (6-22) Glucose (80-110) mg/dL Calcium (8.4-10.2) mg/dL Magnesium (1.6-2.3) mg/dL Total Bilirubin (0.2-1.3) mg/dL AST (17-59) IU/L ALT (21-72) IU/L Alkaline Phosphatase (38-126) U/L Total Creatine Kinase 27 L (55-170) U/L CK-MB (CK-2) TNP CK-MB (CK-2) Rel Index TNP Troponin I (0.01-0.034) ng/mL B-Natriuretic Peptide (<100) Total Protein (6.3-8.2) g/dL Albumin (3.5-5.0) g/dL Globulin (1.7-4.1) g/dL Albumin/Globulin Ratio (1.0-2.8) Lipase (23-300) U/L Procalcitonin (<0.5) ng/mL Urine Color Yellow Urine Appearance Clear Urine pH 7.0 (4.5-8.0) Ur Specific [place] 1.010 (1.000-1.035) Urine Protein Negative (Negative) Urine Glucose (UA) Negative (Negative) g/dL Urine Ketones 1+ H (NEGATIVE) Urine Occult Blood Negative (Negative) Urine Nitrate Negative (Negative) Urine Bilirubin Negative (NEGATIVE) Urine Urobilinogen 0.2 (0.2) E.U./dL Ur Leukocyte Esterase Negative (NEGATIVE) Urine RBC (0-5/HPF) Urine WBC (0-5/HPF) Amorphous Sediment Urine Bacteria (None) Ur Culture Indicated? 12/25/18 Range/Units 18:35 WBC (4.5-11.0) X10^3/uL RBC (4.5-5.9) X10^6/uL Hgb (13.5-17.5) g/dL Hct (41-53) % MCV (80-100) fL MCH (26-34) PG MCHC (30-36) % RDW (11.6-14.8) % Plt Count (150-400) X10^3/uL Neut % (Auto) Lymph % (Auto) Burt % (Auto) Eos % (Auto) Baso % (Auto) Lymph # (Auto) Burt # (Auto) Baso # (Auto) Total Counted Seg Neutrophils % (38-70) % Band Neutrophils % (3-7) % Lymphocytes % (Manual) (25-45) % Atypical Lymphs % ( - 0) % Monocytes % (Manual) (2-11) % Eosinophils % (Manual) (2-4) % Metamyelocytes % (-0) % Neutrophils # (Manual) (9997-4892) /uL RBC Morphology Anisocytosis PT (10.1-12.7) SECONDS INR (0.9-1.3) APTT (26.4-36.2) SECONDS Sodium (137-145) mmol/L Potassium (3.4-5.1) mmol/L Chloride (98-107) mmol/L Carbon Dioxide (22-32) mmol/L BUN (9-20) mg/dL Creatinine (0.66-1.25) mg/dL Estimated GFR (>60) mL/min BUN/Creatinine Ratio (6-22) Glucose (80-110) mg/dL Calcium (8.4-10.2) mg/dL Magnesium 1.3 L (1.6-2.3) mg/dL Total Bilirubin (0.2-1.3) mg/dL AST (17-59) IU/L ALT (21-72) IU/L Alkaline Phosphatase (38-126) U/L Total Creatine Kinase (55-170) U/L CK-MB (CK-2) CK-MB (CK-2) Rel Index Troponin I (0.01-0.034) ng/mL B-Natriuretic Peptide (<100) Total Protein (6.3-8.2) g/dL Albumin (3.5-5.0) g/dL Globulin (1.7-4.1) g/dL Albumin/Globulin Ratio (1.0-2.8) Lipase (23-300) U/L Procalcitonin (<0.5) ng/mL Urine Color Urine Appearance Urine pH (4.5-8.0) Ur Specific [place] (1.000-1.035) Urine Protein (Negative) Urine Glucose (UA) (Negative) g/dL Urine Ketones (NEGATIVE) Urine Occult Blood (Negative) Urine Nitrate (Negative) Urine Bilirubin (NEGATIVE) Urine Urobilinogen (0.2) E.U./dL Ur Leukocyte Esterase (NEGATIVE) Urine RBC (0-5/HPF) Urine WBC (0-5/HPF) Amorphous Sediment Urine Bacteria (None) Ur Culture Indicated? Urine Dip Bedside Urine Glucose Negative Bedside Urine Bilirubin - Negative Bedside Urine Ketone +++ 80 Urine Specific [place] 1.020 Bedside Urine Occult Blood - Negative Bedside Urine pH 6.0 Bedside Urine Protein - Negative Bedside Urine Urobilinogen - Negative Bedside Urine Nitrite - Negative Bedside Urine Leukocytes - Negative Esterase Imaging Data Chest x-ray: Radiologist's impression: [address] [address] XRay Report Signed Patient: Carlos Ortega EMR#: [id number] : 5Acct:[id number] Age/Sex: 83 / MDate of Service: 12/25/18 Loc: ED Accession Number: [id number] Procedure: XR chest 1V Ordering Provider: Aster Sharp D.O. PROCEDURE: XR CHEST 1V INDICATIONS: chest/abdominal pain TECHNIQUE: One view of the chest was acquired. COMPARISON: [facility], [place], [place] PET CT FUSION WHOLE BODY, 12/03/2018, 13:38. [facility], XR CHEST 1V, 12/15/2018, 16:04. [facility], , XR CHEST 1V, 05/12/2018, 13:58. FINDINGS: Surgical changes and devices: Central line from right sided approach extends into the atrial caval junction area. Lungs and pleura: Lungs are abnormal, with chronic asymmetric right greater than left apparent pleural plaquing and calcifications. This has been previously identified also by the CT scanning portion of PET/CT 12/03/18. No pleural effusions or pneumothorax. Mediastinum: Mediastinal contours appear normal. Heart size is normal. Bones and chest wall: No suspicious bony lesions. Overlying soft tissues appear unremarkable. IMPRESSION: Relatively large lung volumes, suspect prior smoking history. 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 No pleural mass or pleural effusion found. Port-A-Cath from right sided approach has its tip extending into the atriocaval junction. Source of pain not found. Dictated by: Greg Orta M.D. on 12/25/2018 at 8:38 Approved by: Greg Orta M.D. on 12/25/2018 at 8:43 Abdominal x-ray: Radiologist's impression: [address] [address] XRay Report Signed Patient: Carlos Ortega EMR#: [id number] : 5Acct:[id number] Age/Sex: 83 / MDate of Service: 12/25/18 Loc: ED Accession Number: [id number] Procedure: XR abdomen 1V Ordering Provider: Aster Sharp D.O. PROCEDURE: XR ABDOMEN 1V INDICATIONS: chest/abdominal pain TECHNIQUE: One view of the abdomen acquired. COMPARISON: None. FINDINGS: Surgical changes and devices: None. Bowel: Bowel gas pattern is normal. Soft tissues: No suspicious abdominal calcifications. Visualized solid organ contours appear normal in size. Bones: No suspicious bony lesions. IMPRESSION: Nonspecific bowel gas pattern, source of pain is not seen. Dictated by: Greg Orta M.D. on 12/25/2018 at 8:43 Approved by: Greg Orta M.D. on 12/25/2018 at 8:44 Venous US: Radiologist's impression: [address] [id number] Ultrasound Report Signed Patient: Carlos Ortega EMR#: [id number] : 5Acct:[id number] Age/Sex: 83 / MDate of Service: 12/25/18 Loc: ED Accession Number: [id number] Procedure: US periph venous low extrem lt Ordering Provider: Aster Sharp D.O. PROCEDURE: US PERIPH VENOUS LOW EXTREM LT INDICATIONS: LEFT LEG SWELLING TECHNIQUE: Real-time imaging, as well as color and pulse Doppler interrogation, were performed of the lower extremity deep veins from the inguinal ligament to the popliteal fossa. COMPARISON: None. FINDINGS: The common femoral, femoral and popliteal veins are normally compressible, and free of intraluminal thrombus. Color and pulse Doppler demonstrate normal phasic intraluminal flow. There is normal augmentation response to distal compression maneuver. IMPRESSION: No DVT found. Dictated by: Greg Orta M.D. on 12/25/2018 at 9:19 Approved by: Greg Orta M.D. on 12/25/2018 at 9:19 ECG Data Attestation: I personally reviewed and interpreted this ECG as follows: Prior ECG tracings: available for review Interpretation: Sinus tachycardia with a rate of 101 [place] 162 QRS of 133 and QTC of 401. Patient has slight ST depression in V2-V6. The right bundle branch block. Patient has prior EKG from 12/15/18 with similar changes. MDM Narrative Medical decision making narrative: 83-year-old male comes in patient's complaint of abdominal pain radiating to the chest and neck but patient has had some vomiting. He also is complaining quite a bit of lower extremity pain. He received aspirin 20 mg nitro with EMS upon arrival still had some chest pain but was feeling better. Lower extremity pain was still quite significant. He had not taken his morphine for several hours. White count is decreased at 3.5, hemoglobin appears stable 13.8, platelets are 118 although this appears consistent with priors over the last month. Patient has elevated monocytes and atypical lymphocytes. Coags show a PTT of 40. Is low at 2.9 with otherwise normal electrolytes and renal function. Alk-phos is elevated but appears pretty similar to his priors. His troponin is 0.055. He has had negatives as well as indeterminate in the past. CK-MB is [place] P. BNP is 14 80 which is elevated from a 7 800 that he was earlier in December. Procalcitonin is 0.12. Patient's lower extremity pain is still present but he is otherwise able to rest. Discussed his case with his equipment operat0r Dr. Ayon and they recommend repeat troponin at the 3 hour carmen and additional imaging for his risk factors. If elevated troponin transfer to [facility], if not elevating could observe here. Patient pain is better controlled, he could not keep down oral potassium and started on K-rider. Plan for admission for observation to Dr. Callahan for hypokalemia 2nd vomiting. Although patient BNP is elevated he looks clinically dry so continue to give some slow fluids. Discharge Plan Departure Patient Disposition: Admitted as Observation Clinical Impression: Hypokalemia, Vomiting Discharge Date/Time: 12/25/18 14:22 Interventions: ED Discharge Assessment Last Done: 12/25/18 14:21 Referrals: Kristie Sage DO [Primary Care Provider] - Admit Date/Time: 12/25/18 14:06 Admit Provider: Rebekah Callahan
[2018-12-25 07:57] LABS: INR 1.2 (0.9-1.3); Prothrombin Time 13.5 SECONDS (10.1-12.7)
[2018-12-25] MEDS: ONDANSETRON 4 MG/2 ML INJ IV ×2 (07:57→18:06)
[2018-12-25] MEDS: MORPHINE 4 MG/ML INJ IV ×2 (07:57→12:47)
[2018-12-25] MEDS: ASPIRIN 81 MG CHEW TAB 324 MG PO (07:57)
[2018-12-25] MEDS: SODIUM CHLORIDE 0.9% 1,000 ML 150 ML IV (07:58)
[2018-12-25 07:59] LABS: PTT Partial Thromboplastin Tim 40 SECONDS (26.4-36.2)
[2018-12-25 08:00] LABS: Alanine Aminotransferase 38 IU/L (21-72); Albumin 3.3 g/dL (3.5-5.0); Albumin Globulin Ratio 1.2 (1.0-2.8); Alkaline Phosphatase 195 U/L (38-126); Aspartate Aminotransferase 59 IU/L (17-59); BUN Creatinine Ratio 17.1 (6-22); Bilirubin Total 1.1 mg/dL (0.2-1.3); Blood Urea Nitrogen 12 mg/dL (9-20); Calcium 8.5 mg/dL (8.4-10.2); Carbon Dioxide 28 mmol/L (22-32); Chloride 100 mmol/L (98-107); Creatine Kinase 31 U/L (55-170); Estimated Glomerular Filt Rate > 60.0 mL/min (>60); Globulin 2.8 g/dL (1.7-4.1); Glucose 98 mg/dL (80-110); HEMOLYSIS 16 (0-50); Hematocrit 40.4 % (41-53); Hemoglobin 13.8 g/dL (13.5-17.5); Lipase 58 U/L (23-300); Mean Corpuscular HGB Conc 34.1 % (30-36); Mean Corpuscular Hemoglobin 31.5 PG (26-34); Mean Corpuscular Volume 92.3 fL (80-100); Platelet Count 118 X10^3/uL (150-400); Potassium 2.9 mmol/L (3.4-5.1); Red Blood Cell Count 4.37 X10^6/uL (4.5-5.9); Red Cell Distribution Width 16.7 % (11.6-14.8); Sodium 142 mmol/L (137-145); Total Protein 6.1 g/dL (6.3-8.2); White Blood Cell Count 3.5 X10^3/uL (4.5-11.0)
[2018-12-25 08:02] LABS: Add Manual Diff / Slide Review YES
[2018-12-25 08:12] LABS: Troponin I 0.055 ng/mL (0.01-0.034)
[2018-12-25 08:14] LABS: Procalcitonin 0.12 ng/mL (<0.5)
[2018-12-25 08:15] LABS: B Type Natriuretic Peptide 1480 (<100)
[2018-12-25 08:26] LABS: Neutrophils Absolute Manual 2275 /uL (3000-5900); Total Cells Counted 100
[2018-12-25 08:29] LABS: Anisocytosis 1+
[2018-12-25] MEDS: METOPROLOL IR 25 MG TABLET 75 MG PO (09:14)
[2018-12-25] MEDS: POTASSIUM CHLORIDE 20 MEQ/15 ML UDC 40 MEQ PO (09:14)
--- NOTE | 2018-12-25 10:12 | DI.CT.S_ITS ---
PROCEDURE: CT ANGIO CHEST ABDOMEN PELVIS INDICATIONS: abd pain, radiates to chest, Lymphoma, vomiting TECHNIQUE: Precontrast 5 mm thick sections acquired from the lung apices to the iliac crests. After the administration of intravenous contrast, 2.5 mm thick sections again acquired from the lung apices to the iliac crests. Maximum intensity projection (MIP) oblique sagittal and coronal reformats were then acquired. For radiation dose reduction, the following was used: automated exposure control. COMPARISON: None. FINDINGS: Image quality: Excellent. AORTA: Intramural hematoma: Absent. Maximum hematoma thickness: Not applicable Focal contrast enhancement: Intramural blood pool (< 2 mm neck or imperceptible communication with aortic lumen): Absent. Ulcer-like projection (broad communication with aortic lumen > 3 mm): Absent. Dissection: Absent Hockley classification: Not applicable Maximum aortic diameter: 3.4 cm, ascending aorta. cm. [If Husam A dissection, > 5.0 cm has a poorer prognosis. If Hockley B dissection, > 4.0 cm has a poorer prognosis.] Periaortic hematoma: Absent. CHEST: Lungs and pleura: No acute airspace opacities. No pleural effusions or pneumothorax. Central and peripheral airways are patent and normal in caliber. Pleural plaquing and calcifications. 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 Mediastinum: Heart size is normal. No pericardial effusion. No mediastinal or hilar adenopathy by size criteria. Central pulmonary arteries are normal in size. Esophagus is normal in caliber. No hiatal hernias. No pulmonary embolus suspected. Bones and chest wall: No axillary adenopathy by size criteria. Thyroid gland appears normal. No suspicious bony lesions. No vertebral body compression fractures. ABDOMEN: Vasculature: Celiac trunk and mesenteric arteries are patent. Renal arteries are also patent. Solid organs: Liver is normal in size and enhancement. Gallbladder appears normal. Biliary system is non dilated. Pancreas enhances normally. Spleen is normal in size and enhancement. No adrenal nodules. Both kidneys are normal in size and enhancement, without hydronephrosis. Peritoneum and bowel: No free fluid or air. Bowel loops are normal in caliber and wall thickness. Nodes and vessels: No retroperitoneal or mesenteric adenopathy by size criteria. Inferior vena cava is normal in morphology. No pulmonary embolus is found. Miscellaneous: No ventral hernias. PELVIS: Genitourinary: Bladder wall thickness is normal. Miscellaneous: No inguinal hernias or adenopathy. No ventral hernias. Bones: No suspicious bony lesions. No vertebral body compression fractures. IMPRESSION: 1. No pulmonary embolus seen. 2. No evidence of aortic aneurysm, dissection, or periaortic hematoma. 3. A source of abdominal pain is not seen. No adenopathy is found. 4. Relatively extensive pleural plaquing with calcification indicates likelihood of significant prior asbestos related pleural disease. Dictated by: Greg Orta M.D. on 12/25/2018 at 10:48 Approved by: Greg Orta M.D. on 12/25/2018 at 10:57
[2018-12-25 10:46] LABS: RBC Urine 1-5/HPF (0-5/HPF); WBC Urine 1-5/HPF (0-5/HPF)
[2018-12-25 10:47] LABS: Amorphous Sediment Urine 2+; Bacteria Urine Occasional (0-1); Culture Indicated Urine Specimen Cultured
[2018-12-25 11:01] LABS: Creatine Kinase 24 U/L (55-170)
[2018-12-25 11:14] LABS: Troponin I 0.051 ng/mL (0.01-0.034)
[2018-12-25] MEDS: POTASSIUM CHLORIDE 40 MEQ in SODIUM CHLORIDE 0.9% 500 ML 130 ML IV (12:48)
--- NOTE | 2018-12-25 13:50 | PC.NURSE ---
report called to roddy marvin
[2018-12-25] MEDS: SODIUM CHLORIDE 0.9% 1,000 ML 125 ML IV (16:56)
[2018-12-25] MEDS: NITROGLYCERIN 0.4 MG SL TAB SL (17:52)
--- NOTE | 2018-12-25 18:29 | P.HP_ITS ---
History of Present Illness Date Patient Seen: 12/25/18 Chief complaint: Chest pain Narrative: Carlos Ortega is an 83-year-old male with a past medical history significant for CAD status post RI and coronary stenting x3, hypertension, hyperlipidemia, peripheral arterial disease with need for revascularization, and diffuse large B-cell lymphoma undergoing chemotherapy on Rituxan and Treanda who presented for chest pain radiating to neck. The patient reports that this morning he began to have abrupt onset substernal chest pain at rest that radiated up to his neck while lying in bed sleeping. He denies associated shortness of breath or diaphoresis. He endorses nausea and vomiting which has been occurring for the last 3 days that is presumably related to his recent cycle of chemotherapy. He recently completed his 4th cycle of Rituxan and Treanda for which he has tolerated well in the past. He denies upper respiratory tract symptoms including headache, rhinitis, nasal congestion, cough, or chest congestion. When the patient presented to the ED his potassium level was found to be significantly low at 2.9. He was hypertensive and tachycardic which improved with IV fluids. He reports his chest pain improved with nitroglycerin administration at home prior to arrival to the hospital. He reports he has not taken any of his medications the last 3 days due to the nausea and vomiting which include Brilinta for recent stent placement and Imdur for chronic angina. He continues to have chest pain upon my interview that is throbbing in quality, non-radiating, with associated nausea and his chest pain resolved with sublingual nitro. Ordered stat cardiac panel and potassium level. His EKG dem onstrated right bundle branch block with diffuse ST depression that is unchanged from prior EKG's. He was admitted for further workup. Patient History Medical History (Updated 12/25/18 @ 18:53 by Rebekah Callahan DO) Legally blind (Chronic) Diabetes type 2, controlled (Chronic) Acute dehydration (Acute) Symptomatic anemia (Acute) 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 (Acute) Hearing loss (Chronic Unknown) Hyperlipemia (Chronic Unknown) Diabetic neuropathy (Chronic Unknown) Coronary artery disease (Chronic Unknown) Hypertension (Chronic Unknown) Heart attack (Acute) Peripheral arterial disease (Acute) Surgical History (Updated 12/25/18 @ 18:53 by Rebekah Callahan DO) Hx of percutaneous transluminal coronary angioplasty (Chronic) S/P coronary artery stent placement (Acute) Status post eye surgery Family History (Updated 12/25/18 @ 18:54 by Rebekah Callahan DO) Father CVA (cerebral vascular accident) Mother CVA (cerebral vascular accident) Brother Congestive heart failure Social History household members: spouse Smoking Status: Former smoker Tobacco: How many years used: 35 alcohol intake: never Family & Social History Social History: household members spouse Prior Living Arrangements House Safety & Behavioral: Feels Safe in Current Yes Environment Been Physically Hurt or No Threatened By a Person Tobacco & Substance use: Smoking Status Former smoker, 1.5 ppd x 35 years alcohol intake never Substance Use Type does not use Meds Home Medications Medication Instructions Recorded Confirmed Type Centrum Silver 1 tab PO DAILY #0 11/09/10 12/25/18 History atorvastatin 40 mg PO BEDTIME 05/12/18 12/25/18 History magnesium oxide 400 mg PO BID 09/03/18 12/25/18 History gabapentin 300 mg capsule 300 mg PO BEDTIME #30 cap 09/26/18 12/25/18 Rx isosorbide mononitrate ER 30 mg 30 mg PO DAILY #30 tab 09/26/18 12/25/18 Rx tablet,extended release 24 hr Brilinta 90 mg PO BID 12/15/18 12/25/18 History metoprolol tartrate 75 mg PO BID 12/15/18 12/25/18 History lisinopril 5 mg PO DAILY #30 tab 12/16/18 12/25/18 Rx morphine [MS Contin] 15 mg PO Q8H 30 Days #90 tab 12/17/18 12/25/18 Rx metoclopramide 5 mg tablet 5 mg PO QACHS #30 tab 12/24/18 12/25/18 Rx nitroglycerin 0.4 mg sublingual 0.4 mg SL Q5-15M PRN 12/24/18 12/25/18 History tablet omeprazole 20 mg capsule,delayed 20 mg PO DAILY #30 cap 12/24/18 12/25/18 Rx release acetaminophen 500 - 1,000 mg PO Q6H PRN 12/25/18 12/25/18 History aspirin 81 mg PO DAILY 12/25/18 12/25/18 History oxycodone-acetaminophen 2 tab PO Q4-6H PRN 12/25/18 12/25/18 History Allergies Allergy/AdvReac Type Severity Reaction Status Date / Time codeine [CODEINE] Allergy Unknown EYES RED, Verified 12/24/18 14:23 PUFF UP Review of Systems Review of Systems A 10 system comprehensive review of systems was conducted with the patient and found to be negative except as above in the History of Present Illness. Exam Vital Signs (past 8 hours): - 12/25/18 10:39 12/25/18 11:40 12/25/18 12:21 Temperature Pulse Rate 92 H 94 H 87 Respiratory Rate 11 L 17 16 Blood Pressure Blood Pressure [Left Arm] 139/65 125/50 L 143/63 H Pulse Oximetry 95 93 98 12/25/18 13:43 12/25/18 14:25 12/25/18 16:12 Temperature 98.4 F 98.5 F Pulse Rate 81 81 83 Respiratory Rate 15 16 20 Blood Pressure 136/54 L 140/70 Blood Pressure [Left Arm] 127/43 L Pulse Oximetry 96 97 12/25/18 17:52 Temperature Pulse Rate 79 Respiratory Rate Blood Pressure 138/67 Blood Pressure [Left Arm] Pulse Oximetry Oxygen Delivery Method Room Air Narrative Exam Narrative: General: Elderly gentleman sitting in bedside chair in no acute distress, appears chronically ill and uncomfortable, but otherwise appropriately interactive. HEENT: Normocephalic, atraumatic. External ears without defect. Pupils equal, round, and reactive to light. Legally blind. Anicteric sclerae, moist conjunctivae, and no lid lag. Oropharynx free of erythema and cobble stoning with moist mucosa. Neck: Supple with full range of motion. Mild jugular venous distension. No lymphadenopathy or thyromegaly. Cardiovascular: Diminished throughout but regular rhythm, mild tachycardia without murmurs, rubs, or gallops appreciated. Port on right side of anterior chest without surrounding erythema or edema. Pulmonary: Clear to auscultation bilaterally without crackles, wheezes, or rhonchi. Normal respiratory effort without use of accessory muscles. Abdomen: Soft, bowel sounds present, nontender, nondistended. No hepato splenomegaly or masses appreciated. Extremities: No clubbing. Mild bilateral lower extremity edema L>R with poor circulation and dependent erythema but without cyanosis or signs of infarction. Unable to palpate distal left lower extremity pulses. Delayed capillary refill of bilateral lower extremities L>R. 2 small left lower extremity ulcers which are chronic and do not appear to be infected. Bilateral lower extremity stasis dermatitis. Skin: Normal temperature, turgor, and texture; no subcutaneous nodules appreciated. Neurological: Cranial nerves grossly intact. Psychiatric: Normal mood and affect. Alert and oriented to person, place, and time. Objective Labs Result Diagrams: 12/26/18 04:10 12/26/18 04:10 Labs: Laboratory Results - last 24 hr 12/25/18 12/25/18 12/25/18 07:10 07:10 07:10 WBC 3.5 L RBC 4.37 L Hgb 13.8 Hct 40.4 L MCV 92.3 MCH 31.5 MCHC 34.1 RDW 16.7 H Plt Count 118 L Neut % (Auto) Not Reportable Lymph % (Auto) Not Reportable [place] % (Auto) Not Reportable Eos % (Auto) Not Reportable Baso % (Auto) Not Reportable Lymph # (Auto) Not Reportable [place] # (Auto) Not Reportable Baso # (Auto) Not Reportable Total Counted 100 Seg Neutrophils % 63.0 Band Neutrophils % 2.0 L Lymphocytes % (Manual) 7.0 L Atypical Lymphs % 3.0 H Monocytes % (Manual) 23.0 H Eosinophils % (Manual) 1.0 L Metamyelocytes % 1.0 H Neutrophils # (Manual) 2275 L RBC Morphology See below Anisocytosis 1+ H PT 13.5 H INR 1.2 APTT 40 H Sodium 142 Potassium 2.9 L Chloride 100 Carbon Dioxide 28 BUN 12 Creatinine 0.70 Estimated GFR > 60.0 BUN/Creatinine Ratio 17.1 Glucose 98 Calcium 8.5 Total Bilirubin 1.1 AST 59 ALT 38 Alkaline Phosphatase 195 H Total Creatine Kinase 31 L CK-MB (CK-2) TNP CK-MB (CK-2) Rel Index TNP Troponin I 0.055 H B-Natriuretic Peptide 1480 H Total Protein 6.1 L Albumin 3.3 L Globulin 2.8 Albumin/Globulin Ratio 1.2 Lipase 58 Procalcitonin Urine RBC Urine WBC Amorphous Sediment Urine Bacteria Ur Culture Indicated? 12/25/18 12/25/18 12/25/18 07:10 09:46 10:30 WBC RBC Hgb Hct MCV MCH MCHC RDW Plt Count Neut % (Auto) Lymph % (Auto) [place] % (Auto) Eos % (Auto) Baso % (Auto) Lymph # (Auto) [place] # (Auto) Baso # (Auto) Total Counted Seg Neutrophils % Band Neutrophils % Lymphocytes % (Manual) Atypical Lymphs % Monocytes % (Manual) Eosinophils % (Manual) Metamyelocytes % Neutrophils # (Manual) RBC Morphology Anisocytosis PT INR APTT Sodium Potassium Chloride Carbon Dioxide BUN Creatinine Estimated GFR BUN/Creatinine Ratio Glucose Calcium Total Bilirubin AST ALT Alkaline Phosphatase Total Creatine Kinase 24 L CK-MB (CK-2) TNP CK-MB (CK-2) Rel Index TNP Troponin I 0.051 H B-Natriuretic Peptide Total Protein Albumin Globulin Albumin/Globulin Ratio Lipase Procalcitonin 0.12 Urine RBC 1-5/hpf Urine WBC 1-5/hpf Amorphous Sediment 2+ Urine Bacteria Occasional (0-1) Ur Culture Indicated? Specimen cultured Assessment & Plan Assessment & Plan narrative: Carlos Ortega is an 83-year-old male with a past medical history significant for CAD status post RI and coronary stenting x3, hypertension, hyperlipidemia, peripheral arterial disease with need for revascularization, and diffuse large B-cell lymphoma undergoing chemotherapy on Rituxan and Treanda who presented for chest pain radiating to neck. 1. Acute NSTEMI, present on admission. Active. -Patient presented with left substernal chest pain at rest radiating to neck with associated nausea relieved with sublingual nitroglycerin. Concern for occlusion of cardiac stents as patient has not been able to take his medications for at least 3 days. -Cardiac risk factors include: CAD status post recent RI and stent placement, hypertension, hyperlipidemia, diabetes mellitus type 2, PAD, significant family history, and former smoker. -EKG demonstrated normal sinus rhythm with RBBB and diffuse ST depression which is unchanged from previous EKGs. -Initial troponin 0.055 and trended down to 0.51. Repeat troponin and cardiac panel due to recurrent chest pain which demonstrated elevation of troponin to 0.069. Continue to trend serial troponin every 6 hours. -Cardiology consulted by ED physician and recommended admission for electrolyte replacement and monitoring of chest pain and troponin. Will plan to have nighttime provider contact cardiology for further recommendations regarding management of recurrent chest pain, now rising troponin and concern for occlusion of recent stent placement. Consider heparin gtt. -Ordered echocardiogram, pending. -Plan to control nausea and give medications only for now. Continue aspirin 81 mg daily, atorvastatin 40 mg daily at bedtime, metoprolol tartrate 75 mg twice daily, Brilinta 90 mg twice daily, and Imdur 30 mg daily. Patient is NPO. 2. Nausea and vomiting with electrolyte derrangement and dehydration, present on admission. Active. -Secondary to chemotherapy. Respiratory viral illness ruled out with respiratory viral PCR negative. -Plan to control nausea and give PO medications only for now. NPO. -Continue Zofran 4 mg IV every 4 hours as needed for nausea and metoclopramide 5 mg 3 times daily with meals which was a new addition to his antiemetic regimen. If continues to have persistent nausea would start lorazepam as needed. -Initial potassium level 2.9 and magnesium level 1.3. Received potassium chloride 40 mEq PO which induced vomiting. Then received potassium chloride 40 mEq IV x1 with now potassium level 3.2. Ordered potassium chloride 60 mEq x1 and magnesium sulfate 2 g x1. Continue to monitor closely and replete electrolyt es with goal K+ > 4.0 and Mg+ > 2.0. -Received 2 L NS bolus x1 in ED. He will receive another 1 L in fluid with electrolyte repletion. Will hold on further IV fluids due to cardiac status and history of CHF. -Placed patient NPO for now until nausea controlled then will advance diet slowly. 3. Pancytopenia, present on admission. Stable. -Secondary to chemotherapy . -Initial white count was 3.5, platelets 118 and hemoglobin 13.8 and likely hemoconcentrated due to dehydration with nausea and vomiting. -Continue to monitor CBC closely. 4. 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 Stable. -Patient is followed and managed by Dr. Levin of Oncology. -Patient previously went through four cycles of R-CHOP and involved field radiation finishing in June 2014. The patient then had relapse in September of 2018 and is undergoing chemotherapy with Treanda and Rituxan with 4 cycles thus far. Recent repeat PET scan is promising. 5. Chronic left lower extremity ulcer, present on admission. Stable. -Patient previously followed by wound care and was lost to follow-up due to multiple medical issues including: RI with stent placement, recurrence of large B-cell lymphoma, and need for revascularization of lower extremities which has not yet been pursued. -Chronic ulcer on left posterior leg does not appear infected. -Consulted wound care, pending. Patient has not followed-up with wound care as of yet. 6. Peripheral arterial disease with claudication and hyperlipidemia, chronic, present on admission. Presumed stable. -Plan to control nausea and give medications only for now. Continue aspirin 81 mg daily, atorvastatin 40 mg daily at bedtime, Brilinta 90 mg twice daily, and Imdur 30 mg daily. Continue pain management due to claudication with gabapentin 300 mg daily at bedtime, MS Contin 15 mg every 12 hours, and oxycodone 2 tabs every 4-6 hours as needed for breakthrough pain. -The patient reports he needs revascularization of lower extremities which has been deferred during his cancer treatment. His lower extremity PAD will need to be addressed in the near future as his claudication is worsening bilaterally and likely due to diminished circulation and not the diffuse large B-cell lymphoma of only the left leg. 7. Hypertension, chronic, present on admission. Stable. -Continue metoprolol tartrate 75 mg twice daily and Imdur 30 mg daily. 8. History of diabetes mellitus type II. Now in remission. -Last hemoglobin A1c normal at 5.3% 12/2018. -Will advance diet as tolerated to carbohydrate consistent/heart healthy. -Continue monitoring per PCP. Code Status: Discussed code status in detail for which the patient would like to be DNR/DNI. He would reverse this for a procedure if necessary. DVT prophylaxis: Heparin gtt Patient is admitted under inpatient status with expected length of stay greater than 2 midnights due to severity of presenting symptoms, risk of adverse event, and complexity of treatment plan.
[2018-12-25 18:46] LABS: Bacteria Urine None Seen; RBC Urine None Seen (0-5/HPF)
[2018-12-25 18:48] LABS: Appearance Urine UA CLEAR; Bilirubin Urine UA NEGATIVE (NEGATIVE); Color Urine UA YELLOW; Glucose Urine UA NEGATIVE (Negative); Ketones Urine UA 1+ (NEGATIVE); Leukocyte Esterase Urine UA NEGATIVE (NEGATIVE); Nitrite Urine UA NEGATIVE (Negative); Occult Blood Urine UA NEGATIVE (Negative); Protein Urine UA NEGATIVE (Negative); Urobilinogen Urine UA 0.2 E.U./dL (0.2)
--- NOTE | 2018-12-25 18:49 | PC.NURSE ---
Addendum entered by Katie Emanuel R.N. 12/25/18 23:51: Patient resting comfortable in bed, no c/o chest pain, abdominal pain, or dizziness. Addendum entered by Katie Emanuel R.N. 12/25/18 21:47: Heparin infusion ordered at 2115. At 2148 awaiting for results of Coag studies, still pending. Addendum entered by Katie Emanuel R.N. 12/25/18 18:52: 1751: Patient c/o chest pain to left upper chest described as dull ache /[address] Callahan at bedside. STAT Ekg ordered, cardiac markers, and U/A. Order obtained for Nitro 0.4 SL. 175: Administered Nitroglycerin SL 0.4 BP 138/69 HR 79. 1756: Patient denies chest pain states it is a zero. BP 119/63. Patient continue on RA, O2 sat 95%. Patient laying in bed, resting. Brother Fernando at bedside providing supportive care. Original Note: Yazmin shift note: 1600 Patient awake and alert, in bed accompanied by Fernando (brother) and (Ping). Denies chest pain, nausea, SOB, abdominal pain. C/O tenderness to LLE to light touch. Family assisted with further medical information. Carlos goes by Piter is GAL[place] and legally blind. Uses call light, high fall risk precautions maintained. Awaiting for Hospitals for additional admit orders.
[2018-12-25 18:54] LABS: HEMOLYSIS 18 (0-50); Potassium 3.2 mmol/L (3.4-5.1)
[2018-12-25 18:57] LABS: Creatine Kinase 27 U/L (55-170)
[2018-12-25 18:58] LABS: Magnesium 1.3 mg/dL (1.6-2.3)
[2018-12-25 19:10] LABS: Troponin I 0.069 ng/mL (0.01-0.034)
[2018-12-25] MEDS: POTASSIUM CHLORIDE 60 MEQ in SODIUM CHLORIDE 0.9% 500 ML 88.333 ML IV (19:17)
[2018-12-25 19:18] LABS: Squamous Epithelial Cell Urine 0-1 /HPF (0-5/HPF); WBC Urine 0-1/HPF (0-5/HPF)
[2018-12-25 19:19] LABS: Culture Indicated Urine Cult Not Indicated
[2018-12-25] MEDS: MORPHINE ER 15 MG TABLET PO (19:28)
[2018-12-25] MEDS: ATORVASTATIN 20 MG TABLET 40 MG PO (19:29)
[2018-12-25] MEDS: GABAPENTIN 300 MG CAPSULE PO (19:29)
[2018-12-25] MEDS: METOPROLOL IR 50 MG TABLET 75 MG PO (19:29)
[2018-12-25] MEDS: METOCLOPRAMIDE HCL 5 MG TABLET PO (19:31)
[2018-12-25] MEDS: MAGNESIUM SULFATE 2 GM/50 ML PIGGYBACK IV (19:59)
[2018-12-25 20:31] LABS: Adenovirus Not Detected (Not Detect); Bordetella pertussis Not Detected (Not Detect); Chlamydophila pneumoniae Not Detected (Not Detect); Coronavirus 229E Not Detected (Not Detect); Coronavirus HKU1 Not Detected (Not Detect); Coronavirus NL 63 Not Detected (Not Detect); Coronavirus OC43 Not Detected (Not Detect); Human Metapneumovirus Not Detected (Not Detect); Human Rhinovirus/Enterovirus Not Detected (Not Detect); Influenza A Not Detected (Not Detect); Influenza B Not Detected (Not Detect); Mycoplasma pneumoniae Not Detected (Not Detect); Parainfluenza Virus 1 Not Detected (Not Detect); Parainfluenza Virus 2 Not Detected (Not Detect); Parainfluenza Virus 3 Not Detected (Not Detect); Parainfluenza Virus 4 Not Detected (Not Detect); Respiratory Syncytial Virus Not Detected (Not Detect)
[2018-12-25] MEDS: Ticagrelor [Brilinta] 90 MG 90 EACH PO (20:32)
[2018-12-25] MEDS: NITROGLYCERIN 0.4 MG PATCH TOP (20:32)
--- NOTE | 2018-12-25 21:00 | PM.EVENT ---
Date Patient Seen: 12/25/18 Time Patient Seen: 19:45 Report is received from the day shift hospitalist noting patient's unstable cardiac status and recurrent episodes of chest pain prior to arrival and again following admission. Both episodes will resolve with nitroglycerin sublingual however the patient has persistent elevated troponin most recent is 0.069. The patient is evaluated and found to be alert responsive, states he does not feel well but denies chest pain and has no shortness of breath cough or wheezing. He reports no nausea and is not diaphoretic. 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 Per report he has 2 vessels yet needing stenting but were unable to complete related to the amount of contrast. The patient has cardiac risk factors of hypertension, hyperlipidemia type 2 diabetes. The patient is undergoing chemotherapy for B-cell lymphoma his las round of chemo administered on 12/18. Subsequently he had nausea and vomiting for 3 days during which time he had not taken his Brilinta or Imdur. Non STEMI KS -potassium and magnesium are being repleted. -repeat 12 lead EKG is obtained finding sinus rhythm with continued diffuse ST depression with T-wave inversion anteriorly, ischemic changes unchanged from EKG obtained at 10:00 a.m. this morning. -nitro patch 0.4 ordered -consulted Dr. Slater, cardiology. Discussed the patient's presentation with elevated troponin electrolyte repletion and reviewed EKG and current vital signs. Patient's history reviewed. He felt the patient will need an angiogram but felt it was not urgent S the patient was pain free with nitroglycerin. Noted Brilinta is being restarted and he recommended heparin drip. -will follow cardiac enzymes serially, and recheck electrolytes.
[2018-12-25 21:50] LABS: PTT Partial Thromboplastin Tim 37 SECONDS (26.4-36.2)
[2018-12-25] MEDS: HEPARIN 5,000 UNIT/ML VIAL 4000 UNIT IV (21:56)
[2018-12-25] MEDS: HEPARIN DRIP 25,000 UNIT/500 ML IV.SOLN 15.024 UNIT IV (21:57)
--- NOTE | 2018-12-25 22:13 | DI.ECHO.S_ITS ---
[place] [facility]---------+ [facility] +---------+ : : [address] : [address] : : : : [id number] : : : : Phone: [phone]+ Echocardiogram Report + + :Name: CHANELLE WALLS Study Date: 12/26/2018 Height: 68 in : :[facility] Exam Location: IS Weight: 138 lb : : Gender: Male BSA: 1.7 m2 : :: 1935 Age: 83 yrs BP: 139/57 mmHg: :Reason For Study: NSTEMI : : Performed By: Piter Magana : :Referring: RADHA GAVIN : + + Interpretation Summary The patient experienced a short run of wide QRS tachycardia with a rate of 194 beats per minute likely nonsustained ventricular tachycardia. The left ventricle is normal in size. The ejection fraction is estimated to be 60-65%. The right ventricle is normal in size and function. There is mild tricuspid regurgitation. The right ventricular systolic pressure is estimated to be at least 38 mmHg based on an estimated right atrial pressure of 3 mm Hg. 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 Consider NEREIDA to assess interatrial shunt. Procedure: A two-dimensional transthoracic echocardiogram with color flow and Doppler was performed. The study quality was technically good. There is no prior echocardiogram noted for this patient. The patient was in normal sinus rhythm during the exam. The patient experienced a short run of wide QRS tachycardia with a rate of 194 beats per minute likely nonsustained ventricular tachycardia. The patient had a bundle branch block rhythm during the exam. Left Ventricle: The left ventricle is normal in size. There is normal left ventricular wall thickness. There is no thrombus. The ejection fraction is estimated to be 60-65%. There are no focal wall motion abnormalities. Diastolic parameters suggest a pseudonormalization pattern, consistent with probable elevated filling pressures. Right Ventricle: The right ventricle is normal in size and function. Atria: The left atrium is moderately dilated. The right atrium is mildly dilated. 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 Mitral Valve: There is mild mitral annular calcification. There is systolic anterior motion of the chordal apparatus. The mitral valve leaflets are slightly calcified. Redundant elongated chordae are noted. There is trace mitral regurgitation. Aortic Valve: The aortic valve is trileaflet. The aortic valve opens well. The aortic valve is slightly calcified. There is discrete nodular thickening of the right coronary cusp. There is no aortic valve stenosis. No aortic regurgitation is present. Tricuspid Valve: The tricuspid valve is normal. There is mild tricuspid regurgitation. The right ventricular systolic pressure is estimated to be at least 38 mmHg based on an estimated right atrial pressure of 3 mm Hg. Pulmonic Valve: The pulmonic valve is not well seen, but is grossly normal. There is no pulmonic valvular regurgitation. Great Vessels: The aortic root is normal size. The dimensions of the ascending aorta are normal. The pulmonary artery is normal size. The IVC is of normal diameter and collapses greater than 50% with a sniff. This suggests a low right atrial pressure of 3 mm Hg. Pericardium/ Pleura There is no pericardial effusion. There is no pleural effusion. MMode/2D Measurements & Calculations LVIDd: 4.9 cm LVOT diam: 2.3 cm LVIDs: 3.0 cm Ao root diam: 3.2 cm FS: 38.9 % Aortic Jxn: 2.8 cm EPSS: 0.87 cm asc Aorta Diam: 3.3 cm IVSd: 0.92 cm LVPWd: 1.0 cm LV payne. diameter/BSA (cm/m^2): 2.8 LV sys. diameter/BSA (cm/m^2): 1.7 LA dimension: 3.3 cm RA long axis: 5.3 cm LA A2 area: 25.0 cm2 RA area: 21.2 cm2 LA A4 area: 22.6 cm2 RA vol: 71.4 ml LA length (vol): 6.1 cm RA : 40.9 ml/m2 LA vol: 78.6 ml IVC diam: 2.0 cm LA vol index: 45.0 ml/m2 Doppler Measurements & Calculations Ao V2 max: 132.4 cm/sec LVOT Max Chay: 72.0 cm/sec Ao V2 mean: 92.4 cm/sec LV V1 max P.1 mmHg Ao max P.0 mmHg LV V1 VTI: 15.6 cm Ao mean P.7 mmHg ALECIA(I,D): 2.4 cm2 Ao V2 VTI: 27.2 cm ALECIA(V,D): 2.3 cm2 sev ratio: 0.58 ALECIA indexed to BSA (cm^2/m^2): 1.4 MV E max chay: 73.5 cm/sec TR max chay: 297.1 cm/sec MV A max chay: 56.9 cm/sec TR max P.3 mmHg MV E/A: 1.3 PA V2 max: 104.2 cm/sec Med Peak E' Chay: 4.9 cm/sec PA V2 mean: 76.3 cm/sec E/E' med: 15.2 PA mean P.5 mmHg Lat Peak E' Chay: 6.8 cm/sec PA pr(Accel): 44.1 mmHg E/E' lat: 10.8 PA Accel Time: 0.08 sec E/e' average: 13.0 MV dec time: 0.21 sec SVLVOT): 64.9 ml Reading Physician:12:06 PM
[2018-12-26 00:13] LABS: Creatine Kinase 24 U/L (55-170)
[2018-12-26 00:26] LABS: Troponin I 0.071 ng/mL (0.01-0.034)
--- NOTE | 2018-12-26 00:53 | P.EN_ITS ---
Date Patient Seen: 12/25/18 Time Patient Seen: 19:45 Report is received from the day shift hospitalist noting patient's unstable cardiac status and recurrent episodes of chest pain prior to arrival and again following admission. Both episodes will resolve with nitroglycerin sublingual however the patient has persistent elevated troponin most recent is 0.069. The patient is evaluated and found to be alert responsive, states he does not feel well but denies chest pain and has no shortness of breath cough or wheezing. He reports no nausea and is not diaphoretic. 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 Per report he has 2 vessels yet needing stenting but were unable to complete related to the amount of contrast. The patient has cardiac risk factors of hypertension, hyperlipidemia type 2 diabetes. The patient is undergoing chemotherapy for B- cell lymphoma his las round of chemo administered on 12/18. Subsequently he had nausea and vomiting for 3 days during which time he had not taken his Brilinta or Imdur. Non STEMI [place] -potassium and magnesium are being repleted. -repeat 12 lead EKG is obtained finding sinus rhythm with continued diffuse ST depression with T-wave inversion anteriorly, ischemic changes unchanged from EKG obtained at 10:00 a.m. this morning. -nitro patch 0.4 ordered -consulted Dr. Slater, cardiology. Discussed the patient's presentation with elevated troponin electrolyte repletion and reviewed EKG and current vital signs. Patient's history reviewed. He felt the patient will need an angiogram but felt it was not urgent S the patient was pain free with nitroglycerin. Noted Brilinta is being restarted and he recommended heparin drip. -will follow cardiac enzymes serially, and recheck electrolytes.
[2018-12-26] MEDS: MORPHINE ER 15 MG TABLET PO (02:34)
[2018-12-26 04:02] VITALS: BP 122/57; PULSE 82; RESP 16; TEMP 36.9; O2SAT 93
[2018-12-26 04:02] LABS: PTT Partial Thromboplastin Tim 140 SECONDS (26.4-36.2)
[2018-12-26] MEDS: ONDANSETRON 4 MG/2 ML INJ IV (04:12)
--- NOTE | 2018-12-26 04:18 | PC.NURSE ---
Recieved call from ICU. Pt had run 16 bear run of VTach. Pt assessed, VSS BP 122/57, HR 57. Pt denies chest pain and SOB. Notified provider Trenton Jonse in person, new order for STAT EKG and labs. Both completed. Pt reported mild nausea, zofran IV given. PTT level of 140 at 0400. held heparin per protocol, will restart per protocol in one hr and decrease rate by 33ml/hr. Pt with oozing blood from left AC, IV pulled and pressure dressing applied, rechecked site at left arm and pulse present, no discoloration to hand/arm, pt denies symptoms of pressure dressing being too tight. Provider calling outside laborer pole crew to discuss possible transfer soon.
[2018-12-26 04:20] LABS: Hemoglobin 10.6 g/dL (13.5-17.5); Mean Corpuscular HGB Conc 34.2 % (30-36); Mean Corpuscular Hemoglobin 31.5 PG (26-34); Mean Corpuscular Volume 92.1 fL (80-100); Platelet Count 87 X10^3/uL (150-400); Red Blood Cell Count 3.37 X10^6/uL (4.5-5.9); Red Cell Distribution Width 16.8 % (11.6-14.8); White Blood Cell Count 2.9 X10^3/uL (4.5-11.0)
[2018-12-26 04:21] LABS: Add Manual Diff / Slide Review YES
[2018-12-26 04:25] LABS: HEMOLYSIS < 15 (0-50); Potassium 3.4 mmol/L (3.4-5.1)
[2018-12-26 04:28] LABS: BUN Creatinine Ratio 18.3 (6-22); Blood Urea Nitrogen 11 mg/dL (9-20); Calcium 7.5 mg/dL (8.4-10.2); Carbon Dioxide 28 mmol/L (22-32); Chloride 107 mmol/L (98-107); Creatine Kinase 25 U/L (55-170); Estimated Glomerular Filt Rate > 60.0 mL/min (>60); Glucose 102 mg/dL (80-110); Magnesium 1.6 mg/dL (1.6-2.3); Sodium 140 mmol/L (137-145)
[2018-12-26 04:40] LABS: Troponin I 0.062 ng/mL (0.01-0.034)
[2018-12-26 05:15] LABS: Hypochromasia 1+; Macrocytosis 1+; Neutrophils Absolute Manual 1566 /uL (3000-5900); Total Cells Counted 50
[2018-12-26 05:19] VITALS: BP 139/57; PULSE 79; RESP 18; TEMP 36.4; O2SAT 100
[2018-12-26] MEDS: POTASSIUM CHLORIDE 40 MEQ in SODIUM CHLORIDE 0.9% 500 ML 130 ML IV (05:33)
[2018-12-26 09:00] VITALS: BP 147/73; PULSE 84; RESP 16; TEMP 36.9; O2SAT 98
[2018-12-26] MEDS: Ticagrelor [Brilinta] 90 MG 90 EACH PO (09:07)
[2018-12-26] MEDS: ASPIRIN EC 81 MG TABLET PO (09:07)
[2018-12-26] MEDS: LISINOPRIL 5 MG TABLET PO (09:07)
[2018-12-26] MEDS: METOPROLOL IR 50 MG TABLET 75 MG PO (09:07)
[2018-12-26] MEDS: PANTOPRAZOLE 20 MG TABLET PO (09:07)
[2018-12-26] MEDS: ISOSORBIDE MONONITRATE ER 30 MG TABLET PO (09:07)
--- NOTE | 2018-12-26 09:27 | P.DS_ITS ---
History of Present Illness Chief complaint: Chest pain Narrative: Carlos Ortega is an 83-year-old male with a past medical history significant for CAD status post MA and coronary stenting x3, hypertension, hyperlipidemia, peripheral arterial disease with need for revascularization, and diffuse large B-cell lymphoma undergoing chemotherapy on Rituxan and Treanda who presented for chest pain radiating to neck. The patient reports that this morning he began to have abrupt onset substernal chest pain at rest that radiated up to his neck while lying in bed sleeping. He denies associated shortness of breath or diaphoresis. He endorses nausea and vomiting which has been occurring for the last 3 days that is presumably related to his recent cycle of chemotherapy. He recently completed his 4th cycle of Rituxan and Treanda for which he has tolerated well in the past. He denies upper respiratory tract symptoms including headache, rhinitis, nasal congestion, cough, or chest congestion. When the patient presented to the ED his potassium level was found to be significantly low at 2.9. He was hypertensive and tachycardic which improved with IV fluids. He reports his chest pain improved with nitroglycerin administration at home prior to arrival to the hospital. He reports he has not taken any of his medications the last 3 days due to the nausea and vomiting which include Brilinta for recent stent placement and Imdur for chronic angina. He continues to have chest pain upon my interview that is throbbing in quality, non-radiating, with associated nausea and his chest pain resolved with sublingual nitro. Ordered stat cardiac panel and potassium level. His EKG demonstrated right bundle branch block with diffuse ST depression that is unchanged from prior EKG's. He was admitted for further workup. Discharge Providers Date of admission: 12/25/18 14:06 Discharge Date: 12/26/18 Primary care physician: Kristie Sage DO Consults: 12/25/18 15:41 Consult to Dietitian, Adult Routine Comment: Reason For Exam: unintentional weight loss Discharge provider: Rebekah Callahan DO Summary Discharge Diagnosis: 1. Acute NSTEMI, present on admission. Active. 2. Nausea and vomiting with electrolyte derrangement and dehydration, present on admission. Active. 3. Pancytopenia, present on admission. Stable. 4. 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 Stable. 5. Chronic left lower extremity ulcer, present on admission. Stable. 6. Peripheral arterial disease with claudication and hyperlipidemia, chronic, present on admission. Presumed stable. 7. Hypertension, chronic, present on admission. Stable. 8. History of diabetes mellitus type II. Now in remission. Hospital Course: Carlos Ortega is an 83-year-old male with a past medical history significant for CAD status post MA and coronary stenting x3, hypertension, hyperlipidemia, peripheral arterial disease with need for revascularization, and diffuse large B-cell lymphoma undergoing chemotherapy on Rituxan and Treanda who presented for chest pain radiating to neck. 1. Acute NSTEMI, present on admission. Active. -Patient presented with left substernal chest pain at rest radiating to neck with associated nausea relieved with sublingual nitroglycerin. Concern for occlusion of cardiac stents as patient has not been able to take his medications for at least 3 days. -Cardiac risk factors include: CAD status post recent MA and stent placement, hypertension, hyperlipidemia, diabetes mellitus type 2, PAD, significant family history, and former smoker. -EKG demonstrated normal sinus rhythm with RBBB and diffuse ST depression in limb leads which is relatively unchanged from previous EKGs. -Initial troponin 0.055. Troponin trend 0.055->0.051->0.069->0.071->0.062. Currently chest pain free. -Cardiology consulted by ED physician and recommended admission for electrolyte replacement and monitoring of chest pain and troponin. Due to recurrence of chest pain with rising troponin cardiology recommends he be transferred for left heart catheterization and possible revascularization of stents or further stent placement. -Plan to control nausea and give medications only for now. Continued aspirin 81 mg daily, atorvastatin 40 mg daily at bedtime, metoprolol tartrate 75 mg twice daily, Brilinta 90 mg twice daily, and Imdur 30 mg daily. Patient is NPO. 2. Nausea and vomiting with electrolyte derrangement and dehydration, present on admission. Active. -Secondary to chemotherapy. Respiratory viral illness ruled out with respiratory viral PCR negative. -Plan to control nausea and give PO medications only for now. NPO. -Continued Zofran 4 mg IV every 4 hours as needed for nausea and metoclopramide 5 mg 3 times daily which was a new addition to his antiemetic regimen. If he continues to have persistent nausea would start lorazepam as needed. -Initial potassium level 2.9 and magnesium level 1.3. Most recent potassium level 3.4 and magnesium 1.6. He has received a total of 180 mEq of potassium and 6 g of magnesium upon transfer and will be close to or at goal K+ > 4.0 and Mg+ > 2.0. -Received 2 L NS in ED and has received approximately 4 L all together of fluid including IVF and electrolyte repletion. -Placed patient NPO for now due to nausea and vomiting and now need for left heart catheterization. 3. Pancytopenia, present on admission. Stable. -Secondary to chemotherapy. -Initial white count was 3.5, platelets 118, and hemoglobin 13.8. All blood counts trending down and likely due to hemodilution from fluids as above. -Continued to monitor CBC closely. 4. 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 Stable. -Patient is followed and managed by Dr. Levin of Oncology. -Patient previously went through four cycles of R-CHOP and involved field radiation finishing in June 2014. The patient then had relapse in September of 2018 and is undergoing chemotherapy with Treanda and Rituxan with completion of 4 cycles on 12/17/2018. Recent repeat PET scan is promising. 5. Chronic left lower extremity ulcer, present on admission. Stable. -Patient previously followed by wound care and was lost to follow-up due to multiple medical issues including: MA with stent placement, recurrence of large B-cell lymphoma, and need for revascularization of lower extremities which has not yet been pursued. -Chronic ulcers on left posterior and medial distal leg does not appear infected. -Recommend follow-up wound care clinic when able. 6. Peripheral arterial disease with claudication and hyperlipidemia, chronic, present on admission. Presumed stable. -Plan to control nausea and give medications only for now. Continued aspirin 81 mg daily, atorvastatin 40 mg daily at bedtime, Brilinta 90 mg twice daily, and Imdur 30 mg daily. Continue pain management due to claudication with gabapentin 300 mg daily at bedtime, MS Contin 15 mg every 12 hours, and oxycodone 2 tabs every 4-6 hours as needed for breakthrough pain. -The patient needs revascularization of lower extremities L>R which has been deferred during his cancer treatment. His lower extremity PAD will need to be addressed in the near future as his claudication is worsening bilaterally and likely due to diminished circulation and not the diffuse large B-cell lymphoma of only the left leg. 7. Hypertension, chronic, present on admission. Stable. -Continued metoprolol tartrate 75 mg twice daily and Imdur 30 mg daily. 8. History of diabetes mellitus type II. Now in remission. -Last hemoglobin A1c normal at 5.3% 12/2018. -Continued monitoring per PCP. -Patient NPO due to nausea and vomiting and now need for left heart catheterization. Code Status: Discussed code status in detail for which the patient would like to be DNR/DNI. He would reverse this for a procedure if necessary. DVT prophylaxis: Heparin gtt Status at Discharge Functional status at discharge: uses cane/walker Exam Vital Signs (past 8 hours): - 12/26/18 04:02 12/26/18 05:19 12/26/18 09:00 Temperature 98.4 F 97.5 F L 97.7 F Pulse Rate 82 79 84 Respiratory Rate 16 18 16 Blood Pressure 122/57 L 139/57 L 147/73 H Pulse Oximetry 93 100 98 Oxygen Delivery Method Room Air Oxygen Flow Rate 2 Narrative Exam Narrative: General: Elderly gentleman sitting in bedside chair in no acute distress, appears chronically ill and uncomfortable, but otherwise appropriately interactive. HEENT: Normocephalic, atraumatic. External ears without defect. Pupils equal, round, and reactive to light. Legally blind. Senilis arcus. Anicteric sclerae, moist conjunctivae, and no lid lag. Oropharynx free of erythema and cobble stoning with moist mucosa. Neck: Supple with full range of motion. Mild jugular venous distension. No lymphadenopathy or thyromegaly. Cardiovascular: Diminished throughout but appears to be regular rhythm and rate without murmurs, rubs, or gallops appreciated. Port on right side of anterior chest without surrounding erythema or edema. Pulmonary: Clear to auscultation bilaterally without crackles, wheezes, or rhonchi. Normal respiratory effort without use of accessory muscles. Abdomen: Soft, bowel sounds present, nontender, nondistended. No hepatosplenomegaly or masses appreciated. Extremities: No clubbing. Mild bilateral lower extremity edema L>R with poor circulation and dependent erythema but without cyanosis or signs of infarction. Unable to palpate distal left lower extremity pulses. Delayed capillary refill of bilateral lower extremities L>R. 2 small left lower extremity ulcers which are chronic and do not appear to be infected. Bilateral lower extremity stasis dermatitis. Skin: Normal temperature, turgor, and texture; no subcutaneous nodules appreciated. Neurological: Cranial nerves grossly intact. Psychiatric: Normal mood and affect. Alert and oriented to person, place, and time. Objective Labs Result Diagrams: 12/26/18 04:10 12/26/18 04:10 Labs: Laboratory Results - last 24 hr 12/25/18 12/25/18 12/25/18 09:46 10:30 18:00 WBC RBC Hgb Hct MCV MCH MCHC RDW Plt Count Neut % (Auto) Lymph % (Auto) Mckenzie % (Auto) Eos % (Auto) Baso % (Auto) Lymph # (Auto) Mckenzie # (Auto) Baso # (Auto) Total Counted Seg Neutrophils % Band Neutrophils % Lymphocytes % (Manual) Atypical Lymphs % Monocytes % (Manual) Neutrophils # (Manual) RBC Morphology Hypochromasia Macrocytosis APTT Sodium Potassium Chloride Carbon Dioxide BUN Creatinine Estimated GFR BUN/Creatinine Ratio Glucose Calcium Magnesium Total Creatine Kinase 24 L CK-MB (CK-2) TNP CK-MB (CK-2) Rel Index TNP Troponin I 0.051 H Urine Color Yellow Urine Appearance Clear Urine pH 7.0 Ur Specific Humble 1.010 Urine Protein Negative Urine Glucose (UA) Negative Urine Ketones 1+ H Urine Occult Blood Negative Urine Nitrate Negative Urine Bilirubin Negative Urine Urobilinogen 0.2 Ur Leukocyte Esterase Negative Urine RBC 1-5/hpf None seen Urine WBC 1-5/hpf 0-1/hpf Ur Squamous Epith Cells 0-1 /hpf Amorphous Sediment 2+ Urine Bacteria Occasional (0-1) None seen Ur Culture Indicated? Specimen cultured Cult not indicated Chlamy pneumoniae PCR Adenovirus (PCR) B.parapertussis DNA PCR Coronavirus OC43 (PCR) Coronavirus HKU1 (PCR) Coronavirus 229E (PCR) Coronavirus NL63 (PCR) Human Metapneumovir PCR Influenza Type A (PCR) Influenza Type B (PCR) M. pneumoniae (PCR) Parainfluenza 1 (PCR) Parainfluenza 2 (PCR) Parainfluenza 3 (PCR) Parainfluenza 4 (PCR) RSV (PCR) Entero/Rhino (PCR) 12/25/18 12/25/18 12/25/18 18:35 18:35 18:35 WBC RBC Hgb Hct MCV MCH MCHC RDW Plt Count Neut % (Auto) Lymph % (Auto) Mckenzie % (Auto) Eos % (Auto) Baso % (Auto) Lymph # (Auto) Mckenzie # (Auto) Baso # (Auto) Total Counted Seg Neutrophils % Band Neutrophils % Lymphocytes % (Manual) Atypical Lymphs % Monocytes % (Manual) Neutrophils # (Manual) RBC Morphology Hypochromasia Macrocytosis APTT Sodium Potassium 3.2 L Chloride Carbon Dioxide BUN Creatinine Estimated GFR BUN/Creatinine Ratio Glucose Calcium Magnesium 1.3 L Total Creatine Kinase 27 L CK-MB (CK-2) TNP CK-MB (CK-2) Rel Index TNP Troponin I 0.069 H Urine Color Urine Appearance Urine pH Ur Specific Humble Urine Protein Urine Glucose (UA) Urine Ketones Urine Occult Blood Urine Nitrate Urine Bilirubin Urine Urobilinogen Ur Leukocyte Esterase Urine RBC Urine WBC Ur Squamous Epith Cells Amorphous Sediment Urine Bacteria Ur Culture Indicated? Chlamy pneumoniae PCR Adenovirus (PCR) B.parapertussis DNA PCR Coronavirus OC43 (PCR) Coronavirus HKU1 (PCR) Coronavirus 229E (PCR) Coronavirus NL63 (PCR) Human Metapneumovir PCR Influenza Type A (PCR) Influenza Type B (PCR) M. pneumoniae (PCR) Parainfluenza 1 (PCR) Parainfluenza 2 (PCR) Parainfluenza 3 (PCR) Parainfluenza 4 (PCR) RSV (PCR) Entero/Rhino (PCR) 12/25/18 12/25/18 12/25/18 18:58 21:30 23:55 WBC RBC Hgb Hct MCV MCH MCHC RDW Plt Count Neut % (Auto) Lymph % (Auto) Mckenzie % (Auto) Eos % (Auto) Baso % (Auto) Lymph # (Auto) Mckenzie # (Auto) Baso # (Auto) Total Counted Seg Neutrophils % Band Neutrophils % Lymphocytes % (Manual) Atypical Lymphs % Monocytes % (Manual) Neutrophils # (Manual) RBC Morphology Hypochromasia Macrocytosis APTT 37 H D Sodium Potassium Chloride Carbon Dioxide BUN Creatinine Estimated GFR BUN/Creatinine Ratio Glucose Calcium Magnesium Total Creatine Kinase 24 L CK-MB (CK-2) TNP CK-MB (CK-2) Rel Index TNP Troponin I 0.071 H Urine Color Urine Appearance Urine pH Ur Specific Humble Urine Protein Urine Glucose (UA) Urine Ketones Urine Occult Blood Urine Nitrate Urine Bilirubin Urine Urobilinogen Ur Leukocyte Esterase Urine RBC Urine WBC Ur Squamous Epith Cells Amorphous Sediment Urine Bacteria Ur Culture Indicated? Chlamy pneumoniae PCR Not detected Adenovirus (PCR) Not detected B.parapertussis DNA PCR Not detected Coronavirus OC43 (PCR) Not detected Coronavirus HKU1 (PCR) Not detected Coronavirus 229E (PCR) Not detected Coronavirus NL63 (PCR) Not detected Human Metapneumovir PCR Not detected Influenza Type A (PCR) Not detected Influenza Type B (PCR) Not detected M. pneumoniae (PCR) Not detected Parainfluenza 1 (PCR) Not detected Parainfluenza 2 (PCR) Not detected Parainfluenza 3 (PCR) Not detected Parainfluenza 4 (PCR) Not detected RSV (PCR) Not detected Entero/Rhino (PCR) Not detected 12/26/18 12/26/18 12/26/18 03:25 04:10 04:10 WBC 2.9 L RBC 3.37 L Hgb 10.6 L Hct 31.0 L MCV 92.1 MCH 31.5 MCHC 34.2 RDW 16.8 H Plt Count 87 L Neut % (Auto) Not Reportable Lymph % (Auto) Not Reportable Mckenzie % (Auto) Not Reportable Eos % (Auto) Not Reportable Baso % (Auto) Not Reportable Lymph # (Auto) Not Reportable Mckenzie # (Auto) Not Reportable Baso # (Auto) Not Reportable Total Counted 50 Seg Neutrophils % 40.0 Band Neutrophils % 14.0 H Lymphocytes % (Manual) 14.0 L Atypical Lymphs % 6.0 H Monocytes % (Manual) 26.0 H Neutrophils # (Manual) 1566 L RBC Morphology See below Hypochromasia 1+ H Macrocytosis 1+ H APTT 140 H* D Sodium 140 Potassium 3.4 Chloride 107 Carbon Dioxide 28 BUN 11 Creatinine 0.60 L Estimated GFR > 60.0 BUN/Creatinine Ratio 18.3 Glucose 102 Calcium 7.5 L Magnesium 1.6 Total Creatine Kinase 25 L CK-MB (CK-2) TNP CK-MB (CK-2) Rel Index TNP Troponin I 0.062 H Urine Color Urine Appearance Urine pH Ur Specific Humble Urine Protein Urine Glucose (UA) Urine Ketones Urine Occult Blood Urine Nitrate Urine Bilirubin Urine Urobilinogen Ur Leukocyte Esterase Urine RBC Urine WBC Ur Squamous Epith Cells Amorphous Sediment Urine Bacteria Ur Culture Indicated? Chlamy pneumoniae PCR Adenovirus (PCR) B.parapertussis DNA PCR Coronavirus OC43 (PCR) Coronavirus HKU1 (PCR) Coronavirus 229E (PCR) Coronavirus NL63 (PCR) Human Metapneumovir PCR Influenza Type A (PCR) Influenza Type B (PCR) M. pneumoniae (PCR) Parainfluenza 1 (PCR) Parainfluenza 2 (PCR) Parainfluenza 3 (PCR) Parainfluenza 4 (PCR) RSV (PCR) Entero/Rhino (PCR) Discharge Plan Discharge Plan Patient Disposition: [facility] Transfer to: [facility] Under care of provider: Dr. Mesa, hospitalist and Dr. Zuleta, licensed optician Discharge Med Rec/Prescriptions Prescriptions: Continued Centrum Silver 0.4-300-250 mg-mcg-mcg Tablet 1 tab PO DAILY Qty: 0 RF: 0 metoclopramide HCl 5 mg tablet 5 mg PO QACHS Qty: 30 RF: 0 omeprazole 20 mg capsule,delayed release(DR/EC) 20 mg PO DAILY Qty: 30 RF: 0 nitroglycerin 0.4 mg tablet, sublingual 0.4 mg SL Q5-15M PRN (Reason: Chest Pain) RF: 0 isosorbide mononitrate 30 mg tablet extended release 24 hr 30 mg PO DAILY Qty: 30 RF: 2 gabapentin 300 mg capsule 300 mg PO BEDTIME Qty: 30 RF: 5 atorvastatin 40 mg Tablet 40 mg PO BEDTIME RF: 0 metoprolol tartrate 50 mg Tablet 75 mg PO BID RF: 0 Brilinta 90 mg Tablet 90 mg PO BID RF: 0 lisinopril 5 mg tablet 5 mg PO DAILY Qty: 30 RF: 0 magnesium oxide 400 mg Capsule 400 mg PO BID RF: 0 morphine [MS Contin] 15 mg Tablet Extended Release 15 mg PO Q8H 30 Days Qty: 90 RF: 0 aspirin 325 mg Tablet 81 mg PO DAILY RF: 0 acetaminophen 500 mg Tablet 500 - 1,000 mg PO Q6H PRN (Reason: pain) RF: 0 oxycodone-acetaminophen 5-325 mg Tablet 2 tab PO Q4-6H PRN (Reason: pain) RF: 0 Follow up/Referrals: Kristie Sage DO [Primary Care Provider] - Discharge Orders: Discharge (Order); Ordered 12/26/18 Ordered By: Rebekah Callahan Provider Discharge Instructions Diet: Nothing by Mouth Activity: Bedrest Discharge Data Primary Care Provider: Kristie Sage Attending Provider: Rebekah Callahan Admit Date/Time: 12/25/18 14:06
[2018-12-26] MEDS: MAGNESIUM SULFATE 4 GM/100 ML PIGGYBACK IV (09:33)
[2018-12-26] MEDS: POTASSIUM CHLORIDE 40 MEQ in SODIUM CHLORIDE 0.9% 100 ML 30 ML IV (10:19)
[2018-12-26 10:30] LABS: PTT Partial Thromboplastin Tim 99 SECONDS (26.4-36.2)
--- NOTE | 2018-12-26 12:33 | PC.NURSE ---
Transfer Pt resting in bed comfortably. A/Ox4. states pain present in left calf/foot. On tele. did have 17 beat run of Vta, notified MD. [facility] Accessed port with 20g 3/4 needle according to hospital policies and procedures. pt received 40mEq KCl through peripheral IV. Additional 40 mEq given through port and was concentrated. This was started and ran at pt's d/c. Pt also had 4 mg of IV magnesium running at time of d/c also. Pt had heparin gtt. PTT at 1030 was 99. Spoke with MD since per protocol was supposed to hold and restart in 30 min. However, MD stated for transport she wanted heparin drip to continue at current rate of 600 units/hr (12 ml/hr). Pt on 2L O2 via NC. Report called to ILIR Rossi at [facility]. Report also given to ILIR Fong for ACLS transport. Son present prior to transfer. Pt left with PIV and Port accessed. Dressing on Left Calf CDI. Pt left around 1100.
--- NOTE | 2018-12-26 14:51 | CM.DANOTE ---
Discharge Planning/Care Management DCP: assessment: initiated. Case received and reviewed. READMIT < 30 days noted: see template below for specifics. Case was discussed in Team Rounds with Dr. Callahan and she noted she was in process of transferring pt to [facility] for higher level of cardiac care. Payer: [facility]. Dr. Callahan worked with RN coordinator Teja for facilitation of this hospital to hospital transfer. A check in later shows that pt did transfer. His son was at bedside during this time. Advanced directive, confirm from FAMILY Start: 12/25/18 15:42 Freq: Q24H Status: Discharge Protocol: Document 12/25/18 15:42 EM (Rec: 12/25/18 16:26 EM [id number]) Advance Directive, confirm on record Time 16:26 Person contacted Juan Jose Copy received No CM Discharge Assessment Start: 12/26/18 14:48 Freq: Status: Active Protocol: Document 12/26/18 14:48 ITV (Rec: 12/26/18 14:51 ITV [id number]) Discharge Planning Assessment Advance Directives? Yes History Provided By Patient Family Member Medical Record Has Patient been admitted in last 30 Yes days? Comment Pt was here under care of hospitalist team 12/15-2018 with a d/c to home setting and [facility] on 12/16 . Prior Living Arrangements House Household Members spouse Discharge Plan Transfer to Higher Level of Care Review Status In Process
== END 2018-12-26 11:00 | disposition short-term general hospital (02) | DRG 280 ==
LOC: ED 13:39 → AC 14:40
PROVIDERS: Nurse Practitioner Adult Health; Admitting Provider Internal Medicine; Emergency Provider Emergency Medicine; Family Provider Family Medicine; PCP Family Medicine; Visit Provider Internal Medicine
DX: I21.4 Non-ST elevation (NSTEMI) myocardial infarction (principal); D61.811 Other drug-induced pancytopenia; C85.15 Unspecified B-cell lymphoma, lymph nodes of inguinal region and lower limb; I47.2 Ventricular tachycardia; L97.321 Non-pressure chronic ulcer of left ankle limited to breakdown of skin; E87.6 Hypokalemia; R11.2 Nausea with vomiting, unspecified; T45.1X5A Adverse effect of antineoplastic and immunosuppressive drugs, initial encounter; E86.0 Dehydration; I73.9 Peripheral vascular disease, unspecified; I48.91 Unspecified atrial fibrillation; I45.10 Unspecified right bundle-branch block
CPT/HCPCS: 36415; 36591; 71045; 71275; 74018; 74174; 80048; 80053; 81001; 81003; 81015; 82550; 82962; 83690; 83735; 83880; 84132; 84145; 84484; 85025; 85610; 85730; 87086; 87633; 93005; 93306; 93971; 96365; 96375; 96376; 99285; G0378; J1644; J2270; J2405; J3475; J3480; Q9967

== ENCOUNTER → 2019-01-12 13:00 | Outpatient (CLI) | payer OTHER, SELFPAY ==
[2018-12-25 15:31] VITALS: BMI 20.9
== END ==
PROVIDERS: Family Provider Family Medicine; PCP Family Medicine; Visit Provider Podiatrist Primary Podiatric Medicine
DX: I70.245 Atherosclerosis of native arteries of left leg with ulceration of other part of foot (principal); E11.52 Type 2 diabetes mellitus with diabetic peripheral angiopathy with gangrene; L89.153 Pressure ulcer of sacral region, stage 3; L97.323 Non-pressure chronic ulcer of left ankle with necrosis of muscle; L97.821 Non-pressure chronic ulcer of other part of left lower leg limited to breakdown of skin
CPT/HCPCS: 99203; 99213

== ENCOUNTER → 2019-01-19 12:16 | Outpatient (CLI) | payer OTHER, SELFPAY ==
[2018-12-25 15:31] VITALS: BMI 20.9
== END ==
PROVIDERS: Family Provider Family Medicine; PCP Family Medicine; Visit Provider Podiatrist Primary Podiatric Medicine
DX: I70.243 Atherosclerosis of native arteries of left leg with ulceration of ankle (principal); I70.248 Atherosclerosis of native arteries of left leg with ulceration of other part of lower leg; L97.821 Non-pressure chronic ulcer of other part of left lower leg limited to breakdown of skin; I73.9 Peripheral vascular disease, unspecified; L89.153 Pressure ulcer of sacral region, stage 3; E11.51 Type 2 diabetes mellitus with diabetic peripheral angiopathy without gangrene; L97.323 Non-pressure chronic ulcer of left ankle with necrosis of muscle
CPT/HCPCS: 11043